=== PATIENT | female | born 1970 | race Caucasian/White ===

== ENCOUNTER 2020-02-25 09:21 | Inpatient (IN) | payer MEDICARE, SELFPAY ==
[2020-02-25] VITALS (10 sets, daily range): BP systolic 125–216; BP diastolic 73–120; PULSE 68–96; RESP 12–20; TEMP 36.4–36.6; O2SAT 95–97; BMI 28.1
--- NOTE | 2020-02-25 09:29 | ECG_ITS ---
Test Reason : WEAKNESS Blood Pressure : / mmHG Vent. Rate : 089 BPM Atrial Rate : 089 BPM P-R Int : 136 ms QRS Dur : 072 ms QT Int : 356 ms P-R-T Axes : 044 018 039 degrees QTc Int : 433 ms Normal sinus rhythm Possible Left atrial enlargement Borderline ECG No previous ECGs available Referred By: Betsy Lopez Electronically Signed By:Chaim Savage
--- NOTE | 2020-02-25 09:30 | XR_ITS ---
EXAMINATION: XR CHEST CLINICAL INFORMATION: Cough. COMPARISON: None TECHNIQUE: Frontal view of the chest was obtained. FINDINGS: No significant abnormality is noted involving the heart, lungs, mediastinum, bony thorax or soft tissues. XR/XR chest 1V IMPRESSION: Unremarkable chest examination.
--- NOTE | 2020-02-25 09:36 | ED_ITS ---
HPI - URI/Sore Throat General Stated Complaint: COVID LIKE SYMPTOMS Time Seen by Provider: 02/25/20 09:29 Source: patient and EMS Mode of arrival: EMS Limitations: no limitations History of Present Illness MD elicited complaint: fever, cough and other (body aches, weakness, anorexia, has not taken BP medications in 3 days, takin robitussin OTC) Onset (ago): day(s) (3) Consistency: constant Severity: moderate Description of mucous: clear Able to tolerate fluids by mouth: Yes Exacerbating factors: exertion Relieving factors: OTC cold medicine Associated symptoms: fever, chills, myalgias, nasal congestion and cough Treatments prior to arrival: none Related Data Allergies Allergy/AdvReac Type Severity Reaction Status Date / Time Iodinated Contrast Media Allergy Mild RASH Unverified 11/27/19 16:37 [CONTRAST, IV] DECONGESTIONS Allergy Unknown INCREASED Uncoded 11/27/19 16:37 HEART RATE Review of Systems Review of Systems: .ROSConstitutional : pos Fever, pos Chills ENT/Mouth : No sore throat, No Rhinorrhea, No Swallowing Difficulty Eyes: No Eye Pain, No Swelling, No Redness Cardiovascular : No Chest Pain, positive SOB, No Orthopnea, no Edema Respiratory : pos Cough, No Sputum, No Wheezing, positive dyspnea Gastrointestinal : No Nausea, No Vomiting, No Diarrhea, No abdominal Pain, No Hematochezia, No Melena Genitourinary : No Dysuria, No Urinary Frequency, No Hematuria Musculoskeletal : No joint pain, pos Myalgias Skin : No Skin Lesions, No rash Neuro : No Weakness, No Numbness, No Dizziness, No Headache Psych : No Anxiety/Panic, No Depression Heme/Lymph: No Bruising, No Lymphadenopathy Endocrine : No Polyuria, No Polydipsia All other systems reviewed and are negative [facility] Past Medical History Attestation statement: The following information was validated with the patient. Medical History (Updated 02/25/20 @ 15:23 by Betsy Lopez DO) Cerebral aneurysm HTN (hypertension) Myocardial infarct Surgical History (Updated 02/25/20 @ 10:17 by Betsy Lopez DO) H/O craniotomy Social History Social History (Updated 02/25/20 @ 10:17 by Betsy Lopez DO) Smoking Status: Current every day smoker Use of substances other than those prescribed or required for medical reasons: No Advance Directives: No Advance Directives Information Provided: Yes Physical Exam Vital Signs: Vital Signs: Last Vital Signs Temp 97.9 F 02/25/20 13:01 Pulse 68 02/25/20 15:02 Resp 12 02/25/20 15:02 BP 178/99 H 02/25/20 15:02 Pulse Ox 96 02/25/20 15:02 Appearance: Alert. Oriented X3. Anxious, mild acute distress. Eyes: Pupils equal, round and reactive to light. ENT: Pharynx normal. Neck: Normal inspection. Neck supple. CVS: Normal heart rate and rhythm. Pulses normal. Respiratory: No respiratory distress. Breath sounds normal. Abdomen: Soft and nontender. Skin: Skin warm and dry. Normal skin color. Normal skin turgor. Extremities: No lower extremity edema. No calf ttp Neuro: Oriented X 3. No motor deficit. No sensory deficit. Course Course Course Narrative: BP increased, IV labetalol ordered at this time, may require medical admission for HTNive episode lactic acidosis increased repeat IVF ordered, she states she is very anxious and admits to daily use of 3 nips ?ETOH withdrawal, trop remains flat repeat IV anti HTNive medications, IV ativan, start on phenobarb protocol lactic acidosis and LFTs likely due to ETOH and ETOH withdrawal and not infection or severe sepsis MDM - URI/Sore Throat MDM Narrative Medical decision making narrative: 49 yo female with URIs and HTN due to lack of her medications and taking OTC cold medicine at this time will need labs, COVID swab, CXR, IV morphine for body aches, PO BP medications, dispo per results and findigns. Lab Data Result diagrams: 02/25/20 10:27 02/25/20 10:26 Labs: Lab Results 02/25/20 02/25/20 02/25/20 Range/Units 10:26 10:26 10:26 WBC (4.8-10.8) X10*3/uL RBC (4.20-5.50) X10*6/uL Hgb (12.0-16.0) g/dl Hct (37-47) % MCV (80-98) fL MCH (27.0-33.0) pg MCHC (31.0-35.0) g/dl RDW (11.0-16.0) % Plt Count (160-400) X10*3/uL MPV (9.4-12.3) fL Immature Gran % (Auto) (0.0-0.4) % Neut % (Auto) (45-73) % Lymph % (Auto) (20-40) % [place] % (Auto) (2-11) % Eos % (Auto) (0-4) % Baso % (Auto) (0-2) % Lymph # (Auto) (1.2-4.9) X10*3/uL [place] # (Auto) (0.1-1.2) X10*3/uL Eos # (Auto) (0.0-0.4) X10*3/uL Baso # (Auto) (0.0-0.2) X10*3/uL Abs Immat Gran (auto) (0.00-0.03) X10*3/uL Absolute Neuts (auto) (2.0-8.3) X10*3/uL Absolute Nucleated RBC (0.0-0.012) X10*3/uL Nucleated RBC % (auto) (0.0-0.2) /100WBC Hold Blue Top SEE NOTE Sodium 139 (135-145) mmol/L Potassium 3.5 (3.3-5.1) mmol/l Chloride 102 (96-108) mmol/L Carbon Dioxide 24 (22-29) mmol/L Anion Gap 17 (12-20) BUN 5 L (9-16) mg/dL Creatinine 0.75 (0.5-1.4) mg/dL Estim Creat Clear Calc TNP Estimated GFR > 60 Random Glucose 100 (60-115) mg/dL Lactic Acid 3.4 H* (0.5-2.0) mmol/L Lactic Acid Fup @ 2Hr (0.5-2.0) mmol/L Calcium 8.2 L (8.4-10.2) mg/dL Magnesium (1.6-2.6) mg/dL Ferritin 465 H (10-250) ng/mL Total Bilirubin 1.2 H (0.0-1.0) mg/dL Direct Bilirubin 0.5 (0.0-0.5) mg/dL AST 50 H (5-31) U/L ALT 50 H (0-31) U/L Alkaline Phosphatase 233 H (39-117) U/L Lactate Dehydrogenase 246 H (122-220) U/L Total Creatine Kinase 63 (26-140) U/L Troponin I High Sens (<3.5-17.0) ng/L Total Protein 6.8 (6.5-8.0) g/dL Albumin 3.5 (3.5-5.0) g/dL Coronavirus (PCR) (Negative) Influenza Type A (PCR) (Negative) Influenza Type B (PCR) (Negative) RSV RNA Qual (PCR) (Negative) 02/25/20 02/25/20 02/25/20 Range/Units 10:26 10:26 10:26 WBC (4.8-10.8) X10*3/uL RBC (4.20-5.50) X10*6/uL Hgb (12.0-16.0) g/dl Hct (37-47) % MCV (80-98) fL MCH (27.0-33.0) pg MCHC (31.0-35.0) g/dl RDW (11.0-16.0) % Plt Count (160-400) X10*3/uL MPV (9.4-12.3) fL Immature Gran % (Auto) (0.0-0.4) % Neut % (Auto) (45-73) % Lymph % (Auto) (20-40) % [place] % (Auto) (2-11) % Eos % (Auto) (0-4) % Baso % (Auto) (0-2) % Lymph # (Auto) (1.2-4.9) X10*3/uL [place] # (Auto) (0.1-1.2) X10*3/uL Eos # (Auto) (0.0-0.4) X10*3/uL Baso # (Auto) (0.0-0.2) X10*3/uL Abs Immat Gran (auto) (0.00-0.03) X10*3/uL Absolute Neuts (auto) (2.0-8.3) X10*3/uL Absolute Nucleated RBC (0.0-0.012) X10*3/uL Nucleated RBC % (auto) (0.0-0.2) /100WBC Hold Blue Top Sodium (135-145) mmol/L Potassium (3.3-5.1) mmol/l Chloride (96-108) mmol/L Carbon Dioxide (22-29) mmol/L Anion Gap (12-20) BUN (9-16) mg/dL Creatinine (0.5-1.4) mg/dL Estim Creat Clear Calc Estimated GFR Random Glucose (60-115) mg/dL Lactic Acid (0.5-2.0) mmol/L Lactic Acid Fup @ 2Hr (0.5-2.0) mmol/L Calcium (8.4-10.2) mg/dL Magnesium 1.7 (1.6-2.6) mg/dL Ferritin (10-250) ng/mL Total Bilirubin (0.0-1.0) mg/dL Direct Bilirubin (0.0-0.5) mg/dL AST (5-31) U/L ALT (0-31) U/L Alkaline Phosphatase (39-117) U/L Lactate Dehydrogenase (122-220) U/L Total Creatine Kinase (26-140) U/L Troponin I High Sens 22.1 H (<3.5-17.0) ng/L Total Protein (6.5-8.0) g/dL Albumin (3.5-5.0) g/dL Coronavirus (PCR) NEGATIVE (Negative) Influenza Type A (PCR) NEGATIVE (Negative) Influenza Type B (PCR) NEGATIVE (Negative) RSV RNA Qual (PCR) NEGATIVE (Negative) 02/25/20 02/25/20 02/25/20 Range/Units 10:27 13:47 13:47 WBC 5.7 (4.8-10.8) X10*3/uL RBC 4.51 (4.20-5.50) X10*6/uL Hgb 16.0 (12.0-16.0) g/dl Hct 45.8 (37-47) % MCV 101.6 H (80-98) fL MCH 35.5 H (27.0-33.0) pg MCHC 34.9 (31.0-35.0) g/dl RDW 13.5 (11.0-16.0) % Plt Count 261 (160-400) X10*3/uL MPV 9.8 (9.4-12.3) fL Immature Gran % (Auto) 0.2 (0.0-0.4) % Neut % (Auto) 63.7 (45-73) % Lymph % (Auto) 27.0 (20-40) % [place] % (Auto) 6.3 (2-11) % Eos % (Auto) 1.9 (0-4) % Baso % (Auto) 0.9 (0-2) % Lymph # (Auto) 1.6 (1.2-4.9) X10*3/uL [place] # (Auto) 0.4 (0.1-1.2) X10*3/uL Eos # (Auto) 0.1 (0.0-0.4) X10*3/uL Baso # (Auto) 0.1 (0.0-0.2) X10*3/uL Abs Immat Gran (auto) 0.01 (0.00-0.03) X10*3/uL Absolute Neuts (auto) 3.7 (2.0-8.3) X10*3/uL Absolute Nucleated RBC 0.000 (0.0-0.012) X10*3/uL Nucleated RBC % (auto) 0.0 (0.0-0.2) /100WBC Hold Blue Top Sodium (135-145) mmol/L Potassium (3.3-5.1) mmol/l Chloride (96-108) mmol/L Carbon Dioxide (22-29) mmol/L Anion Gap (12-20) BUN (9-16) mg/dL Creatinine (0.5-1.4) mg/dL Estim Creat Clear Calc Estimated GFR Random Glucose (60-115) mg/dL Lactic Acid (0.5-2.0) mmol/L Lactic Acid Fup @ 2Hr 3.9 H* (0.5-2.0) mmol/L Calcium (8.4-10.2) mg/dL Magnesium (1.6-2.6) mg/dL Ferritin (10-250) ng/mL Total Bilirubin (0.0-1.0) mg/dL Direct Bilirubin (0.0-0.5) mg/dL AST (5-31) U/L ALT (0-31) U/L Alkaline Phosphatase (39-117) U/L Lactate Dehydrogenase (122-220) U/L Total Creatine Kinase (26-140) U/L Troponin I High Sens 23.9 H (<3.5-17.0) ng/L Total Protein (6.5-8.0) g/dL Albumin (3.5-5.0) g/dL Coronavirus (PCR) (Negative) Influenza Type A (PCR) (Negative) Influenza Type B (PCR) (Negative) RSV RNA Qual (PCR) (Negative) ECG Data Attestation: I personally reviewed and interpreted this ECG as follows: ECG interpretation date: 02/25/20 ECG interpretation time: 10:18 Interpretation: Rate: 89 Rhythm: NSR [place]: normal Normal P waves. Normal WAQAR. Normal QRS complex. ST T wave : normal qTC: normal prior studies: no acute ischemia The study has been interpreted contemporaneously by me. . Critical Care Time Critical Care Time Critical Care Time: Yes Total Critical Care Time: 35 Attestation: repeat IV labetalol, IV ativan, phenobarb protocol for ETOH withdrawal I attest to this time spent taking care of the patient Discharge Plan Discharge Clinical Impression: Acidosis, lactic HTN (hypertension) Qualifiers: Hypertension type: unspecified Qualified Code(s): I10 - Essential (primary) hypertension Alcohol withdrawal Qualifiers: Complication of substance-induced condition: uncomplicated Qualified Code(s): F10.230 - Alcohol dependence with withdrawal, uncomplicated Patient Disposition: Admitted As Inpatient
[2020-02-25 10:42] LABS: MANUAL DIFF FLAG NO
[2020-02-25 10:50] LABS: White Blood Count 5.7 X10*3/uL (4.8-10.8)
[2020-02-25 10:51] LABS: Basophils Absolute Auto 0.1 X10*3/uL (0.0-0.2); Basophils Percent Auto 0.9 % (0-2); Eosinophils Absolute Auto 0.1 X10*3/uL (0.0-0.4); Eosinophils Percent Auto 1.9 % (0-4); Hematocrit 45.8 % (37-47); Imm Gran Abs Auto 0.01 X10*3/uL (0.00-0.03); Imm Gran Pct Auto 0.2 % (0.0-0.4); Lymphocytes Absolute Auto 1.6 X10*3/uL (1.2-4.9); Mean Corpuscular HGB Conc 34.9 g/dl (31.0-35.0); Mean Corpuscular Hemoglobin 35.5 pg (27.0-33.0); Mean Corpuscular Volume 101.6 fL (80-98); Mean Platelet Volume 9.8 fL (9.4-12.3); Monocytes Absolute Auto 0.4 X10*3/uL (0.1-1.2); Monocytes Percent Auto 6.3 % (2-11); Neutrophils Absolute Auto 3.7 X10*3/uL (2.0-8.3); Neutrophils Percent Auto 63.7 % (45-73); Platelet Count 261 X10*3/uL (160-400); Red Blood Count 4.51 X10*6/uL (4.20-5.50); Red Cell Distribution Width 13.5 % (11.0-16.0)
[2020-02-25 11:07] LABS: Magnesium 1.7 mg/dL (1.6-2.6)
[2020-02-25 11:09] LABS: Alanine Aminotransferase 50 U/L (0-31); Albumin Level 3.5 g/dL (3.5-5.0); Alkaline Phosphatase 233 U/L (39-117); Anion Gap 17 (12-20); Aspartate Amino Transferase 50 U/L (5-31); Bilirubin Direct 0.5 mg/dL (0.0-0.5); Bilirubin Total 1.2 mg/dL (0.0-1.0); Blood Urea Nitrogen 5 mg/dL (9-16); Calcium 8.2 mg/dL (8.4-10.2); Carbon Dioxide 24 mmol/L (22-29); Chloride 102 mmol/L (96-108); Estimated Glomerular Filt Rate > 60; Glucose Random 100 mg/dL (60-115); Lactate Dehydrogenase 246 U/L (122-220); Lactic Acid 3.4 mmol/L (0.5-2.0); Potassium 3.5 mmol/l (3.3-5.1); Sodium 139 mmol/L (135-145); Total Protein 6.8 g/dL (6.5-8.0)
[2020-02-25 11:27] LABS: Influenza A PCR NEGATIVE (Negative); Influenza B PCR NEGATIVE (Negative); Resp Syncy Virus RNA Qual PCR NEGATIVE (Negative); SARS COV2 PCR INHOUSE NEGATIVE (Negative)
[2020-02-25 11:31] LABS: Ferritin 465 ng/mL (10-250)
--- NOTE | 2020-02-25 11:37 | CT_ITS ---
EXAMINATION: CT CHEST WITHOUT CONTRAST CLINICAL INFORMATION: Cough and fevers COMPARISON: Chest x-ray of same day and CTA of January 21, 2018 TECHNIQUE: Multidetector volumetric CT imaging of the chest was done. Axial MIP volume rendering provided. Sagittal and coronal reformatted images were obtained. This CT examination was performed using dose optimization techniques as appropriate, variously including the following: *Automated exposure control *Adjustment of mA and/or kV according to patient size (this includes techniques or standardized protocols for targeted exams where dose is matched to indication/reason for exam; i.e. extremities or head) *Use of iterative reconstruction technique DLP: 219 mGy-cm FINDINGS: LUNGS: There are mild changes of centrilobular emphysema seen within the upper lobes bilaterally. Central airways are patent. No evidence of bronchiectasis. There is bilateral bronchial wall thickening present. No confluent pneumonitis. There is some mild dependent atelectasis bilaterally.There are a few sub-4 mm densities present. There are regions of scarring or discoid atelectasis seen about the anterior aspect of the lower lobes bilaterally. There is a 5 mm noncalcified nodular density seen within the right middle lobe on image 321 of [id number]. This was present on prior study of January 21, 2018 MEDIASTINUM: Heart normal size. Coronary artery calcification seen. Small amount of aortic valve calcification noted. No pericardial effusion. No mediastinal or hilar lymphadenopathy. No thoracic aortic aneurysm. PLEURA: There is no pleural effusion. No pleural mass or thickening. AXILLA: No lymphadenopathy. UPPER ABDOMEN: There is diffuse fatty infiltration of the liver. No adrenal gland masses. OSSEOUS STRUCTURES: No suspicious destructive bony lesions identified. CT/CT chest wo con IMPRESSION: Mild changes of centrilobular emphysema within the upper lobes bilaterally. Stable right middle lobe density. No significant confluent airspace disease appreciated.
[2020-02-25 11:44] LABS: Troponin-I High Sensitivity 22.1 ng/L (<3.5-17.0)
[2020-02-25] MEDS: 0.9 % Sodium Chloride 500 ML IV (11:45)
--- NOTE | 2020-02-25 11:48 | PC.NURSE ---
PTS CHARTING WAS INITIALLY PAPER DOCUMENTATION PLEASE SEE DOWNTIME FORMS
[2020-02-25 12:42] LABS: Reflex Lactate? Lactic Acid Added
[2020-02-25] MEDS: ondansetron HCL 4 MG/2 ML VIAL IVPUSH (12:57)
[2020-02-25] MEDS: Labetalol HCL 100 MG/20 ML VIAL 10 MG IVPUSH ×2 (12:59→14:26)
[2020-02-25] MEDS: oxyCODONE HCl Immed Release 5 MG TABLET 10 MG PO (13:53)
--- NOTE | 2020-02-25 14:34 | PC.NURSE ---
Pt reports decreased nausea s/p dose of Zofran, tolerating po fluids. C/O generalized body pain- medicated per mar. awaiting lab results
[2020-02-25 14:40] LABS: ~Lactic Acid-LAB USE ONLY 3.9 mmol/L (0.5-2.0)
[2020-02-25 14:47] LABS: Troponin-I High Sensitivity 23.9 ng/L (<3.5-17.0)
[2020-02-25] MEDS: 0.9 % Sodium Chloride 1,000 ML 999 ML IVCONT (15:27)
[2020-02-25] MEDS: LORazepam 2 MG/ML VIAL 1 MG IVPUSH (15:27)
--- NOTE | 2020-02-25 15:49 | PC.NURSE ---
PT MEDICATED CHARTED SHE IS NOW SLEEPING AND APPEARS MORE COMFORTABLE
[2020-02-25 15:56] LABS: Reflex Lactate? 2 Y
--- NOTE | 2020-02-25 15:58 | US_ITS ---
EXAMINATION: US ABDOMEN COMPLETE CLINICAL INFORMATION: Right upper quadrant tenderness. COMPARISON: None TECHNIQUE: Real-time imaging of the abdominal viscera. FINDINGS: PANCREAS: Normal. ABDOMINAL AORTA: The proximal, mid, and distal segments are normal in caliber. INFERIOR VENA CAVA: Visualized portions are normal. LIVER: Diffuse increased echotexture without focal abnormality. GALLBLADDER: Normal. The gallbladder is physiologically distended without evidence of stones, sludge, polyps, wall thickening or pericholecystic fluid. COMMON BILE DUCT: Normal in caliber measuring 0.3 cm in diameter. RIGHT KIDNEY: Normal. No hydronephrosis. No renal calculi or focal parenchymal lesions. The kidney measures 10.0 cm in maximum dimension. LEFT KIDNEY: Normal. No hydronephrosis. No renal calculi or focal parenchymal lesions. The kidney measures 9.8 cm in maximum dimension. SPLEEN: Normal. The spleen measures 7.6 cm in maximum dimension. FREE FLUID: None. US/US abdomen complete IMPRESSION: Hepatic steatosis. No acute abnormality.
--- NOTE | 2020-02-25 16:30 | P.HPHOSP_ITS ---
History of Present Illness Date of Service: 02/25/20 <LALITA Jordan - Last Filed: 02/25/20 16:41> Chief Complaint: Body aches <LALITA Jordan - Last Filed: 02/25/20 16:41> This is a 49-year-old female who presented to the emergency department with multiple complaints. She reports fever, cough, body aches since Sunday. She has no known sick contacts. Her COVID swab and chest CT were both negative. She has not taken her medication in several days because she has not been feeling well. Today in the emergency department she was afebrile however her blood pressure was elevated as high as 216/120. She was given 2 doses of IV labetalol as well as oral lisinopril and Norvasc. Her blood pressure improved to 178/99. She denies any headache, shortness of breath, chest pain, visual c hanges. Lab work was significant for mild transaminitis, alkaline phosphatase 233, LDH 246 and elevated lactic acid of 3.4. She was given IV fluid and her lactic acid increased to 3.9. She denied any abdominal pain but was somewhat tender in the right upper quadrant. She reported nausea but denies vomiting or diarrhea. Given her increase in lactic acid the decision was made to admit her for further management. <LALITA Jordan - Last Filed: 02/25/20 16:41> Review of Systems Review of Systems: Yes all other systems are reviewed and are negative <LALITA Jordan - Last Filed: 02/25/20 16:41> Constitutional: Constitutional: Denies chills <LALITA Jordan - Last Filed: 02/25/20 16:41> Cardiovascular: Cardiovascular: Denies chest pain <LALITA Jordan - Last Filed: 02/25/20 16:41> Gastrointestinal: Gastrointestinal: Denies abdominal pain, Denies diarrhea, Reports nausea and Denies vomiting <LALITA Jordan - Last Filed: 02/25/20 16:41> PENDING SALE TO [facility] Medical History: Medical History Cerebral aneurysm HTN (hypertension) Myocardial infarct <LALITA Jordan - Last Filed: 02/25/20 16:41> Functional capacity: independent ambulation <LALITA Jordan - Last Filed: 02/25/20 16:41> Pertinent family history: Heart disease in her father <LALITA Jordan - Last Filed: 02/25/20 16:41> Surgical History: Surgical History H/O craniotomy <LALITA Jordan - Last Filed: 02/25/20 16:41> Social History: Social History (Updated 02/25/20 @ 16:35 by LALITA Jordan) Household Members: Significant Other Housing: Apartment Alcohol intake: current Smoking Status: Current every day smoker Patient Interested in Nicotine Replacement: Yes Patient Given Instructions on How to Stop Smoking: Yes Date Education Initiated: 02/25/20 Use of substances other than those prescribed or required for medical reasons: No Substance Use Type: Marijuana Currently Displaying Signs/Symptoms of Drug Intoxication Withdrawal: No Have you been hit, kicked, punched, or otherwise hurt by someone within the past year? If so, by whom?: No Do you feel safe in your current relationship?: Yes Is there a partner from a previous relationship who is making you feel unsafe now?: No Are you made to feel afraid or neglected: No Advance Directives: No Advance Directives Information Provided: Yes Do you have thoughts of harming others: None Do you have a plan to hurt others: No Plan Recently lost weight without trying: No service: No Current occupational status: unemployed <LALITA Jordan - Last Filed: 02/25/20 16:41> Meds Allergies/Adverse reactions: Allergies Allergy/AdvReac Type Severity Reaction Status Date / Time Iodinated Contrast Media Allergy Mild RASH Verified 02/26/20 00:02 [CONTRAST, IV] DECONGESTIONS Allergy Unknown INCREASED Uncoded 11/27/19 16:37 HEART RATE <LALITA Jordan - Last Filed: 02/25/20 16:41> Home medications: Home Medications Medication Instructions Recorded Confirmed Type No Known Home Meds 02/25/20 02/25/20 History <LALITA Jordan - Last Filed: 02/25/20 16:41> Physical Exam Vital Signs and Narrative: Vital Signs: Last Vital Signs Temp 97.9 F 02/25/20 13:01 Pulse 68 02/25/20 15:02 Resp 12 02/25/20 15:02 BP 178/99 H 02/25/20 15:02 Pulse Ox 96 02/25/20 15:02 Body Mass Index 28.1 <LALITA Jordan - Last Filed: 02/25/20 16:41> Const: Nutritional Appearance: well nourished <LALITA Jordan - Last Filed: 02/25/20 16:41> Orientation/consciousness: patient oriented x3 <LALITA Jordan - Last Filed: 02/25/20 16:41> HENMT: Head: Yes normocephalic and Yes atraumatic <LALITA Jordan - Last Filed: 02/25/20 16:41> Eyes: Sclerae: sclerae normal <LALITA Jordan - Last Filed: 02/25/20 16:41> Chest: Chest palpation & inspection: normal inspection of the chest <LALITA Jordan - Last Filed: 02/25/20 16:41> Resp: Effort & Inspection: normal respiratory effort and no respiratory distress <LALITA Jordan - Last Filed: 02/25/20 16:41> Auscultation: clear to auscultation bilaterally <LALITA Jordan - Last Filed: 02/25/20 16:41> Cardio: Rate: regular rate <LALITA Jordan - Last Filed: 02/25/20 16:41> Rhythm: regular rhythm <LALITA Jordan - Last Filed: 02/25/20 16: 41> GI: Palpation (GI): Soft to palpation and Tenderness to palpation present (GI) in the RUQ; with no rebound tenderness <LALITA Jordan - Last Filed: 02/25/20 16:41> Skin: General skin exam: no rashes or lesions noted <LALITA Jordan - Last Filed: 02/25/20 16:41> Neuro: General: patient oriented x3 <LALITA Jordan - Last Filed: 02/25/20 16:41> Cranial nerves: Yes CN's II-XII intact bilaterally and Yes Bilaterally intact EOM present <LALITA Jordan - Last Filed: 02/25/20 16:41> Extrem: General: Yes normal to inspection <LALITA Jordan - Last Filed: 02/25/20 16:41> Results Labs CBC and Chem 7: : 02/26/20 05:32 02/26/20 05:32 <LALITA Jordan - Last Filed: 02/25/20 16:41> Labs: Laboratory Results - last 24 hr 02/25/20 02/25/20 02/25/20 10:26 10:26 10:26 MCV MCH MCHC RDW Plt Count MPV Immature Gran % (Auto) Neut % (Auto) Lymph % (Auto) [place] % (Auto) Eos % (Auto) Baso % (Auto) Lymph # (Auto) [place] # (Auto) Eos # (Auto) Baso # (Auto) Abs Immat Gran (auto) Absolute Neuts (auto) Absolute Nucleated RBC Nucleated RBC % (auto) Hold Blue Top SEE NOTE Anion Gap 17 Estim Creat Clear Calc TNP Estimated GFR > 60 Random Glucose 100 Lactic Acid 3.4 H* Lactic Acid Fup @ 2Hr Calcium 8.2 L Magnesium Ferritin 465 H Total Bilirubin 1.2 H Direct Bilirubin 0.5 AST 50 H ALT 50 H Alkaline Phosphatase 233 H Lactate Dehydrogenase 246 H Total Creatine Kinase 63 Troponin I High Sens Total Protein 6.8 Albumin 3.5 Coronavirus (PCR) Influenza Type A (PCR) Influenza Type B (PCR) RSV RNA Qual (PCR) 02/25/20 02/25/20 02/25/20 10:26 10:26 10:26 MCV MCH MCHC RDW Plt Count MPV Immature Gran % (Auto) Neut % (Auto) Lymph % (Auto) [place] % (Auto) Eos % (Auto) Baso % (Auto) Lymph # (Auto) [place] # (Auto) Eos # (Auto) Baso # (Auto) Abs Immat Gran (auto) Absolute Neuts (auto) Absolute Nucleated RBC Nucleated RBC % (auto) Hold Blue Top Anion Gap Estim Creat Clear Calc Estimated GFR Random Glucose Lactic Acid Lactic Acid Fup @ 2Hr Calcium Magnesium 1.7 Ferritin Total Bilirubin Direct Bilirubin AST ALT Alkaline Phosphatase Lactate Dehydrogenase Total Creatine Kinase Troponin I High Sens 22.1 H Total Protein Albumin Coronavirus (PCR) NEGATIVE Influenza Type A (PCR) NEGATIVE Influenza Type B (PCR) NEGATIVE RSV RNA Qual (PCR) NEGATIVE 02/25/20 02/25/20 02/25/20 10:27 13:47 13:47 MCV 101.6 H MCH 35.5 H MCHC 34.9 RDW 13.5 Plt Count 261 MPV 9.8 Immature Gran % (Auto) 0.2 Neut % (Auto) 63.7 Lymph % (Auto) 27.0 [place] % (Auto) 6.3 Eos % (Auto) 1.9 Baso % (Auto) 0.9 Lymph # (Auto) 1.6 [place] # (Auto) 0.4 Eos # (Auto) 0.1 Baso # (Auto) 0.1 Abs Immat Gran (auto) 0.01 Absolute Neuts (auto) 3.7 Absolute Nucleated RBC 0.000 Nucleated RBC % (auto) 0.0 Hold Blue Top Anion Gap Estim Creat Clear Calc Estimated GFR Random Glucose Lactic Acid Lactic Acid Fup @ 2Hr 3.9 H* Calcium Magnesium Ferritin Total Bilirubin Direct Bilirubin AST ALT Alkaline Phosphatase Lactate Dehydrogenase Total Creatine Kinase Troponin I High Sens 23.9 H Total Protein Albumin Coronavirus (PCR) Influenza Type A (PCR) Influenza Type B (PCR) RSV RNA Qual (PCR) <LALITA Jordan - Last Filed: 02/25/20 16:41> Imaging Radiologist's Impressions: Impressions Chest X-Ray 02/25/20 09:30 IMPRESSION: Unremarkable chest examination. Chest CT 02/25/20 11:37 IMPRESSION: Mild changes of centrilobular emphysema within the upper lobes bilaterally. Stable right middle lobe density. No significant confluent airspace disease appreciated. <LALITA Jordan - Last Filed: 02/25/20 16:41> Assessment and Plan (1) HTN (hypertension): Qualifiers: Hypertension type: unspecified Qualified Code(s): I10 - Essential (primary) hypertension <LALITA Jordan Last Filed: 02/25/20 16:41> Status: Acute <LALITA Jordan Last Filed: 12/16/20 16:41> (2) Acidosis, lactic: Status: Acute <LALITA Jordan - Last Filed: 02/25/20 16:41> This is a 49-year-old female with a history of hypertension who presents the emergency department with multiple complaints found to have elevated blood pressure and lactic acidosis. Uncontrolled hypertension Related to medication noncompliance/OTC cough medicine. Possible component of alcohol withdrawal as well Troponin flat Improved with IV labetalol Resume home medication when med reconciliation has been completed Monitor blood pressure closely Elevated lactic acid No evidence of infection at this time IV fluid Trend lactic acid Alcohol abuse IV phenobarbital ordered in ED Consider care team evaluation prior to discharge Elevated LFTs Possibly related to alcohol abuse Trend liver profile Right upper quadrant tenderness Abdominal ultrasound Tobacco dependence Smoking cessation advised NRT DVT prophylaxis-Lovenox code status-full code This case was discussed with Dr. Bhagat <LALITA Jordan - Last Filed: 02/25/20 16:41>
--- NOTE | 2020-02-25 16:41 | PC.NURSE ---
VOMITING ABD CONTENTS REMAINS HTN
[2020-02-25] MEDS: PHENobarbitaL sodium 130 MG/ML VIAL 182 MG IM (17:47)
--- NOTE | 2020-02-25 17:54 | PC.NURSE ---
CALLED FOR REPORT FOR ADMISSION
[2020-02-25] MEDS: 0.9 % Sodium Chloride 1,000 ML 100 ML IVCONT (20:10)
[2020-02-25] MEDS: Enoxaparin Sodium 40 MG/0.4 ML SYRINGE SUBCUT (20:10)
[2020-02-25] MEDS: 0.9 % Sodium Chloride Flush 3 ML SYRINGE IVFLUSH (20:11)
[2020-02-25] MEDS: PHENobarbitaL sodium 130 MG/ML VIAL IM (22:06)
[2020-02-26] VITALS (12 sets, daily range): BP systolic 124–190; BP diastolic 63–100; PULSE 64–88; RESP 17–18; TEMP 36.1–36.9; O2SAT 95–99
[2020-02-26] MEDS: PHENobarbitaL sodium 130 MG/ML VIAL IM (01:46)
[2020-02-26 06:01] LABS: MANUAL DIFF FLAG NO
[2020-02-26 06:10] LABS: Basophils Percent Auto 0.5 % (0-2); Eosinophils Absolute Auto 0.1 X10*3/uL (0.0-0.4); Eosinophils Percent Auto 1.7 % (0-4); Hematocrit 37.2 % (37-47); Hemoglobin 12.7 g/dl (12.0-16.0); Imm Gran Abs Auto 0.02 X10*3/uL (0.00-0.03); Imm Gran Pct Auto 0.3 % (0.0-0.4); Lymphocytes Absolute Auto 2.1 X10*3/uL (1.2-4.9); Lymphocytes Percent Auto 31.4 % (20-40); Mean Corpuscular HGB Conc 34.1 g/dl (31.0-35.0); Mean Corpuscular Hemoglobin 35.9 pg (27.0-33.0); Mean Corpuscular Volume 105.1 fL (80-98); Monocytes Absolute Auto 0.4 X10*3/uL (0.1-1.2); Monocytes Percent Auto 5.3 % (2-11); Neutrophils Absolute Auto 4.1 X10*3/uL (2.0-8.3); Neutrophils Percent Auto 60.8 % (45-73); Platelet Count 184 X10*3/uL (160-400); Red Blood Count 3.54 X10*6/uL (4.20-5.50); Red Cell Distribution Width 13.5 % (11.0-16.0); White Blood Count 6.7 X10*3/uL (4.8-10.8)
[2020-02-26 06:36] LABS: Alanine Aminotransferase 33 U/L (0-31); Albumin Level 2.8 g/dL (3.5-5.0); Alkaline Phosphatase 181 U/L (39-117); Anion Gap 13 (12-20); Aspartate Amino Transferase 45 U/L (5-31); Bilirubin Direct 0.7 mg/dL (0.0-0.5); Bilirubin Total 1.8 mg/dL (0.0-1.0); Blood Urea Nitrogen 3 mg/dL (9-16); Calcium 7.3 mg/dL (8.4-10.2); Carbon Dioxide 24 mmol/L (22-29); Chloride 104 mmol/L (96-108); Creatinine Clr Calc Pharmacy 92.6; Estimated Glomerular Filt Rate > 60; Glucose Random 94 mg/dL (60-115); Potassium 3.2 mmol/l (3.3-5.1); Sodium 138 mmol/L (135-145); Total Protein 5.2 g/dL (6.5-8.0)
[2020-02-26] MEDS: 0.9 % Sodium Chloride 1,000 ML 100 ML IVCONT ×2 (06:37→15:24)
[2020-02-26] MEDS: Nicotine 14 MG PATCH.TD24 TRANSDERMA (07:41)
[2020-02-26] MEDS: 0.9 % Sodium Chloride Flush 3 ML SYRINGE IVFLUSH ×2 (07:42→15:24)
[2020-02-26] MEDS: PHENobarbitaL 30 MG TABLET PO ×2 (07:42→20:17)
[2020-02-26 12:58] LABS: Lactic Acid 1.1 mmol/L (0.5-2.0)
--- NOTE | 2020-02-26 14:36 | MHC.CM.PN ---
pt reports she lives at home with her boyfriend and is independent with all care/mobility. Pt reports she has no services and no DME. pt reports she does not have withdrawals from alcohol and was offended when the nurse gave her meds for withdrawal. Pt reports she would like to go home, she says both her pain and anxiety have increased. pts medicare rights were reviewed and she reports understanding pt will DC home with no services pt will arrange transportation
[2020-02-26] MEDS: hydrOXYzine HCL 25 MG TABLET PO ×2 (15:22→21:21)
[2020-02-26] MEDS: Acetaminophen 325 MG TABLET 650 MG PO (15:22)
--- NOTE | 2020-02-26 15:40 | HO.PM.IMPN ---
Subjective Subjective Date of Service: 02/26/20 Interval History: Seen in f/u for alcohol withdrawal and elevated BP. Seems anxious and BP remains high. Per Pharmacy she has not been taking medication for quite sometime Review of Systems Gen: no fever Resp: no sob, no cough CV: no chest, no JAMES, no leg edema GI: No n/v, no abd pain, has diarrhea Neuro: No confusion but very anxious Physical Exam Vital Signs: Vital Signs: Last Vital Signs Temp 97 F 02/26/20 15:30 Pulse 81 02/26/20 15:30 Resp 18 02/26/20 15:30 BP 190/100 H 02/26/20 15:30 Pulse Ox 98 02/26/20 15:30 Body Mass Index 28.1 General: AO X 3, no acute distress Resp: CTA bilateral CVS: S1,S2,RRR GI: +BS, NT, no distention Skin: No rash Neuro: motor grossly intact Psych: appropriate affect Objective Data Current Medications Generic Name Dose Route Start Last Admin Trade Name Freq PRN Reason Stop Dose Admin Acetaminophen 650 mg 02/25/20 19:49 02/26/20 15:22 Acetaminophen 325 Mg Tablet PO 650 mg Q6H PRN Administration Pain, Mild (Pain Scale 1-3) Amlodipine Besylate 5 mg 02/26/20 15:40 Amlodipine Besylate 5 Mg Tablet PO DAILY JENNY Protocol Docusate Sodium 100 mg 02/25/20 19:49 Docusate Sodium 100 Mg Capsule PO DAILY PRN Constipation Enoxaparin Sodium 40 mg 02/25/20 20:00 02/25/20 20:10 Enoxaparin Sodium 40 Mg/0.4 Ml Syringe SUBCUT 40 mg Q24H JENNY Administration Hydroxyzine HCl 25 mg 02/26/20 15:12 02/26/20 15:22 Hydroxyzine Hcl 25 Mg Tablet PO 25 mg Q6H PRN Administration Anxiety Sodium Chloride 1,000 mls @ 100 mls/hr 02/25/20 19:49 02/26/20 15:24 Ns IVCONT 100 mls/hr .Q10H JENNY Administration Medication 1 each 02/26/20 09:00 No Benzodiazepines MISCELLANE DAILY JENNY Nicotine 14 mg 02/26/20 09:00 02/26/20 07:41 Nicotine 14 Mg Patch.Td24 TRANSDERMA 14 mg DAILY JENNY Administration Ondansetron HCl 4 mg 02/25/20 19:49 Ondansetron Hcl 4 Mg/2 Ml Vial IVPUSH Q8H PRN Nausea and Vomiting Pharmacy Consult 1 each 02/25/20 14:41 Consult Rx Perform Med Rec MISCELLANE ONCE PRN Consult order Phenobarbital 30 mg 02/26/20 09:00 02/26/20 07:42 Phenobarbital 30 Mg Tablet PO 02/27/20 21:01 30 mg BID JENNY Administration Phenobarbital 15 mg 02/28/20 09:00 Phenobarbital 15 Mg Tablet PO 02/29/20 21:01 BID JENNY Phenobarbital 15 mg 03/01/20 09:00 Phenobarbital 15 Mg Tablet PO 03/02/20 09:01 DAILY [facility] Sodium Chloride 3 ml 02/25/20 19:49 02/26/20 15:24 0.9 % Sodium Chloride Flush 3 Ml Syringe IVFLUSH 3 ml QSHIFT JENNY Administration Labs CBC & Chem 7: 02/26/20 05:32 02/26/20 05:32 Microbiology Microbiology Results: Microbiology 02/25/20 10:26 Blood - Venous Blood Culture - Preliminary No growth after 24 hours. 02/25/20 10:26 Blood - Venous Blood Culture - Preliminary No growth after 24 hours. Assessment and Plan (1) HTN (hypertension): Status: Acute (2) Acidosis, lactic: Status: Acute Assessment and Plan: 49-year-old female with a history of hypertension who presents the emergency department with multiple complaints found to have elevated blood pressure and lactic acidosis. Uncontrolled hypertension She hasn't taken meds since March (Shes' suppose to be on Lisinopril 20 and metoprolol 25 bid) Troponin flat--related to HTN, no further w/u at this time Diarrhea, get C dif if negative then give immodium Elevated lactic acid No evidence of infection at this time IV fluid Trend lactic acid Alcohol abuse/Alchol withdrawal continue phenobarbital ordered in ED Consider care team evaluation prior to discharge Elevated LFTs likely related to alcohol abuse Trend liver profile Right upper quadrant tenderness Abdominal ultrasound Tobacco dependence Smoking cessation advised NRT
[2020-02-26] MEDS: amLODIPine Besylate 5 MG TABLET PO (17:32)
[2020-02-26] MEDS: lisinopriL 10 MG TABLET PO (17:32)
--- NOTE | 2020-02-26 18:24 | PC.NURSE ---
Patient complained of anxiety. MD ordered PRN atarax. Given with positive results. Cdiff specimen sent. Pt hypertensive. Started on lisinopril and amlodipine. Will continue to monitor.
[2020-02-26 19:49] LABS: CDIFF Ag Negative (Negative); CDIFF Internal ctrl Dots and bkg OK (V); CDiff Toxin Negative (Negative)
[2020-02-26] MEDS: Enoxaparin Sodium 40 MG/0.4 ML SYRINGE SUBCUT (20:17)
[2020-02-26] MEDS: Metoprolol Tartrate 5 MG/5 ML VIAL IVPUSH (20:18)
[2020-02-26] MEDS: ondansetron HCL 4 MG/2 ML VIAL IVPUSH (21:21)
[2020-02-26] MEDS: Loperamide HCl 2 MG CAPSULE PO (21:58)
[2020-02-26] MEDS: hydrALAZINE HCl 20 MG/ML VIAL 5 MG IVPUSH (21:58)
[2020-02-27] MEDS: QUEtiapine Fumarate 25 MG TABLET PO (01:39)
[2020-02-27] MEDS: Loperamide HCl 2 MG CAPSULE PO (01:39)
[2020-02-27 03:14] VITALS: BP 141/78; PULSE 79; RESP 18; TEMP 36.8; O2SAT 98
[2020-02-27] MEDS: 0.9 % Sodium Chloride 1,000 ML 100 ML IVCONT (04:05)
[2020-02-27 07:42] VITALS: BP 162/78; PULSE 87; RESP 18; TEMP 36.6; O2SAT 95
[2020-02-27] MEDS: 0.9 % Sodium Chloride Flush 3 ML SYRINGE IVFLUSH (09:51)
[2020-02-27] MEDS: lisinopriL 10 MG TABLET PO (09:53)
[2020-02-27] MEDS: PHENobarbitaL 30 MG TABLET PO (09:53)
[2020-02-27] MEDS: amLODIPine Besylate 5 MG TABLET PO (09:53)
--- NOTE | 2020-02-27 10:55 | MHC.CM.PN ---
spoke with pts who reprts they were managing well prior to admision and does mnot anticapoate needing sercveis when dcd dc plan home mno servceis
--- NOTE | 2020-02-27 10:59 | MHC.CM.PN ---
note of 02/26 ws writtren on wrong pt due to a clerical error
--- NOTE | 2020-02-27 11:00 | PM.DS ---
DS: Providers Provider Date of admission: 02/25/20 15:58 Primary care physician: Unknown Physician DS: Diagnosis Discharge Diagnosis (1) HTN (hypertension): Status: Acute (2) Acidosis, lactic: Status: Resolved DS: Medications Discharge Medications Home Medications: Home Medications Medication Instructions Recorded Confirmed No Known Home Meds 02/25/20 02/25/20 DS: Summary Hospital Course Hospital Course: Admission date 02/25/20 Chief Complaint: body ache This is a 49-year-old female who presented to the emergency department with multiple complaints. She reports fever, cough, body aches since Sunday. She has no known sick contacts. Her COVID swab and chest CT were both negative. She has not taken her medication in several days because she has not been feeling well. Today in the emergency department she was afebrile however her blood pressure was elevated as high as 216/120. She was given 2 doses of IV labetalol as well as oral lisinopril and Norvasc. Her blood pressure improved to 178/99. She denies any headache, shortness of breath, chest pain, visual changes. Lab work was significant for mild transaminitis, alkaline phosphatase 233, LDH 246 and elevated lactic acid of 3.4. She was given IV fluid and her lactic acid increased to 3.9. She denied any abdominal pain but was somewhat tender in the right upper quadrant. She reported nausea but denies vomiting or diarrhea. Given her increase in lactic acid the decision was made to admit her for further management. Hospital course: Uncontrolled hypertension-- She hasn't taken meds since March (Shes' suppose to be on Lisinopril 20 and metoprolol 25 bid). She has been initiated on Lisnipril 10 and Norvasc 5 and vow she will take med. BP has significantly improved. She will need follow up for possible med adjustment. Troponin flat--related to HTN, no further w/u at this time Diarrhea, C dif was negative. Elevated lactic acid No evidence of infection at this time IV fluid Trend lactic acid Alcohol abuse/Alchol withdrawal--Treated with Phenobarbital and presently no withdrawal symptoms. Elevated LFTs likely related to alcohol abuse Trend liver profile Right upper quadrant tenderness Abdominal ultrasound showed fattly liver disease Tobacco dependence Smoking cessation advised Physical Exam Vital Signs: Vital Signs: Last Vital Signs Temp 97.8 F 02/27/20 07:42 Pulse 87 02/27/20 07:42 Resp 18 02/27/20 07:42 BP 162/78 H 02/27/20 07:42 Pulse Ox 95 02/27/20 07:42 Body Mass Index 28.1 General: AO X 3, no acute distress Resp: CTA bilateral CVS: S1,S2,RRR GI: +BS, NT, no distention Skin: No rash Neuro: motor grossly intact Psych: appropriate affect DS: Data Data Completed and Pending Labs on day of discharge: Laboratory Last Values WBC 6.7 X10*3/uL (4.8-10.8) 02/26/20 05:32 RBC 3.54 X10*6/uL (4.20-5.50) L D 02/26/20 05:32 Hgb 12.7 g/dl (12.0-16.0) D 02/26/20 05:32 Hct 37.2 % (37-47) 02/26/20 05:32 MCV 105.1 fL (80-98) H 02/26/20 05:32 MCH 35.9 pg (27.0-33.0) H 02/26/20 05:32 MCHC 34.1 g/dl (31.0-35.0) 02/26/20 05:32 RDW 13.5 % (11.0-16.0) 02/26/20 05:32 Plt Count 184 X10*3/uL (160-400) D 02/26/20 05:32 MPV 10.0 fL (9.4-12.3) 02/26/20 05:32 Immature Gran % (Auto) 0.3 % (0.0-0.4) 02/26/20 05:32 Neut % (Auto) 60.8 % (45-73) 02/26/20 05:32 Lymph % (Auto) 31.4 % (20-40) 02/26/20 05:32 [place] % (Auto) 5.3 % (2-11) 02/26/20 05:32 Eos % (Auto) 1.7 % (0-4) 02/26/20 05:32 Baso % (Auto) 0.5 % (0-2) 02/26/20 05:32 Lymph # (Auto) 2.1 X10*3/uL (1.2-4.9) 02/26/20 05:32 [place] # (Auto) 0.4 X10*3/uL (0.1-1.2) 02/26/20 05:32 Eos # (Auto) 0.1 X10*3/uL (0.0-0.4) 02/26/20 05:32 Baso # (Auto) 0.0 X10*3/uL (0.0-0.2) 02/26/20 05:32 Abs Immat Gran (auto) 0.02 X10*3/uL (0.00-0.03) 02/26/20 05:32 Absolute Neuts (auto) 4.1 X10*3/uL (2.0-8.3) 02/26/20 05:32 Absolute Nucleated RBC 0.000 X10*3/uL (0.0-0.012) 02/26/20 05:32 Nucleated RBC % (auto) 0.0 /100WBC (0.0-0.2) 02/26/20 05:32 Hold Blue Top SEE NOTE 02/25/20 10:26 Sodium 138 mmol/L (135-145) 02/26/20 05:32 Potassium 3.2 mmol/l (3.3-5.1) L 02/26/20 05:32 Chloride 104 mmol/L (96-108) 02/26/20 05:32 Carbon Dioxide 24 mmol/L (22-29) 02/26/20 05:32 Anion Gap 13 (12-20) 02/26/20 05:32 BUN 3 mg/dL (9-16) L 02/26/20 05:32 Creatinine 0.62 mg/dL (0.5-1.4) 02/26/20 05:32 Estim Creat Clear Calc 92.6 02/26/20 05:32 Estimated GFR > 60 02/26/20 05:32 Random Glucose 94 mg/dL (60-115) 02/26/20 05:32 Lactic Acid 1.1 mmol/L (0.5-2.0) 02/26/20 12:13 Lactic Acid Fup @ 2Hr 3.9 mmol/L (0.5-2.0) H* 02/25/20 13:47 Lactic Acid Fup @ 4Hr 5.0 mmol/L (0.5-2.0) H* 02/25/20 16:37 Calcium 7.3 mg/dL (8.4-10.2) L D 02/26/20 05:32 Magnesium 1.7 mg/dL (1.6-2.6) 02/25/20 10:26 Ferritin 465 ng/mL (10-250) H 02/25/20 10:26 Total Bilirubin 1.8 mg/dL (0.0-1.0) H 02/26/20 05:32 Direct Bilirubin 0.7 mg/dL (0.0-0.5) H 02/26/20 05:32 AST 45 U/L (5-31) H 02/26/20 05:32 ALT 33 U/L (0-31) H 02/26/20 05:32 Alkaline Phosphatase 181 U/L (39-117) H D 02/26/20 05:32 Lactate Dehydrogenase 246 U/L (122-220) H 02/25/20 10:26 Total Creatine Kinase 63 U/L (26-140) 02/25/20 10:26 Troponin I High Sens 23.9 ng/L (<3.5-17.0) H 02/25/20 13:47 Total Protein 5.2 g/dL (6.5-8.0) L D 02/26/20 05:32 Albumin 2.8 g/dL (3.5-5.0) L 02/26/20 05:32 C. difficile Toxin A&B Negative (Negative) 02/26/20 17:45 C. difficile Antigen Negative (Negative) 02/26/20 17:45 C. difficile Interpret SEE NOTE 02/26/20 17:45 Coronavirus (PCR) NEGATIVE (Negative) 02/25/20 10:26 Influenza Type A (PCR) NEGATIVE (Negative) 02/25/20 10:26 Influenza Type B (PCR) NEGATIVE (Negative) 02/25/20 10:26 RSV RNA Qual (PCR) NEGATIVE (Negative) 02/25/20 10:26 Preliminary micro results at discharge 02/25/20 10:26 Blood Culture - Preliminary Blood - Venous No growth after 24 hours. 02/25/20 10:26 Blood Culture - Preliminary Blood - Venous No growth after 24 hours. Discharge Plan Discharge Anticipated Discharge Date/Time: 02/27/20 11:08 Patient Disposition: Home, Self-Care Referrals: Physician,Unknown [Primary Care Provider] - Discharge Medications: No Action No Known Home Meds RF: 0 Discharge Orders: Discharge Order (Routine); Ordered 02/27/20 Ordered By: Manuel Bhagat Diet: advance to usual diet Activity on Discharge: As tolerated Discharge Date/Time: 02/27/20 13:30 Visit Report Forms: Patient Portal Discharge page Care Plan Goals: Control of blood pressure and limit alcohol intake Health Concerns: alcohol dependence, fatty liver disease Plan of Treatment: Take blood pressure medication as ordered, go see your doctor, avoid alcohol
[2020-02-27 11:24] VITALS: BP 145/87; PULSE 89; RESP 17; TEMP 37; O2SAT 97
--- NOTE | 2020-02-27 12:34 | MHC.CARE ---
CARE Team met with Pt secondary to consult placed for alcohol dependence . Pt declined services or supports regarding her substance use. Pt interested therapy reporting anxiety symptoms though declined to elaborate to t/w. . Pt reports never being in therapy but feels it would be helpful to talk to someone. Pt gave t/w verbal permission to refer Pt to therapy at [facility]. CARE Team to refer Pt to [facility].
== END 2020-02-27 13:30 | disposition home or self-care (01) | DRG 442 ==
LOC: HO.ED 15:23 → HO.IMC 17:37
PROVIDERS: Physician Assistant Medical; Admitting Provider Internal Medicine; Emergency Provider Emergency Medicine; Visit Provider Internal Medicine
DX: K70.0 Alcoholic fatty liver (principal); E87.2 Acidosis; F10.230 Alcohol dependence with withdrawal, uncomplicated; I10 Essential (primary) hypertension; T46.4X6A Underdosing of angiotensin-converting-enzyme inhibitors, initial encounter; T44.7X6A Underdosing of beta-adrenoreceptor antagonists, initial encounter; Z91.128 Patient's intentional underdosing of medication regimen for other reason; Y92.9 Unspecified place or not applicable; F17.210 Nicotine dependence, cigarettes, uncomplicated; Z71.6 Tobacco abuse counseling; Z20.828 Contact with and (suspected) exposure to other viral communicable diseases
CPT/HCPCS: 0241U; 36415; 71045; 71250; 76700; 80048; 80076; 82550; 82728; 83605; 83615; 83735; 84484; 85025; 87040; 87324; 87449; 93005; 96361; 96372; 96374; 96375; 96376; 99285; 99291; J1650; J2060; J2405; J2560

== ENCOUNTER 2020-06-29 18:53 | Emergency (ER) | payer MEDICARE, SELFPAY ==
--- NOTE | ~2020-06-29 | XR_ITS ---
EXAMINATION: XR CHEST CLINICAL INFORMATION: Chest pain COMPARISON: 02/25/2020 TECHNIQUE: Frontal view of the chest was obtained. FINDINGS: Cardiac leads overlie the chest. The lungs are well expanded. There is no focal consolidation, edema, or effusion. No pneumothorax. The cardiomediastinal silhouette is within normal limits. No acute osseous abnormality. Soft tissue calcification adjacent to the right humeral greater tuberosity suggestive of calcific tendinosis of the rotator cuff. XR/XR chest 1V IMPRESSION: Clear lungs.
[2020-06-29 18:58] VITALS: BP 164/98; PULSE 114; O2SAT 99
[2020-06-29 19:03] VITALS: BP 168/125; PULSE 109; RESP 28; BMI 23.4
--- NOTE | 2020-06-29 19:03 | ECG_ITS ---
Test Reason : CP Blood Pressure : / mmHG Vent. Rate : 108 BPM Atrial Rate : 108 BPM P-R Int : 148 ms QRS Dur : 070 ms QT Int : 356 ms P-R-T Axes : 065 036 058 degrees QTc Int : 477 ms Sinus tachycardia Possible Left atrial enlargement Borderline ECG When compared with ECG of 25-FEB-2020 09:31, No significant change was found Referred By: Betsy Lopez Electronically Signed By:Chaim Savage
[2020-06-29 19:11] VITALS: PULSE 115
[2020-06-29] MEDS: ondansetron HCL 4 MG/2 ML VIAL IVPUSH (19:22)
[2020-06-29] MEDS: LORazepam 2 MG/ML VIAL IVPUSH (19:23)
[2020-06-29 19:24] LABS: MANUAL DIFF FLAG NO
[2020-06-29] MEDS: 0.9 % Sodium Chloride 1,000 ML 999 ML IVCONT ×2 (19:25→20:31)
[2020-06-29] MEDS: Magnesium Sulfate/H2O 2 GM/50 ML PIGGYBACK IV (19:25)
--- NOTE | 2020-06-29 19:28 | ED.NAVMDI ---
HPI - Nausea/Vomiting/Diarrhea General Chief complaint: Chest Pain Stated complaint: N/V/CP Time Seen by Provider: 06/29/20 18:57 Source: patient and old records reviewed Mode of arrival: ambulatory Limitations: no limitations Related Data Previous Rx's Medication Instructions Recorded amlodipine 5 mg PO DAILY #30 tab 06/30/20 chlordiazepoxide HCl See Rx Instructions .ROUTE 06/30/20 .COMPLEX PRN #30 cap famotidine [Pepcid] 20 mg PO DAILY PRN #30 tab 06/30/20 ondansetron 4 mg PO Q8H PRN #20 tab 06/30/20 Allergies Allergy/AdvReac Type Severity Reaction Status Date / Time Iodinated Contrast Media Allergy Mild RASH Verified 02/26/20 00:02 [CONTRAST, IV] DECONGESTIONS Allergy Unknown INCREASED Uncoded 11/27/19 16:37 HEART RATE PMFSH Past Medical History Medical History Cerebral aneurysm HTN (hypertension) Myocardial infarct Surgical History H/O craniotomy Social History Social History (Updated 02/25/20 @ 16:35 by LALITA Jordan) Household Members: Significant Other Housing: Apartment Alcohol intake: current Alcohol intake frequency: 3 or more drinks per day Alcohol type: hard liquor Smoking Status: Current every day smoker Smoked in Last 30 Days: Yes Use of substances other than those prescribed or required for medical reasons: Yes Substance Use Type: Marijuana Advance Directives: No Advance Directives Information Provided: Yes service: No Current occupational status: unemployed Physical Exam Vital Signs: Vital Signs: Last Vital Signs Pulse 103 H 06/30/20 01:02 Resp 23 H 06/30/20 00:58 BP 186/111 H 06/30/20 01:02 Pulse Ox 98 06/30/20 00:58 Body Mass Index 23.4 Appearance: Alert. Oriented X3. Anxious hyperventilating moderate acute distress. Eyes: Pupils equal, round and reactive to light. ENT: Pharynx moderate dry MMM Neck: Normal inspection. Neck supple. CVS: tachycardic heart rate and rhythm. Pulses normal. Respiratory: No respiratory distress. Breath sounds normal. Abdomen: Soft and nontender. Skin: Skin warm and dry. Normal skin color. Normal skin turgor. Extremities: No lower extremity edema. No calf ttp Carpopedal spasms Neuro: Oriented X 3. No motor deficit. No sensory deficit. Course Course Course Narrative: PO potassium and IV 20meq ordered, PO librium anticipate if she is improved she can be DC home VS improved, EKG and troponin negative patient able to tolerate PO HTN suspect she is not compliant with her medications has been on norvasc in past will start amlodipine 5mg overall the patient states she is feeling much better and likely can manage at home MDM - Nausea/Vomiting/Diarrhea MDM Narrative Medical decision making narrative: 49 yo female with hx of HTN, ETOH abuse seen in February for ETOH withdrawal, n/v and lactic acidosis comes in with c/o anxiety, palpitations, vomiting all day, last drink yesterday, states her arms are tingling and she feels they are spasming - suspect anxiety and ETOH withdrawal at this time the patient will need labs, IVF x 2L, IV ativan 2mg, troponin x 1, EKG, suspect ETOH withdrawal and anxiety Lab Data Result diagrams: 06/29/20 19:20 06/29/20 20:28 Labs: Lab Results 06/29/20 06/29/20 06/29/20 Range/Units 19:20 19:20 19:20 WBC 17.5 H (4.8-10.8) X10*3/uL RBC 5.15 D (4.20-5.50) X10*6/uL Hgb 17.7 H D (12.0-16.0) g/dl Hct 50.9 H D (37-47) % MCV 98.8 H (80-98) fL MCH 34.4 H (27.0-33.0) pg MCHC 34.8 (31.0-35.0) g/dl RDW 13.2 (11.0-16.0) % Plt Count 325 D (160-400) X10*3/uL MPV 9.9 (9.4-12.3) fL Immature Gran % (Auto) 0.5 H (0.0-0.4) % Neut % (Auto) 81.9 H (45-73) % Lymph % (Auto) 11.4 L (20-40) % [place] % (Auto) 5.8 (2-11) % Eos % (Auto) 0.2 (0-4) % Baso % (Auto) 0.2 (0-2) % Lymph # (Auto) 2.0 (1.2-4.9) X10*3/uL [place] # (Auto) 1.0 (0.1-1.2) X10*3/uL Eos # (Auto) 0.0 (0.0-0.4) X10*3/uL Baso # (Auto) 0.0 (0.0-0.2) X10*3/uL Abs Immat Gran (auto) 0.09 H (0.00-0.03) X10*3/uL Absolute Neuts (auto) 14.3 H (2.0-8.3) X10*3/uL Absolute Nucleated RBC 0.000 (0.0-0.012) X10*3/uL Nucleated RBC % (auto) 0.0 (0.0-0.2) /100WBC Hold Blue Top SEE NOTE Sodium (135-145) mmol/L Potassium (3.3-5.1) mmol/L Chloride (96-108) mmol/L Carbon Dioxide (22-29) mmol/L Anion Gap (12-20) BUN (9-16) mg/dL Creatinine (0.5-1.4) mg/dL Estim Creat Clear Calc Estimated GFR Random Glucose (60-115) mg/dL Calcium (8.4-10.2) mg/dL Magnesium (1.6-2.6) mg/dL Total Bilirubin (0.0-1.0) mg/dL Direct Bilirubin (0.0-0.5) mg/dL AST (5-31) U/L ALT (0-31) U/L Alkaline Phosphatase (39-117) U/L Troponin I High Sens (<3.5-17.0) ng/L Total Protein (6.5-8.0) g/dL Albumin (3.5-5.0) g/dL Lipase (8-78) U/L Ethyl Alcohol mg/dL COVID-19 (ELIN) Negative (Negative) COVID-19 Clin Com See Note 06/29/20 06/29/20 06/29/20 Range/Units 19:20 20:28 20:28 WBC (4.8-10.8) X10*3/uL RBC (4.20-5.50) X10*6/uL Hgb (12.0-16.0) g/dl Hct (37-47) % MCV (80-98) fL MCH (27.0-33.0) pg MCHC (31.0-35.0) g/dl RDW (11.0-16.0) % Plt Count (160-400) X10*3/uL MPV (9.4-12.3) fL Immature Gran % (Auto) (0.0-0.4) % Neut % (Auto) (45-73) % Lymph % (Auto) (20-40) % [place] % (Auto) (2-11) % Eos % (Auto) (0-4) % Baso % (Auto) (0-2) % Lymph # (Auto) (1.2-4.9) X10*3/uL [place] # (Auto) (0.1-1.2) X10*3/uL Eos # (Auto) (0.0-0.4) X10*3/uL Baso # (Auto) (0.0-0.2) X10*3/uL Abs Immat Gran (auto) (0.00-0.03) X10*3/uL Absolute Neuts (auto) (2.0-8.3) X10*3/uL Absolute Nucleated RBC (0.0-0.012) X10*3/uL Nucleated RBC % (auto) (0.0-0.2) /100WBC Hold Blue Top Sodium 139 (135-145) mmol/L Potassium 2.7 L (3.3-5.1) mmol/L Chloride 100 (96-108) mmol/L Carbon Dioxide 27 (22-29) mmol/L Anion Gap 15 (12-20) BUN 6 L D (9-16) mg/dL Creatinine 0.70 (0.5-1.4) mg/dL Estim Creat Clear Calc 69.8 Estimated GFR > 60 Random Glucose 118 H (60-115) mg/dL Calcium 8.7 D (8.4-10.2) mg/dL Magnesium (1.6-2.6) mg/dL Total Bilirubin 1.0 (0.0-1.0) mg/dL Direct Bilirubin 0.4 (0.0-0.5) mg/dL AST 30 (5-31) U/L ALT 24 (0-31) U/L Alkaline Phosphatase 101 D (39-117) U/L Troponin I High Sens < 3.5 D (<3.5-17.0) ng/L Total Protein 6.6 D (6.5-8.0) g/dL Albumin 3.7 D (3.5-5.0) g/dL Lipase 10 (8-78) U/L Ethyl Alcohol < 10 mg/dL COVID-19 (ELIN) (Negative) COVID-19 Clin Com 06/29/20 Range/Units 20:28 WBC (4.8-10.8) X10*3/uL RBC (4.20-5.50) X10*6/uL Hgb (12.0-16.0) g/dl Hct (37-47) % MCV (80-98) fL MCH (27.0-33.0) pg MCHC (31.0-35.0) g/dl RDW (11.0-16.0) % Plt Count (160-400) X10*3/uL MPV (9.4-12.3) fL Immature Gran % (Auto) (0.0-0.4) % Neut % (Auto) (45-73) % Lymph % (Auto) (20-40) % [place] % (Auto) (2-11) % Eos % (Auto) (0-4) % Baso % (Auto) (0-2) % Lymph # (Auto) (1.2-4.9) X10*3/uL [place] # (Auto) (0.1-1.2) X10*3/uL Eos # (Auto) (0.0-0.4) X10*3/uL Baso # (Auto) (0.0-0.2) X10*3/uL Abs Immat Gran (auto) (0.00-0.03) X10*3/uL Absolute Neuts (auto) (2.0-8.3) X10*3/uL Absolute Nucleated RBC (0.0-0.012) X10*3/uL Nucleated RBC % (auto) (0.0-0.2) /100WBC Hold Blue Top Sodium (135-145) mmol/L Potassium (3.3-5.1) mmol/L Chloride (96-108) mmol/L Carbon Dioxide (22-29) mmol/L Anion Gap (12-20) BUN (9-16) mg/dL Creatinine (0.5-1.4) mg/dL Estim Creat Clear Calc Estimated GFR Random Glucose (60-115) mg/dL Calcium (8.4-10.2) mg/dL Magnesium 1.9 (1.6-2.6) mg/dL Total Bilirubin (0.0-1.0) mg/dL Direct Bilirubin (0.0-0.5) mg/dL AST (5-31) U/L ALT (0-31) U/L Alkaline Phosphatase (39-117) U/L Troponin I High Sens (<3.5-17.0) ng/L Total Protein (6.5-8.0) g/dL Albumin (3.5-5.0) g/dL Lipase (8-78) U/L Ethyl Alcohol mg/dL COVID-19 (ELIN) (Negative) COVID-19 Clin Com ECG Data Attestation: I personally reviewed and interpreted this ECG as follows: ECG interpretation date: 06/29/20 ECG interpretation time: 19:37 Interpretation: Rate: 108 Rhythm: sinus tachycardia [place]: normal Normal P waves. Normal WAQAR. Normal QRS complex. ST T wave : normal no AILYN qTC: normal prior studies: no acute ischemia The study has been interpreted contemporaneously by me. . Critical Care Time Critical Care Time Critical Care Time: Yes Total Critical Care Time: 30 Attestation: 2L of IVF, 2 of IV ativan, K repletion I attest to this time spent taking care of the patient Discharge Plan Discharge Clinical Impression: Atypical chest pain, Anxiety, Acute hypokalemia HTN (hypertension) Qualifiers: Hypertension type: essential hypertension Qualified Code(s): I10 - Essential (primary) hypertension Vomiting Qualifiers: Vomiting type: unspecified Vomiting Intractability: non-intractable Nausea presence: with nausea Qualified Code(s): R11.2 - Nausea with vomiting, unspecified Patient Disposition: Home, Self-Care Instructions: Hypokalemia (ED), Abuse of Alcohol (ED), Acute Nausea and Vomiting (ED), Chronic Hypertension (ED) Additional Instructions: return to ED for any worsening symptoms or concerns Prescriptions: New famotidine [Pepcid] 20 mg tablet 20 mg PO DAILY PRN (Reason: abdominal discomfort) Qty: 30 RF: 0 ondansetron 4 mg tablet,disintegrating 4 mg PO Q8H PRN (Reason: nausea and vomiting) Qty: 20 RF: 0 amlodipine 5 mg tablet 5 mg PO DAILY Qty: 30 RF: 1 chlordiazepoxide HCl 25 mg capsule See Rx Instructions .ROUTE .COMPLEX PRN (Reason: alcohol withdrawal) Qty: 30 RF: 0 Referrals: Physician,Unknown [Primary Care Provider] - 2 days Stand Alone Forms: Work/School Release
[2020-06-29 19:30] LABS: Basophils Percent Auto 0.2 % (0-2); Eosinophils Percent Auto 0.2 % (0-4); Hematocrit 50.9 % (37-47); Hemoglobin 17.7 g/dl (12.0-16.0); Imm Gran Abs Auto 0.09 X10*3/uL (0.00-0.03); Imm Gran Pct Auto 0.5 % (0.0-0.4); Lymphocytes Percent Auto 11.4 % (20-40); Mean Corpuscular HGB Conc 34.8 g/dl (31.0-35.0); Mean Corpuscular Hemoglobin 34.4 pg (27.0-33.0); Mean Corpuscular Volume 98.8 fL (80-98); Mean Platelet Volume 9.9 fL (9.4-12.3); Monocytes Percent Auto 5.8 % (2-11); Neutrophils Absolute Auto 14.3 X10*3/uL (2.0-8.3); Neutrophils Percent Auto 81.9 % (45-73); Platelet Count 325 X10*3/uL (160-400); Red Blood Count 5.15 X10*6/uL (4.20-5.50); Red Cell Distribution Width 13.2 % (11.0-16.0); White Blood Count 17.5 X10*3/uL (4.8-10.8)
[2020-06-29 19:43] LABS: COVID-19 Test Negative (Negative)
[2020-06-29 20:06] LABS: Troponin-I High Sensitivity < 3.5 ng/L (<3.5-17.0)
[2020-06-29 21:15] LABS: Ethanol < 10 mg/dL
[2020-06-29 21:18] LABS: Magnesium 1.9 mg/dL (1.6-2.6)
[2020-06-29 21:34] LABS: Alanine Aminotransferase 24 U/L (0-31); Albumin Level 3.7 g/dL (3.5-5.0); Alkaline Phosphatase 101 U/L (39-117); Anion Gap 15 (12-20); Aspartate Amino Transferase 30 U/L (5-31); Bilirubin Direct 0.4 mg/dL (0.0-0.5); Blood Urea Nitrogen 6 mg/dL (9-16); Calcium 8.7 mg/dL (8.4-10.2); Carbon Dioxide 27 mmol/L (22-29); Chloride 100 mmol/L (96-108); Creatinine Clr Calc Pharmacy 69.8; Estimated Glomerular Filt Rate > 60; Glucose Random 118 mg/dL (60-115); Lipase 10 U/L (8-78); Potassium 2.7 mmol/L (3.3-5.1); Sodium 139 mmol/L (135-145); Total Protein 6.6 g/dL (6.5-8.0)
[2020-06-29 22:05] VITALS: BP 151/82; PULSE 107; RESP 15; O2SAT 100
[2020-06-29] MEDS: Potassium Chloride ER 20 MEQ TAB.ER.PRT 40 MEQ PO (22:15)
[2020-06-29] MEDS: chlordiazePOXIDE HCl 25 MG CAPSULE 50 MG PO (22:16)
[2020-06-29] MEDS: Potassium Chloride/H20 10 MEQ/100 ML PIGGYBACK 100 MEQ IV ×2 (22:18→23:40)
[2020-06-30 00:58] VITALS: BP 186/111; PULSE 89; RESP 23; O2SAT 98
[2020-06-30 01:02] VITALS: BP 186/111; PULSE 103
[2020-06-30] MEDS: amLODIPine Besylate 5 MG TABLET PO (01:02)
--- NOTE | 2020-06-30 01:26 | PC.NURSE ---
1L ns infusing now. Unable to scan meds due to pharmacy not verifying.
[2020-06-30] MEDS: 0.9 % Sodium Chloride 1,000 ML 999 ML IVCONT (01:30)
== END 2020-06-30 03:14 | disposition home or self-care (01) ==
PROVIDERS: Emergency Provider Emergency Medicine
DX: R07.89 Other chest pain (principal); F41.9 Anxiety disorder, unspecified; E87.6 Hypokalemia; I10 Essential (primary) hypertension; F10.10 Alcohol abuse, uncomplicated; Y90.0 Blood alcohol level of less than 20 mg/100 ml; R11.2 Nausea with vomiting, unspecified; Z20.822 Contact with and (suspected) exposure to COVID-19; I25.2 Old myocardial infarction; F17.200 Nicotine dependence, unspecified, uncomplicated; F12.90 Cannabis use, unspecified, uncomplicated
CPT/HCPCS: 36415; 71045; 80048; 80076; 80320; 83690; 83735; 84484; 85025; 87635; 93005; 96361; 96365; 96375; 99285; 99291; J2060; J2405; J3475

== ENCOUNTER 2021-02-04 12:19 | Emergency (ER) | payer MEDICARE, SELFPAY ==
[2021-02-04] VITALS (11 sets, daily range): BP systolic 112–225; BP diastolic 74–125; PULSE 64–95; RESP 18–19; TEMP 36.6–36.7; O2SAT 97–100; BMI 23.4
--- NOTE | ~2021-02-04 | XR_ITS ---
EXAMINATION: XR CHEST CLINICAL INFORMATION: Chest pain. COMPARISON: None TECHNIQUE: Frontal view of the chest was obtained. FINDINGS: No significant abnormality is noted involving the heart, lungs, mediastinum, bony thorax or soft tissues. XR/XR chest 1V IMPRESSION: Unremarkable chest examination.
--- NOTE | 2021-02-04 12:30 | ECG_ITS ---
Test Reason : CHEST PAIN Blood Pressure : / mmHG Vent. Rate : 075 BPM Atrial Rate : 075 BPM P-R Int : 132 ms QRS Dur : 076 ms QT Int : 398 ms P-R-T Axes : 063 029 045 degrees QTc Int : 444 ms Normal sinus rhythm Possible Left atrial enlargement Nonspecific ST abnormality Lateral leads Abnormal ECG When compared with ECG of 29-JUN-2020 19:09, Heart rate has decreased Referred By: Jan Yap Electronically Signed By:MINERVA VALDES MD
[2021-02-04 12:51] LABS: MANUAL DIFF FLAG NO
[2021-02-04 12:52] LABS: Basophils Percent Auto 0.2 % (0-2); Eosinophils Absolute Auto 0.1 X10*3/uL (0.0-0.4); Eosinophils Percent Auto 0.6 % (0-4); Hematocrit 48.2 % (37.0-47.0); Hemoglobin 17.4 g/dl (12.0-16.0); Imm Gran Abs Auto 0.06 X10*3/uL (0.00-0.03); Imm Gran Pct Auto 0.4 % (0.0-0.4); Lymphocytes Absolute Auto 2.3 X10*3/uL (1.2-4.9); Lymphocytes Percent Auto 14.3 % (20-40); Mean Corpuscular HGB Conc 36.1 g/dl (31.0-35.0); Mean Corpuscular Hemoglobin 36.3 pg (27.0-33.0); Mean Corpuscular Volume 100.6 fL (80.0-98.0); Mean Platelet Volume 9.7 fL (9.4-12.3); Monocytes Percent Auto 6.2 % (2-11); Neutrophils Absolute Auto 12.4 x10*3/uL (2.0-8.3); Neutrophils Percent Auto 78.3 % (45-73); Platelet Count 290 X10*3/uL (160-400); Red Blood Count 4.79 X10*6/uL (4.20-5.50); White Blood Count 15.9 X10*3/uL (4.8-10.8)
[2021-02-04] MEDS: ondansetron HCL 4 MG/2 ML VIAL IVPUSH (12:54)
[2021-02-04] MEDS: Morphine Sulfate 2 MG/ML CARTRIDGE IVPUSH (12:54)
[2021-02-04] MEDS: LORazepam 2 MG/ML VIAL IVPUSH (12:54)
[2021-02-04 12:57] LABS: Prothrombin Time 11.1 SEC (9.9-13.0)
[2021-02-04] MEDS: Metoprolol Tartrate 50 MG TABLET PO (12:58)
[2021-02-04 13:00] LABS: Partial Thromboplastin Time 27.3 SEC (24.1-38.0)
[2021-02-04] MEDS: Magnesium Sulfate/H2O 2 GM/50 ML PIGGYBACK IV (13:03)
[2021-02-04 13:12] LABS: Alanine Aminotransferase 24 U/L (0-31); Albumin Level 4.4 g/dL (3.5-5.0); Alkaline Phosphatase 115 U/L (39-117); Anion Gap 17 (12-20); Aspartate Amino Transferase 26 U/L (5-31); Bilirubin Total 1.2 mg/dL (0.0-1.0); Blood Urea Nitrogen 9 mg/dL (9-16); Calcium 9.6 mg/dL (8.4-10.2); Carbon Dioxide 28 mmol/L (22-29); Chloride 92 mmol/L (96-108); Creatinine Clr Calc Pharmacy 57.5; Estimated Glomerular Filt Rate > 60; Glucose Random 102 mg/dL (60-115); Potassium 2.9 mmol/L (3.3-5.1); Sodium 134 mmol/L (135-145); Total Protein 7.8 g/dL (6.5-8.0)
[2021-02-04 13:14] LABS: B Type Natriuretic Peptide < 10 pg/mL (<100); Troponin-I High Sensitivity 4.4 ng/L (<3.5-17.0)
--- NOTE | 2021-02-04 13:19 | ED_ITS ---
HPI - General Adult General Chief complaint: General Medical Stated complaint: chest pressure/htn Time Seen by Provider: 02/04/21 12:30 Source: patient Mode of arrival: ambulatory Limitations: no limitations History of Present Illness HPI narrative: Reticular female with past medical history of alcohol abuse presents to ED for nausea and vomiting for the past 4 days and this morning woke up with chest pain. Patient denies any recent drug use. Patient denies any shortness of breath, swelling of lower extremities, or calf pain. Patient seen here twice for similar presentation of frontal have severe alcohol withdrawal. Patient was given aspirin during ED visit. Patient was not given a nitro. Patient states also feeling very anxious. and tremors Related Data Previous Rx's Medication Instructions Recorded potassium chloride 10 mEq 10 meq PO DAILY #3 cap 02/04/21 capsule,extended release Allergies Allergy/AdvReac Type Severity Reaction Status Date / Time Iodinated Contrast Media Allergy Mild RASH Verified 02/26/20 00:02 [CONTRAST, IV] DECONGESTIONS Allergy Unknown INCREASED Uncoded 11/27/19 16:37 HEART RATE Review of Systems Review of Systems: Yes all other systems are reviewed and are negative Constitutional: Constitutional: Reports as per HPI and Reports no additional constitutional complaints Eyes: Eyes: Reports as per HPI and Reports no additional eye complaints ENT: Reports system reviewed and no additional complaints, except as documented, Reports as per HPI and Reports Normal hearing present Cardiovascular: Cardiovascular: Reports as per HPI, Reports no additional cardiovascular complaints and Reports chest pain at rest Respiratory: Respiratory: Reports as per HPI and Reports no additional respiratory complaints Gastrointestinal: Gastrointestinal: Reports as per HPI, Reports no additional gastrointestinal complaints, Reports nausea and Reports vomiting Genitourinary: Genitourinary: Reports no additional female genitourinary compl aints and Reports as per HPI Musculoskeletal: Musculoskeletal: Reports no additional musculoskeletal complaints and Reports as per HPI Integumentary/Breasts: Skin/Breast: Reports system reviewed and no additional complaints, except as docu and Reports as per HPI Neurologic: Reports system reviewed and no additional complaints, except as documented, Reports as per HPI, Reports Normal hearing present and Denies confusion Psychiatric: Psychiatric: Reports no additional psychiatric complaints, Reports as per HPI and Denies confusion [facility] Past Medical History Medical History (Updated 02/04/21 @ 17:28 by LALITA Cabrera) Cerebral aneurysm HTN (hypertension) Myocardial infarct Surgical History (Updated 02/04/21 @ 12:34 by Ernie Field) H/O craniotomy H/O heart artery stent Social History Social History (Updated 02/25/20 @ 16:35 by LALITA Jordan) Household Members: Significant Other Housing: Apartment Alcohol intake: current Alcohol intake frequency: former alcohol drinker Alcohol type: hard liquor Patient Tobacco Use Status: Current everyday Tobacco user Use of substances other than those prescribed or required for medical reasons: No Substance Use Type: Marijuana Advance Directives: No Advance Directives Information Provided: Yes Patient : No service: No Current occupational status: unemployed Physical Exam Vital Signs: Vital Signs: Last Vital Signs Temp 98.1 F 02/04/21 15:49 Pulse 74 02/04/21 16:38 Resp 18 02/04/21 15:49 BP 112/74 02/04/21 16:38 Pulse Ox 97 02/04/21 15:49 Body Mass Index 23.4 Const: General: cooperative, healthy appearing, comfortable, no acute distress, well developed, alert and awake; No Physically active, acute distress, in distress, anxious, combative, confusion, Cushingoid facies, diaphoretic, ill appearing, intoxicated appearing, lethargic, patient obtunded, poor hygiene, tired appearing or well groomed Orientation/consciousness: oriented to person, oriented to place, oriented to time, patient oriented x3, No confusion, No patient obtunded and No lethargic HENMT: Head: Yes normal to inspection, Yes No palpable skull fracture present, Yes normocephalic, Yes atraumatic, Yes abrasion, No Acrocyanosis present and No raccoon eyes Eyes: General: appearance normal, both eyes and all related structures Pupils: Equal, round and reactive pupils present Neck: Neck: Yes no meningeal signs Resp: Effort & Inspection: normal respiratory effort and able to speak in complete sentences Auscultation: clear to auscultation bilaterally Cardio: Jugular venous distension: no JVD Heart sounds: S1 normal heart sound present and S2 normal heart sound present GI: Inspection: Yes normal to inspection and No abdominal wall ecchymosis Palpation (GI): Soft to palpation, not firm, nontender, no guarding and not rigid : General: Yes CVA tenderness and Yes no CVA tenderness Back/Spine/Pelvis: Back: no CVA tenderness, CVA tenderness and No back tenderness Skin: General skin exam: no rashes or lesions noted and elasticity normal Neuro: General: oriented to person, oriented to place, oriented to time, patient oriented x3, gait normal, moves all extremities, Normal light touch and pain sensation, no meningeal signs, no focal motor deficits, CN's II-XI intact b ilaterally, normal sensation to monofilament, No confusion and No patient obtunded Cranial nerves: Yes CN's II-XII intact bilaterally, Yes Facial sensation intact/muscles of mastication intact, Yes Intact sense of smell present, Yes Equal, round and reactive pupils present, Yes Normal accommodation reflex present, Yes Bilaterally intact EOM present, Yes Nystagmus not present, Yes Normal facial strength present, Yes Midline tongue present, Yes Normal gag reflex present, Yes Symmetric palate elevation present and Yes Normal hearing present Extrem: Other: Lower extremity negative for swelling, pitting edema, or calf tenderness General: Yes normal to inspection and Yes full ROM Psych: Appearance: grossly normal, well kempt and not disheveled Course Course Course Narrative: Charts reviewed and case discussed with Dr. Lopez with similar give patient states patient most likely having another alcohol withdrawal presentation and given Ativan but still do cardiac evaluation. Also recommend given magnesium for history of chronic magnesium. Also given Zofran and metoprolol p.o. for blood pressure. Patient denies any history of cocaine/heroin use. Reevaluation(s) Reevaluation #1: EKG negative STEMI. Patient presently sleeping in bed and not in any distress. Patient no longer having chest pain Still hypertensive. Will give blood pressure medication. may need to start phenobarbital for alcohol withdrawal. Reevaluation #2: Pressure systolic 183 and diastolic 101. Patient presently has no chest pain. Will add labetalol. Will do 2nd troponin Reevaluation #3: Blood pressure improving. On re-evaluation patient states last drink was last weekend ( 4 days ago) and and she usually drinks 5 nips of vodka per day. Spoke with [facility] LALITA Hdez for admission. Presently no phenobarb ordered or indicated. Patient no longer feeling anxious or tremors. Time: 15:55 Additional Reevaluation(s): Spoke with Dr. sahu hospitalist who came to evaluate patient. Case was discussed with him and he thinks patient could be discharged. Patient presently blood pressure improved and does not need phenobarbital. Patient no longer hypertensive and not feeling anxious. No longer having tremors. States patient could be discharged with potassium. In review of notes that showed patient presents to the ED with similar presentations and was discharged. No need for head CT scan neuro exam is negative for any deficits. NIH score 0 Patient's spoke with cricket coach [employer] and was given resources for outpatient detox program. Patient informed to be compliant with her medications. Medical Decision Making MDM Narrative Medical decision making narrative: Alcohol withdrawal and hypokalemia Lab Data Result diagrams: 02/04/21 12:47 02/04/21 12:47 Labs: Lab Results 02/04/21 02/04/21 02/04/21 Range/Units 12:47 12:47 12:47 WBC 15.9 H (4.8-10.8) X10*3/uL RBC 4.79 (4.20-5.50) X10*6/uL Hgb 17.4 H (12.0-16.0) g/dl Hct 48.2 H (37.0-47.0) % MCV 100.6 H (80.0-98.0) fL MCH 36.3 H (27.0-33.0) pg MCHC 36.1 H (31.0-35.0) g/dl RDW 13.0 (11.0-16.0) % Plt Count 290 (160-400) X10*3/uL MPV 9.7 (9.4-12.3) fL Immature Gran % (Auto) 0.4 (0.0-0.4) % Neut % (Auto) 78.3 H (45-73) % Lymph % (Auto) 14.3 L (20-40) % [place] % (Auto) 6.2 (2-11) % Eos % (Auto) 0.6 (0-4) % Baso % (Auto) 0.2 (0-2) % Lymph # (Auto) 2.3 (1.2-4.9) X10*3/uL [place] # (Auto) 1.0 (0.1-1.2) X10*3/uL Eos # (Auto) 0.1 (0.0-0.4) X10*3/uL Baso # (Auto) 0.0 (0.0-0.2) X10*3/uL Abs Immat Gran (auto) 0.06 H (0.00-0.03) X10*3/uL Absolute Neuts (auto) 12.4 H (2.0-8.3) x10*3/uL Absolute Nucleated RBC 0.000 (0.0-0.012) X10*3/uL Nucleated RBC % (auto) 0.0 (0.0-0.2) /100WBC PT 11.1 (9.9-13.0) SEC INR 1.0 (0.9-1.1) APTT 27.3 (24.1-38.0) SEC Sodium 134 L (135-145) mmol/L Potassium 2.9 L (3.3-5.1) mmol/L Chloride 92 L (96-108) mmol/L Carbon Dioxide 28 (22-29) mmol/L Anion Gap 17 (12-20) BUN 9 (9-16) mg/dL Creatinine 0.84 (0.5-1.4) mg/dL Estim Creat Clear Calc 57.5 Estimated GFR > 60 Random Glucose 102 (60-115) mg/dL Calcium 9.6 D (8.4-10.2) mg/dL Magnesium 2.0 (1.6-2.6) mg/dL Total Bilirubin 1.2 H (0.0-1.0) mg/dL AST 26 (5-31) U/L ALT 24 (0-31) U/L Alkaline Phosphatase 115 (39-117) U/L Troponin I High Sens (<3.5-17.0) ng/L B-Natriuretic Peptide (<100) pg/mL Total Protein 7.8 (6.5-8.0) g/dL Albumin 4.4 (3.5-5.0) g/dL Lipase 11 (8-78) U/L COVID-19 (ELIN) (Negative) COVID-19 Clin Com 02/04/21 02/04/21 02/04/21 Range/Units 12:47 15:48 15:48 WBC (4.8-10.8) X10*3/uL RBC (4.20-5.50) X10*6/uL Hgb (12.0-16.0) g/dl Hct (37.0-47.0) % MCV (80.0-98.0) fL MCH (27.0-33.0) pg MCHC (31.0-35.0) g/dl RDW (11.0-16.0) % Plt Count (160-400) X10*3/uL MPV (9.4-12.3) fL Immature Gran % (Auto) (0.0-0.4) % Neut % (Auto) (45-73) % Lymph % (Auto) (20-40) % [place] % (Auto) (2-11) % Eos % (Auto) (0-4) % Baso % (Auto) (0-2) % Lymph # (Auto) (1.2-4.9) X10*3/uL [place] # (Auto) (0.1-1.2) X10*3/uL Eos # (Auto) (0.0-0.4) X10*3/uL Baso # (Auto) (0.0-0.2) X10*3/uL Abs Immat Gran (auto) (0.00-0.03) X10*3/uL Absolute Neuts (auto) (2.0-8.3) x10*3/uL Absolute Nucleated RBC (0.0-0.012) X10*3/uL Nucleated RBC % (auto) (0.0-0.2) /100WBC PT (9.9-13.0) SEC INR (0.9-1.1) APTT (24.1-38.0) SEC Sodium (135-145) mmol/L Potassium (3.3-5.1) mmol/L Chloride (96-108) mmol/L Carbon Dioxide (22-29) mmol/L Anion Gap (12-20) BUN (9-16) mg/dL Creatinine (0.5-1.4) mg/dL Estim Creat Clear Calc Estimated GFR Random Glucose (60-115) mg/dL Calcium (8.4-10.2) mg/dL Magnesium (1.6-2.6) mg/dL Total Bilirubin (0.0-1.0) mg/dL AST (5-31) U/L ALT (0-31) U/L Alkaline Phosphatase (39-117) U/L Troponin I High Sens 4.4 5.5 (<3.5-17.0) ng/L B-Natriuretic Peptide < 10 (<100) pg/mL Total Protein (6.5-8.0) g/dL Albumin (3.5-5.0) g/dL Lipase (8-78) U/L COVID-19 (ELIN) Negative (Negative) COVID-19 Clin Com See Note ECG Data Interpretation: Normal sinus rhythm. Ventricular rate 75. Pr interval 132. Caris 76. QTC 444. Negative STEMI Discharge Plan Discharge Clinical Impression: HTN (hypertension), Alcohol withdrawal, Hypokalemia Patient Disposition: Home, Self-Care Instructions: Hypokalemia (ED), Alcohol Withdrawal (ED), Hypertension (ED) Additional Instructions: Your EKG and blood work does not indicate heart attack. Chest x-ray normal. COVID swab negative. The blood pressure improved. Return to the ED for any tremors, abdominal pain, nausea, vomiting, severe chest pain, shortness of breath, calf pain, coughing up blood, shortness of breath on exertion, chest pain on exertion, chest pain on deep inspiration, speech, facial droop, loss of vision, paralysis of extremities, or any other concerning symptoms. Please follow-up with referrals given to her by women's soccer coach for detox program. Prescriptions: New potassium chloride 10 mEq capsule, extended release 10 meq PO DAILY Qty: 3 RF: 0 Interventions: ED Discharge Assessment Last Done: 02/04/21 17:52 Discharge Date/Time: 02/04/21 17:53 Print Language: Filipino
[2021-02-04 13:45] LABS: Lipase 11 U/L (8-78)
[2021-02-04] MEDS: cloNIDine HCL 0.2 MG TABLET PO (14:01)
[2021-02-04] MEDS: Potassium Chloride Packet 20 MEQ PACKET 40 MEQ PO (14:01)
[2021-02-04] MEDS: 0.9 % Sodium Chloride 1,000 ML 999 ML IV (14:02)
--- NOTE | 2021-02-04 14:47 | PC.NURSE ---
pt alert and oriented, skin pwd, respirations even and unlabored, pt reports feeling lousy, upper back pain, some nausea and chest heaviness ns on the monitor, but still hypertensive
[2021-02-04 16:15] LABS: Troponin-I High Sensitivity 5.5 ng/L (<3.5-17.0)
[2021-02-04 16:21] LABS: COVID-19 Test Negative (Negative); IDNOW Serial# 9DD0AD1C
== END 2021-02-04 17:53 | disposition home or self-care (01) ==
PROVIDERS: Physician Assistant; Emergency Provider Emergency Medicine
DX: E87.6 Hypokalemia (principal); F10.130 Alcohol abuse with withdrawal, uncomplicated; Y90.9 Presence of alcohol in blood, level not specified; I10 Essential (primary) hypertension; Z20.822 Contact with and (suspected) exposure to COVID-19; R11.2 Nausea with vomiting, unspecified; F41.9 Anxiety disorder, unspecified; I25.2 Old myocardial infarction; F17.200 Nicotine dependence, unspecified, uncomplicated
CPT/HCPCS: 36415; 71045; 80053; 83690; 83735; 83880; 84484; 85025; 85610; 85730; 87635; 93005; 96365; 96366; 96375; 99284; J2060; J2270; J2405; J3475

== ENCOUNTER 2021-10-12 02:57 | Emergency (ER) | payer MEDICARE, MEDICAID, SELFPAY ==
--- NOTE | ~2021-10-12 | XR_ITS ---
EXAMINATION: XR CHEST CLINICAL INFORMATION: Chest pain COMPARISON: 02/04/2021 TECHNIQUE: Portable AP view FINDINGS: Normal symmetric lung volumes. No parenchymal consolidation. No pleural effusion. No pneumothorax. Cardiomediastinal silhouette and pulmonary vascularity are within normal limits. No acute osseous abnormalities. XR/XR chest 1V IMPRESSION: No acute pulmonary findings.
[2021-10-12 03:01] VITALS: BP 141/88; BP 146/94; PULSE 81; PULSE 86; RESP 16; O2SAT 97; BMI 26.4
--- NOTE | 2021-10-12 03:01 | ECG_ITS ---
Test Reason : CHEST PAIN Blood Pressure : / mmHG Vent. Rate : 075 BPM Atrial Rate : 075 BPM P-R Int : 128 ms QRS Dur : 070 ms QT Int : 386 ms P-R-T Axes : 067 035 050 degrees QTc Int : 431 ms Normal sinus rhythm Normal ECG No previous ECGs available Referred By: Zamzam Espinal Electronically Signed By:KASSANDRA SUN MD
--- NOTE | 2021-10-12 03:16 | PC.NURSE ---
IV established, labs, EKG and CXR obtained. at bedside for primary eval.
[2021-10-12 03:19] LABS: Basophils Percent Auto 0.3 % (0-2); Eosinophils Absolute Auto 0.4 X10*3/uL (0.0-0.4); Eosinophils Percent Auto 4.1 % (0-4); Hematocrit 41.8 % (37.0-47.0); Hemoglobin 14.7 g/dl (12.0-16.0); Imm Gran Abs Auto 0.06 X10*3/uL (0.00-0.03); Imm Gran Pct Auto 0.6 % (0.0-0.4); Lymphocytes Absolute Auto 2.6 X10*3/uL (1.2-4.9); Lymphocytes Percent Auto 24.3 % (20-40); MANUAL DIFF FLAG NO; Mean Corpuscular HGB Conc 35.2 g/dl (31.0-35.0); Mean Corpuscular Hemoglobin 34.4 pg (27.0-33.0); Mean Corpuscular Volume 97.9 fL (80.0-98.0); Monocytes Absolute Auto 0.5 X10*3/uL (0.1-1.2); Monocytes Percent Auto 4.7 % (2-11); Neutrophils Absolute Auto 7.1 x10*3/uL (2.0-8.3); Platelet Count 238 X10*3/uL (160-400); Red Blood Count 4.27 X10*6/uL (4.20-5.50); Red Cell Distribution Width 13.2 % (11.0-16.0); White Blood Count 10.8 X10*3/uL (4.8-10.8)
--- NOTE | 2021-10-12 03:24 | ED_ITS ---
HPI - Chest Pain General Chief Complaint: Chest Pain Stated Complaint: upper shoulder and chest pain Time Seen by Provider: 10/12/21 03:04 Source: patient and EMS Mode of arrival: EMS Limitations: no limitations History of Present Illness HPI narrative: 51-year-old female brought in by EMS for evaluation of chest pain. Chest pain started about 02:00 while patient was sleeping, patient felt pressure on her left chest area radiating to the left shoulder with difficulty breathing, pain is been constant since 02:00, pain is improving on arrival to the ED. no recent travel, no lower extremity swelling, no prolonged immobilization. Patient is an active smoker, history of coronary artery disease and PR in the past required 2 stents, history of cerebral aneurysm with bifrontal craniotomy for aneurysmal clipping, patient declined any headache now. Related Data Previous Rx's Medication Instructions Recorded potassium chloride 10 mEq 10 meq PO DAILY #3 caps 02/04/21 capsule,extended release Allergies Allergy/AdvReac Type Severity Reaction Status Date / Time Iodinated Contrast Media Allergy Mild RASH Verified 10/12/21 03:04 [CONTRAST, IV] DECONGESTIONS Allergy Unknown INCREASED Uncoded 10/12/21 03:04 HEART RATE Review of Systems Review of Systems: All other systems are reviewed and are negative Constitutional: Reports as per HPI and Reports no additional constitutional complaints Eyes: Reports as per HPI and Reports no additional eye complaints Reports system reviewed and no additional complaints, except as documented Cardiovascular: Reports as per HPI and Reports no additional cardiovascular complaints Respiratory: Reports as per HPI and Reports no additional respiratory complaints Gastrointestinal: Reports as per HPI and Reports no additional gastrointestinal complaints Genitourinary: Reports no additional female genitourinary complaints Musculoskeletal: Reports no additional musculoskeletal complaints Skin/Breast: Reports system reviewed and no additional complaints, except as do cu Psychiatric: Reports no additional psychiatric complaints Endocrine: Reports no additional endocrine complaints Hematologic/Lymphatic: Reports no additional hematologic/lymphatic complaints Allergic/Immunologic: Reports no additional allergic/immunologic complaints Reports system reviewed and no additional complaints, except as documented and Reports Abnormal speech present [facility] Past Medical History Medical History Cerebral aneurysm HTN (hypertension) Myocardial infarct Surgical History H/O craniotomy H/O heart artery stent Social History Social History Household Members: Significant Other Housing: Apartment Alcohol intake: unknown Patient Tobacco Use Status: Tobacco use Unknown Use of substances other than those prescribed or required for medical reasons: Unknown Substance Use Type: Marijuana Advance Directives: No service: No Current occupational status: unemployed Physical Exam Vital Signs: Vital Signs: Last Vital Signs Pulse 71 10/12/21 04:48 Resp 16 10/12/21 04:48 BP 145/95 H 10/12/21 04:48 Pulse Ox 97 10/12/21 04:48 O2 Del Method 10/12/21 04:48 BMI result Body Mass Index 26.4 vital signs have been reviewed as appeared to be correct. Blood pressure normal. Heart rate normal. Respiration rate normal. Temperature normal. Oxygen saturation normal. Appearance: Anxious, Alert. Oriented X3. No acute distress. Head: Normal external exam. Normocephalic. Atraumatic. No Kimble signs noted. No raccoon eyes noted Eyes: PERRLA. EOMI. Conjunctiva and sclera normal. Eyelids normal. ENT: TM's Normal. Pharynx normal. Uvula midline. Moist mucous membranes. No trismus noted. No drooling noted. No muffled voice noted. Neck: Normal inspection. Neck supple. FROM. No adenopathy. Thyroid Normal. No meningeal signs. No neck mass noted. CVS: Normal heart rate and rhythm. Heart sound normal. No murmurs noted. Pulses normal throughout. Respiratory: No respiratory distress. Painless inspiration. Breath sounds normal. No wheezes/rales/rhonchi noted. Chest nontender. No accessory muscle usage noted or decreased air movement noted. Abdomen: Soft and nontender. Bowel sounds normal in all 4 quadrants. No distention noted. No organomegaly noted. No visible injury noted. Back: No CVA tenderness. Full range of motion noted. Skin: Skin warm and dry. Normal skin color. Normal skin turgor. No rashes /lesions/lacerations noted. Extremities: No lower extremity edema. Extremities exhibit normal range of motion. Extremities nontender. Neuro: Oriented X 3. Cranial nerve exam: II-XII are grossly intact No motor deficit. No sensory deficit. Reflexes normal. Course Reevaluation(s) Reevaluation #1: Patient feels better, physical exam and history and EKG with blood workup findings are more consistent with muscular pain. HEART score is 2 with 2- troponin. Patient also had mid low risk for PE/DVT with negative D-dimer. Patient was reassured and will discharge to follow-up with PCP. Time: 06:30 [facility] - Chest Pain Medical Records Data Attestation: I reviewed the patient's medical records. Lab Data Attestation: I reviewed the patient's lab results. Result diagrams: 10/12/21 03:09 10/12/21 03:09 Labs: Lab Results 10/12/21 10/12/21 10/12/21 Range/Units 03:09 03:09 03:09 WBC 10.8 (4.8-10.8) X10*3/uL RBC 4.27 (4.20-5.50) X10*6/uL Hgb 14.7 (12.0-16.0) g/dl Hct 41.8 (37.0-47.0) % MCV 97.9 (80.0-98.0) fL MCH 34.4 H (27.0-33.0) pg MCHC 35.2 H (31.0-35.0) g/dl RDW 13.2 (11.0-16.0) % Plt Count 238 (160-400) X10*3/uL MPV 9.0 L (9.4-12.3) fL Immature Gran % (Auto) 0.6 H (0.0-0.4) % Neut % (Auto) 66.0 (45-73) % Lymph % (Auto) 24.3 (20-40) % [place] % (Auto) 4.7 (2-11) % Eos % (Auto) 4.1 H (0-4) % Baso % (Auto) 0.3 (0-2) % Lymph # (Auto) 2.6 (1.2-4.9) X10*3/uL [place] # (Auto) 0.5 (0.1-1.2) X10*3/uL Eos # (Auto) 0.4 (0.0-0.4) X10*3/uL Baso # (Auto) 0.0 (0.0-0.2) X10*3/uL Abs Immat Gran (auto) 0.06 H (0.00-0.03) X10*3/uL Absolute Neuts (auto) 7.1 (2.0-8.3) x10*3/uL Absolute Nucleated RBC 0.000 (0.0-0.012) X10*3/uL Nucleated RBC % (auto) 0.0 (0.0-0.2) /100WBC D-Dimer High Sensitivty NG/ML Sodium 138 (135-145) mmol/L Potassium 3.5 D (3.3-5.1) mmol/L Chloride 102 (96-108) mmol/L Carbon Dioxide 24 (22-29) mmol/L Anion Gap 16 (12-20) BUN 7 L (9-16) mg/dL Creatinine 0.62 (0.5-1.4) mg/dL Estim Creat Clear Calc 87.7 Estimated GFR > 60 Random Glucose 114 (60-115) mg/dL Calcium 8.9 D (8.4-10.2) mg/dL Troponin I High Sens < 3.5 (<3.5-17.0) ng/L 10/12/21 10/12/21 Range/Units 03:09 05:22 WBC (4.8-10.8) X10*3/uL RBC (4.20-5.50) X10*6/uL Hgb (12.0-16.0) g/dl Hct (37.0-47.0) % MCV (80.0-98.0) fL MCH (27.0-33.0) pg MCHC (31.0-35.0) g/dl RDW (11.0-16.0) % Plt Count (160-400) X10*3/uL MPV (9.4-12.3) fL Immature Gran % (Auto) (0.0-0.4) % Neut % (Auto) (45-73) % Lymph % (Auto) (20-40) % [place] % (Auto) (2-11) % Eos % (Auto) (0-4) % Baso % (Auto) (0-2) % Lymph # (Auto) (1.2-4.9) X10*3/uL [place] # (Auto) (0.1-1.2) X10*3/uL Eos # (Auto) (0.0-0.4) X10*3/uL Baso # (Auto) (0.0-0.2) X10*3/uL Abs Immat Gran (auto) (0.00-0.03) X10*3/uL Absolute Neuts (auto) (2.0-8.3) x10*3/uL Absolute Nucleated RBC (0.0-0.012) X10*3/uL Nucleated RBC % (auto) (0.0-0.2) /100WBC D-Dimer High Sensitivty 226 NG/ML Sodium (135-145) mmol/L Potassium (3.3-5.1) mmol/L Chloride (96-108) mmol/L Carbon Dioxide (22-29) mmol/L Anion Gap (12-20) BUN (9-16) mg/dL Creatinine (0.5-1.4) mg/dL Estim Creat Clear Calc Estimated GFR Random Glucose (60-115) mg/dL Calcium (8.4-10.2) mg/dL Troponin I High Sens < 3.5 (<3.5-17.0) ng/L Imaging Data Chest x-ray: Attestation: I personally reviewed and interpreted this imaging study as follows: Radiologist's impression: No acute pulmonary finding ECG Data ECG #1: Attestation: I personally reviewed and interpreted this ECG as follows: Interpretation: normal sinus rhythm at 75 beats per minute, normal intervals, normal axis deviation, no ST-T changes. Discharge Plan Discharge Clinical Impression: Atypical chest pain Patient Disposition: Home, Self-Care Instructions: Noncardiac Chest Pain (ED) Prescriptions: No Action potassium chloride 10 mEq capsule, extended release 10 meq PO DAILY Qty: 3 0RF Referrals: Physician,Unknown J [Primary Care Provider] -
[2021-10-12 03:29] LABS: D Dimer High Sensitivity 226 NG/ML
[2021-10-12 03:40] LABS: Anion Gap 16 (12-20); Blood Urea Nitrogen 7 mg/dL (9-16); Calcium 8.9 mg/dL (8.4-10.2); Carbon Dioxide 24 mmol/L (22-29); Chloride 102 mmol/L (96-108); Creatinine Clr Calc Pharmacy 87.7; Estimated Glomerular Filt Rate > 60; Glucose Random 114 mg/dL (60-115); Potassium 3.5 mmol/L (3.3-5.1); Sodium 138 mmol/L (135-145)
[2021-10-12 03:42] LABS: Troponin-I High Sensitivity < 3.5 ng/L (<3.5-17.0)
[2021-10-12 04:48] VITALS: BP 145/95; PULSE 71; RESP 16; O2SAT 97
[2021-10-12 05:46] LABS: Troponin-I High Sensitivity < 3.5 ng/L (<3.5-17.0)
[2021-10-12 06:15] VITALS: BP 150/85; PULSE 85; RESP 17; TEMP 36.5; O2SAT 95
== END 2021-10-12 06:15 | disposition home or self-care (01) ==
PROVIDERS: Emergency Provider Emergency Medicine
DX: R07.89 Other chest pain (principal); M25.512 Pain in left shoulder; Z79.899 Other long term (current) drug therapy
CPT/HCPCS: 36415; 71045; 80048; 84484; 85025; 85379; 93005; 99284

== ENCOUNTER 2021-11-16 00:49 | Emergency (ER) | payer MEDICARE, MEDICAID, SELFPAY ==
[2021-11-16 00:56] VITALS: BP 210/121; PULSE 101; RESP 22; TEMP 36.6; O2SAT 98; BMI 33.2
--- NOTE | 2021-11-16 01:00 | ECG_ITS ---
Test Reason : CHEST PAIN Blood Pressure : / mmHG Vent. Rate : 084 BPM Atrial Rate : 084 BPM P-R Int : 128 ms QRS Dur : 076 ms QT Int : 370 ms P-R-T Axes : 029 028 052 degrees QTc Int : 437 ms Poor data quality, interpretation may be adversely affected Normal sinus rhythm with sinus arrhythmia Normal ECG When compared with ECG of 12-OCT-2021 03:01, No significant change was found Referred By: Generic ED Physician Electronically Signed By:LAUREEN WILDE
[2021-11-16 01:17] VITALS: BP 197/116; PULSE 94; RESP 19; TEMP 36.6; O2SAT 95
--- NOTE | 2021-11-16 01:19 | ED_ITS ---
HPI - Chest Pain General Chief Complaint: Chest Pain Stated Complaint: Cp Time Seen by Provider: 11/16/21 01:19 History of Present Illness HPI narrative: Patient 51 years old with history of coronary disease and [place] status post 2 stent placement active smoker , hypertension with history of cerebral aneurysm with bifrontal craniotomy for aneurysmal clipping came here for mid chest pain just prior to arrival patient was seen here on 10/12 with similar symptoms with workup negative. Patient feels heaviness in the mid chest no radiation of the pain feels slightly nauseated no diaphoresis feels very anxious also Related Data Previous Rx's Medication Instructions Recorded potassium chloride 10 mEq 10 meq PO DAILY #3 caps 02/04/21 capsule,extended release lorazepam 1 mg tablet (Ativan) 1 mg PO BEDTIME PRN anxiety #20 11/16/21 tabs Allergies Allergy/AdvReac Type Severity Reaction Status Date / Time Iodinated Contrast Media Allergy Mild RASH Verified 10/12/21 03:04 [CONTRAST, IV] DECONGESTIONS Allergy Unknown INCREASED Uncoded 10/12/21 03:04 HEART RATE Review of Systems Review of Systems: Yes all other systems are reviewed and are negative [facility] Past Medical History Medical History Cerebral aneurysm HTN (hypertension) Myocardial infarct Surgical History H/O craniotomy H/O heart artery stent Social History Social History Household Members: Significant Other Housing: Apartment Alcohol intake: unknown Patient Tobacco Use Status: Tobacco use Unknown Substance Use Type: Marijuana Advance Directives: No Advance Directives Information Provided: No service: No Current occupational status: unemployed Physical Exam Vital Signs: Vital Signs: Last Vital Signs Temp 97.9 F 11/16/21 01:17 Pulse 72 11/16/21 03:52 Resp 18 11/16/21 03:52 BP 165/100 H 11/16/21 03:52 Pulse Ox 95 11/16/21 03:52 O2 Del Method 11/16/21 03:52 BMI result Body Mass Index 33.2 Appearance: Alert. Oriented X3. Very anxious Eyes: PERRLA, No Nystagmus ENT: Pharynx normal. Oral Mucosa moist Neck: Normal inspection. Neck supple. CVS: Normal heart rate and rhythm. Pulses normal. Respiratory: No respiratory distress. Equal air entry bilateral, no wheezing/rales/rhonchi Abdomen: Soft and nontender. Bowel sounds are present, no mass palpable, no CVA tenderness Skin: Skin warm and dry. Normal skin color. Normal skin turgor. Extremities: No lower extremity edema. No calf tenderness Neuro: Oriented X 3. No motor deficit. No sensory deficit.No cerebellar signs , cranial nerves II-XII intact MDM - Chest Pain MDM Narrative Medical decision making narrative: Patient with mid chest pain with increased anxiety and 2 sets of troponin negative no acute ischemic changes in the EKG will discharge patient home advised to follow up with PCP Differential Diagnosis Differential diagnosis: Likely stable angina, unstable angina pectoris and atypical chest pain Medical Records Data Attestation: I reviewed the patient's medical records. Lab Data Result diagrams: 11/16/21 01:44 11/16/21 01:44 Labs: Lab Results 11/16/21 11/16/21 11/16/21 Range/Units 01:11 01:44 01:44 WBC 10.6 (4.8-10.8) X10*3/uL RBC 4.73 (4.20-5.50) X10*6/uL Hgb 16.6 H (12.0-16.0) g/dl Hct 47.2 H (37.0-47.0) % MCV 99.8 H (80.0-98.0) fL MCH 35.1 H (27.0-33.0) pg MCHC 35.2 H (31.0-35.0) g/dl RDW 13.8 (11.0-16.0) % Plt Count 265 (160-400) X10*3/uL MPV 9.6 (9.4-12.3) fL Immature Gran % (Auto) 0.8 H (0.0-0.4) % Neut % (Auto) 76.2 H (45-73) % Lymph % (Auto) 16.4 L (20-40) % [place] % (Auto) 5.0 (2-11) % Eos % (Auto) 1.2 (0-4) % Baso % (Auto) 0.4 (0-2) % Lymph # (Auto) 1.7 (1.2-4.9) X10*3/uL [place] # (Auto) 0.5 (0.1-1.2) X10*3/uL Eos # (Auto) 0.1 (0.0-0.4) X10*3/uL Baso # (Auto) 0.0 (0.0-0.2) X10*3/uL Abs Immat Gran (auto) 0.08 H (0.00-0.03) X10*3/uL Absolute Neuts (auto) 8.1 (2.0-8.3) x10*3/uL Absolute Nucleated RBC 0.000 (0.0-0.012) X10*3/uL Nucleated RBC % (auto) 0.0 (0.0-0.2) /100WBC PT (10.0-13.1) SEC INR (0.9-1.1) APTT (26.0-36.4) SEC D-Dimer High Sensitivty NG/ML Sodium 138 (135-145) mmol/L Potassium 3.6 (3.3-5.1) mmol/L Chloride 100 (96-108) mmol/L Carbon Dioxide 24 (22-29) mmol/L Anion Gap 18 (12-20) BUN 4 L (9-16) mg/dL Creatinine 0.64 (0.5-1.4) mg/dL Estim Creat Clear Calc 95.5 Estimated GFR > 60 Random Glucose 120 H (60-115) mg/dL Calcium 9.2 (8.4-10.2) mg/dL Total Bilirubin 0.8 (0.0-1.0) mg/dL AST 29 (5-31) U/L ALT 14 (0-31) U/L Alkaline Phosphatase 119 H (39-117) U/L Troponin I High Sens < 3.5 (<3.5-17.0) ng/L Total Protein 7.1 (6.5-8.0) g/dL Albumin 3.8 (3.5-5.0) g/dL 11/16/21 11/16/21 Range/Units 01:44 04:01 WBC (4.8-10.8) X10*3/uL RBC (4.20-5.50) X10*6/uL Hgb (12.0-16.0) g/dl Hct (37.0-47.0) % MCV (80.0-98.0) fL MCH (27.0-33.0) pg MCHC (31.0-35.0) g/dl RDW (11.0-16.0) % Plt Count (160-400) X10*3/uL MPV (9.4-12.3) fL Immature Gran % (Auto) (0.0-0.4) % Neut % (Auto) (45-73) % Lymph % (Auto) (20-40) % [place] % (Auto) (2-11) % Eos % (Auto) (0-4) % Baso % (Auto) (0-2) % Lymph # (Auto) (1.2-4.9) X10*3/uL [place] # (Auto) (0.1-1.2) X10*3/uL Eos # (Auto) (0.0-0.4) X10*3/uL Baso # (Auto) (0.0-0.2) X10*3/uL Abs Immat Gran (auto) (0.00-0.03) X10*3/uL Absolute Neuts (auto) (2.0-8.3) x10*3/uL Absolute Nucleated RBC (0.0-0.012) X10*3/uL Nucleated RBC % (auto) (0.0-0.2) /100WBC PT 10.8 (10.0-13.1) SEC INR 0.9 (0.9-1.1) APTT 27.4 (26.0-36.4) SEC D-Dimer High Sensitivty < 150 NG/ML Sodium (135-145) mmol/L Potassium (3.3-5.1) mmol/L Chloride (96-108) mmol/L Carbon Dioxide (22-29) mmol/L Anion Gap (12-20) BUN (9-16) mg/dL Creatinine (0.5-1.4) mg/dL Estim Creat Clear Calc Estimated GFR Random Glucose (60-115) mg/dL Calcium (8.4-10.2) mg/dL Total Bilirubin (0.0-1.0) mg/dL AST (5-31) U/L ALT (0-31) U/L Alkaline Phosphatase (39-117) U/L Troponin I High Sens < 3.5 (<3.5-17.0) ng/L Total Protein (6.5-8.0) g/dL Albumin (3.5-5.0) g/dL ECG Data ECG #1: Attestation: I personally reviewed and interpreted this ECG as follows: Interpretation: Normal sinus rhythm with sinus arrhythmia nonspecific ST T wave changes heart rate 84 beats per minute nursing will change from the previous EKG no acute ischemia Discharge Plan Discharge Clinical Impression: Chest pain, HTN (hypertension) Patient Disposition: Home, Self-Care Additional Instructions: take medication for your blood pressure as prescribed At this time there is no evidence of acute heart injury please follow-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
[2021-11-16 01:41] LABS: Troponin-I High Sensitivity < 3.5 ng/L (<3.5-17.0)
[2021-11-16] MEDS: Nitroglycerin 2 % Oint 1 GM Packet 1 INCH TRANSDERMA (01:48)
[2021-11-16] MEDS: Aspirin 81 MG TAB.CHEW 162 MG PO (01:48)
[2021-11-16] MEDS: Midazolam HCl/PF 2 MG/2 ML VIAL 1 MG IVPUSH (01:49)
[2021-11-16 02:16] LABS: Basophils Percent Auto 0.4 % (0-2); Eosinophils Absolute Auto 0.1 X10*3/uL (0.0-0.4); Eosinophils Percent Auto 1.2 % (0-4); Hematocrit 47.2 % (37.0-47.0); Hemoglobin 16.6 g/dl (12.0-16.0); Imm Gran Abs Auto 0.08 X10*3/uL (0.00-0.03); Imm Gran Pct Auto 0.8 % (0.0-0.4); Lymphocytes Absolute Auto 1.7 X10*3/uL (1.2-4.9); Lymphocytes Percent Auto 16.4 % (20-40); Mean Corpuscular HGB Conc 35.2 g/dl (31.0-35.0); Mean Corpuscular Hemoglobin 35.1 pg (27.0-33.0); Mean Corpuscular Volume 99.8 fL (80.0-98.0); Mean Platelet Volume 9.6 fL (9.4-12.3); Monocytes Absolute Auto 0.5 X10*3/uL (0.1-1.2); Neutrophils Absolute Auto 8.1 x10*3/uL (2.0-8.3); Neutrophils Percent Auto 76.2 % (45-73); Platelet Count 265 X10*3/uL (160-400); Red Blood Count 4.73 X10*6/uL (4.20-5.50); Red Cell Distribution Width 13.8 % (11.0-16.0); White Blood Count 10.6 X10*3/uL (4.8-10.8)
[2021-11-16 02:44] LABS: Alanine Aminotransferase 14 U/L (0-31); Albumin Level 3.8 g/dL (3.5-5.0); Alkaline Phosphatase 119 U/L (39-117); Anion Gap 18 (12-20); Aspartate Amino Transferase 29 U/L (5-31); Bilirubin Total 0.8 mg/dL (0.0-1.0); Blood Urea Nitrogen 4 mg/dL (9-16); Calcium 9.2 mg/dL (8.4-10.2); Carbon Dioxide 24 mmol/L (22-29); Chloride 100 mmol/L (96-108); Creatinine Clr Calc Pharmacy 95.5; Estimated Glomerular Filt Rate > 60; Glucose Random 120 mg/dL (60-115); Potassium 3.6 mmol/L (3.3-5.1); Sodium 138 mmol/L (135-145); Total Protein 7.1 g/dL (6.5-8.0)
[2021-11-16 02:45] VITALS: BP 146/95; PULSE 88; RESP 20
[2021-11-16 02:47] LABS: INTERNATIONAL NORM RATIO 0.9 (0.9-1.1); Prothrombin Time 10.8 SEC (10.0-13.1)
[2021-11-16 02:49] LABS: MANUAL DIFF FLAG NO
[2021-11-16 02:50] LABS: D Dimer High Sensitivity < 150 NG/ML; Partial Thromboplastin Time 27.4 SEC (26.0-36.4)
[2021-11-16 03:41] VITALS: BP 153/83; PULSE 90; RESP 21
[2021-11-16] MEDS: ALPRAZolam 0.5 MG TABLET PO (03:50)
[2021-11-16 03:52] VITALS: BP 165/100; PULSE 72; RESP 18; O2SAT 95
[2021-11-16 04:32] LABS: Troponin-I High Sensitivity < 3.5 ng/L (<3.5-17.0)
== END 2021-11-16 04:45 | disposition home or self-care (01) ==
PROVIDERS: Emergency Provider Internal Medicine
DX: R07.9 Chest pain, unspecified (principal); I10 Essential (primary) hypertension; F41.9 Anxiety disorder, unspecified; I25.2 Old myocardial infarction; F17.200 Nicotine dependence, unspecified, uncomplicated; F12.90 Cannabis use, unspecified, uncomplicated
CPT/HCPCS: 36415; 80053; 84484; 85025; 85379; 85610; 85730; 93005; 96374; 99284; 99285; J2250

== ENCOUNTER 2021-11-28 17:38 | Emergency (ER) | payer MEDICARE, MEDICAID, SELFPAY ==
--- NOTE | 2021-11-28 | ECG_ITS ---
Test Reason : abdominal pain Blood Pressure : / mmHG Vent. Rate : 077 BPM Atrial Rate : 077 BPM P-R Int : 146 ms QRS Dur : 074 ms QT Int : 396 ms P-R-T Axes : 049 039 047 degrees QTc Int : 448 ms Normal sinus rhythm Nonspecific ST abnormality Abnormal ECG When compared with ECG of 16-NOV-2021 01:01, No significant change was found Referred By: Generic ED Physician Electronically Signed By:LAUREEN WILDE
[2021-11-28 17:50] VITALS: BP 189/99; PULSE 97; RESP 18; TEMP 36.1; O2SAT 100; BMI 26.4
[2021-11-28 18:08] LABS: MANUAL DIFF FLAG NO
[2021-11-28 18:10] LABS: Basophils Absolute Auto 0.1 X10*3/uL (0.0-0.2); Basophils Percent Auto 0.3 % (0-2); Hemoglobin 18.5 g/dl (12.0-16.0); Imm Gran Pct Auto 0.6 % (0.0-0.4); Lymphocytes Absolute Auto 1.3 X10*3/uL (1.2-4.9); Lymphocytes Percent Auto 7.5 % (20-40); Mean Corpuscular HGB Conc 35.6 g/dl (31.0-35.0); Mean Corpuscular Hemoglobin 35.1 pg (27.0-33.0); Mean Corpuscular Volume 98.7 fL (80.0-98.0); Mean Platelet Volume 9.7 fL (9.4-12.3); Monocytes Absolute Auto 0.6 X10*3/uL (0.1-1.2); Monocytes Percent Auto 3.3 % (2-11); Neutrophils Absolute Auto 15.8 x10*3/uL (2.0-8.3); Neutrophils Percent Auto 88.3 % (45-73); Platelet Count 299 X10*3/uL (160-400); Red Blood Count 5.27 X10*6/uL (4.20-5.50); White Blood Count 17.8 X10*3/uL (4.8-10.8)
[2021-11-28 18:29] LABS: Troponin-I High Sensitivity 4.2 ng/L (<3.5-17.0)
[2021-11-28 18:30] LABS: Alanine Aminotransferase 29 U/L (0-31); Albumin Level 4.2 g/dL (3.5-5.0); Alkaline Phosphatase 148 U/L (39-117); Anion Gap 23 (12-20); Aspartate Amino Transferase 28 U/L (5-31); Bilirubin Direct 0.4 mg/dL (0.0-0.5); Bilirubin Total 1.2 mg/dL (0.0-1.0); Blood Urea Nitrogen 5 mg/dL (9-16); Calcium 10.2 mg/dL (8.4-10.2); Carbon Dioxide 26 mmol/L (22-29); Chloride 95 mmol/L (96-108); Creatinine Clr Calc Pharmacy 74.5; Estimated Glomerular Filt Rate > 60; Glucose Random 167 mg/dL (60-115); Lipase 14 U/L (8-78); Potassium 3.3 mmol/L (3.3-5.1); Sodium 141 mmol/L (135-145); Total Protein 7.8 g/dL (6.5-8.0)
--- NOTE | 2021-11-28 21:38 | PC.NURSE ---
called x 3 to triage for reassessment. No answer. Presumed LWT
== END 2021-11-28 22:04 | disposition left against medical advice (07) ==
PROVIDERS: Emergency Provider Emergency Medicine
DX: R11.10 Vomiting, unspecified (principal); R07.89 Other chest pain
CPT/HCPCS: 36415; 80053; 82248; 83690; 84484; 85025; 93005; 99283

== ENCOUNTER 2021-11-29 02:53 | Emergency (ER) | payer MEDICARE, MEDICAID, SELFPAY ==
--- NOTE | 2021-11-29 | ECG_ITS ---
Test Reason : back pain /high bp Blood Pressure : / mmHG Vent. Rate : 092 BPM Atrial Rate : 092 BPM P-R Int : 142 ms QRS Dur : 068 ms QT Int : 378 ms P-R-T Axes : 065 050 059 degrees QTc Int : 467 ms Normal sinus rhythm Possible Left atrial enlargement Nonspecific ST and T wave abnormality Abnormal ECG When compared with ECG of 28-NOV-2021 17:59, T wave amplitude has decreased in Anterior leads Referred By: Generic ED Physician Electronically Signed By:LAUREEN WILDE
[2021-11-29 03:17] VITALS: BP 195/116; PULSE 92; RESP 16; TEMP 36.6; O2SAT 99; BMI 26.4
[2021-11-29 03:27] VITALS: BP 191/107; PULSE 91; RESP 21; O2SAT 100
--- NOTE | 2021-11-29 03:53 | ED.GENADULT ---
HPI - General Adult General Chief complaint: General Medical Stated complaint: left and came back. Abd pain, back pain Time Seen by Provider: 11/29/21 03:32 Source: patient Limitations: no limitations History of Present Illness HPI narrative: This is a 51-year-old female who complains of vomiting since yesterday morning. Patient has had similar symptoms in the past few times. She does admit to marijuana use to help her appetite. She denies any diarrhea. She denies abdominal bloating. She denies fever. She denies abdominal pain, complains primarily of nausea. She does have mild left-sided chest pain. She does have history of brain surgery and heart attack. Related Data Previous Rx's Medication Instructions Recorded potassium chloride 10 mEq 10 meq PO DAILY #3 caps 02/04/21 capsule,extended release lorazepam 1 mg tablet (Ativan) 1 mg PO BEDTIME PRN anxiety #20 11/16/21 tabs ondansetron 4 mg disintegrating 4 mg PO Q6H PRN nausea and 11/29/21 tablet vomiting #10 tabs Allergies Allergy/AdvReac Type Severity Reaction Status Date / Time Iodinated Contrast Media Allergy Mild RASH Verified 10/12/21 03:04 [CONTRAST, IV] DECONGESTIONS Allergy Unknown INCREASED Uncoded 10/12/21 03:04 HEART RATE Review of Systems Review of Systems: Yes all other systems are reviewed and are negative Constitutional: Constitutional: Reports as per HPI and Denies fever(s) Eyes: Eyes: Reports as per HPI and Reports no additional eye complaints ENT: Reports system reviewed and no additional complaints, except as documented, Reports as per HPI, Denies nasal congestion, Denies nasal discharge and Denies sore throat Cardiovascular: Cardiovascular: Reports as per HPI, Reports chest pain and Reports dyspnea Respiratory: Respiratory: Reports as per HPI, Denies cough and Reports dyspnea Gastrointestinal: Gastrointestinal: Reports as per HPI, Denies abdominal pain, Denies diarrhea, Reports nausea and Reports vomiting Genitourinary: Genitourinary: Reports as per HPI, Denies hematuria, Denies urinary frequency and Denies dysuria Musculoskeletal: Musculoskeletal: Reports no additional musculoskeletal complaints, Reports back pain and Denies numbness Integumentary/Breasts: Skin/Breast: Reports as per HPI and Denies rash Neurologic: Reports as per HPI, Denies focal weakness and Denies numbness Psychiatric: Psychiatric: Reports no additional psychiatric complaints and Reports as per HPI Endocrine: Endocrine: Reports no additional endocrine complaints and Reports as per HPI Hematologic/Lymphatic: Hematologic/Lymphatic: Reports no additional hematologic/lymphatic complaints, Reports as per HPI and Reports other (No peripheral edema) [facility] Past Medical History Medical History Cerebral aneurysm HTN (hypertension) Myocardial infarct Surgical History H/O craniotomy H/O heart artery stent Social History Social History Household Members: Significant Other Housing: Apartment Alcohol intake: unknown Patient Tobacco Use Status: Tobacco use Unknown Substance Use Type: Marijuana Advance Directives: No Advance Directives Information Provided: Yes service: No Current occupational status: unemployed Physical Exam ED Vital Signs: Vital Signs - 24 hr 11/29/21 03:17 11/29/21 03:27 11/29/21 05:54 Temperature 98 F Pulse Rate 92 91 79 Respiratory Rate 16 21 H 20 Blood Pressure 195/116 H 191/107 H 179/113 H Pulse Oximetry 99 100 95 Oxygen Delivery Method Room Air Room Air Room Air BMI result Body Mass Index 26.4 Const Other: Patient intermittently uncomfortable appearing with severe dry he General: no acute distress Orientation/consciousness: patient oriented x3 HENMT Head: Yes normal to inspection General nose exam: Normal external nose present Mouth: moist mucous membranes Throat: Yes posterior oropharynx normal, Yes tonsils normal and Yes uvula midline Eyes Eyelids: Yes eyelids normal Conjunctivae: conjunctivae normal Pupils: Equal, round and reactive pupils present Neck Neck: Yes supple Resp Effort & Inspection: normal respiratory effort Auscultation: clear to auscultation bilaterally Cardio Rate: regular rate Rhythm: regular rhythm Heart sounds: S1 normal heart sound present, S2 normal heart sound present, no gallops, no murmurs and no rubs GI Inspection: No distended Palpation (GI): Soft to palpation and nontender Percussion: Yes normal to percussion Auscultation: normal bowel sounds Skin General skin exam: other (Warm and dry) Neuro General: patient oriented x3 and CN's II-XI intact bilaterally Cranial nerves: Yes Equal, round and reactive pupils present Extrem General: Yes no pedal edema Psych Affect: normal affect Attitude: cooperative Medical Decision Making MDM Narrative Medical decision making narrative: patient who uses marijuana regularly, has severe vomiting since yesterday morning. Patient has had similar symptoms in the past. The patient likely has cyclical vomiting syndrome. Patient had no abdominal tenderness. She had improvement with Zofran, Haldol, normal saline x2 L IV. She was hypokalemic with a potassium at 2.8 and is being given KCl 20 mEq IV over 2 hours, as well as 20 mg p.o.. She was given a repeat dose of antiemetics, Reglan 10 mg IV. She is being prescribed Zofran. Lab Data Lab results reviewed: Yes I reviewed the patient's lab results. Result diagrams: 11/29/21 03:43 11/29/21 03:43 Labs: Lab Results 11/29/21 11/29/21 11/29/21 Range/Units 03:43 03:43 03:43 WBC 13.5 H (4.8-10.8) X10*3/uL RBC 5.15 (4.20-5.50) X10*6/uL Hgb 18.0 H (12.0-16.0) g/dl Hct 50.3 H (37.0-47.0) % MCV 97.7 (80.0-98.0) fL MCH 35.0 H (27.0-33.0) pg MCHC 35.8 H (31.0-35.0) g/dl RDW 13.9 (11.0-16.0) % Plt Count 306 (160-400) X10*3/uL MPV 10.0 (9.4-12.3) fL Immature Gran % (Auto) 0.6 H (0.0-0.4) % Neut % (Auto) 80.8 H (45-73) % Lymph % (Auto) 13.1 L (20-40) % [place] % (Auto) 5.2 (2-11) % Eos % (Auto) 0.1 (0-4) % Baso % (Auto) 0.2 (0-2) % Lymph # (Auto) 1.8 (1.2-4.9) X10*3/uL [place] # (Auto) 0.7 (0.1-1.2) X10*3/uL Eos # (Auto) 0.0 (0.0-0.4) X10*3/uL Baso # (Auto) 0.0 (0.0-0.2) X10*3/uL Abs Immat Gran (auto) 0.08 H (0.00-0.03) X10*3/uL Absolute Neuts (auto) 10.9 H (2.0-8.3) x10*3/uL Absolute Nucleated RBC 0.000 (0.0-0.012) X10*3/uL Nucleated RBC % (auto) 0.0 (0.0-0.2) /100WBC Sodium 141 (135-145) mmol/L Potassium 2.8 L (3.3-5.1) mmol/L Chloride 95 L (96-108) mmol/L Carbon Dioxide 25 (22-29) mmol/L Anion Gap 24 H (12-20) BUN 6 L (9-16) mg/dL Creatinine 0.67 (0.5-1.4) mg/dL Estim Creat Clear Calc 81.2 Estimated GFR > 60 Random Glucose 142 H (60-115) mg/dL Calcium 10.0 (8.4-10.2) mg/dL Total Bilirubin 1.5 H (0.0-1.0) mg/dL AST 25 (5-31) U/L ALT 26 (0-31) U/L Alkaline Phosphatase 132 H (39-117) U/L Troponin I High Sens 6.2 (<3.5-17.0) ng/L Total Protein 8.0 (6.5-8.0) g/dL Albumin 4.2 (3.5-5.0) g/dL Urine Color Urine Appearance Urine pH (5.0-9.0) Ur Specific [place] (1.005-1.025) Urine Protein (Neg-Trace) mg/dL Urine Glucose (UA) (Negative) mg/dL Urine Ketones (Negative) mg/dL Urine Blood (Negative) Urine Nitrite (Negative) Ur Leukocyte Esterase (Negative) 11/29/21 Range/Units 06:07 WBC (4.8-10.8) X10*3/uL RBC (4.20-5.50) X10*6/uL Hgb (12.0-16.0) g/dl Hct (37.0-47.0) % MCV (80.0-98.0) fL MCH (27.0-33.0) pg MCHC (31.0-35.0) g/dl RDW (11.0-16.0) % Plt Count (160-400) X10*3/uL MPV (9.4-12.3) fL Immature Gran % (Auto) (0.0-0.4) % Neut % (Auto) (45-73) % Lymph % (Auto) (20-40) % [place] % (Auto) (2-11) % Eos % (Auto) (0-4) % Baso % (Auto) (0-2) % Lymph # (Auto) (1.2-4.9) X10*3/uL [place] # (Auto) (0.1-1.2) X10*3/uL Eos # (Auto) (0.0-0.4) X10*3/uL Baso # (Auto) (0.0-0.2) X10*3/uL Abs Immat Gran (auto) (0.00-0.03) X10*3/uL Absolute Neuts (auto) (2.0-8.3) x10*3/uL Absolute Nucleated RBC (0.0-0.012) X10*3/uL Nucleated RBC % (auto) (0.0-0.2) /100WBC Sodium (135-145) mmol/L Potassium (3.3-5.1) mmol/L Chloride (96-108) mmol/L Carbon Dioxide (22-29) mmol/L Anion Gap (12-20) BUN (9-16) mg/dL Creatinine (0.5-1.4) mg/dL Estim Creat Clear Calc Estimated GFR Random Glucose (60-115) mg/dL Calcium (8.4-10.2) mg/dL Total Bilirubin (0.0-1.0) mg/dL AST (5-31) U/L ALT (0-31) U/L Alkaline Phosphatase (39-117) U/L Troponin I High Sens (<3.5-17.0) ng/L Total Protein (6.5-8.0) g/dL Albumin (3.5-5.0) g/dL Urine Color Yellow Urine Appearance Clear Urine pH 8.0 (5.0-9.0) Ur Specific [place] 1.010 (1.005-1.025) Urine Protein Trace (Neg-Trace) mg/dL Urine Glucose (UA) Negative (Negative) mg/dL Urine Ketones 15 (Negative) mg/dL Urine Blood Negative (Negative) Urine Nitrite Negative (Negative) Ur Leukocyte Esterase Negative (Negative) ECG Data Attestation: I personally reviewed and interpreted this ECG as follows: Interpretation: sinus rhythm with a rate of 92. Nonspecific T-wave changes. Baseline artifact. Normal QRS axis. Discharge Plan Discharge Clinical Impression: Cyclical vomiting syndrome, Acute hypokalemia Patient Disposition: Home, Self-Care Instructions: Gastritis (ED), Hypokalemia (ED), Cyclic Vomiting Syndrome (ED) Additional Instructions: Use ondansetron as prescribed for nausea. Try to drink clear liquids such as Gatorade a few sips at a time throughout the day. Return for any new or worsened symptoms. Refrain from using marijuana, as it can cause severe vomiting such as you have had. Follow-up with your primary care physician Prescriptions: New ondansetron 4 mg tablet,disintegrating 4 mg PO Q6H PRN (Reason: nausea and vomiting) Qty: 10 0RF No Action lorazepam [Ativan] 1 mg tablet 1 mg PO BEDTIME PRN (Reason: anxiety) Qty: 20 0RF potassium chloride 10 mEq capsule, extended release 10 meq PO DAILY Qty: 3 0RF
[2021-11-29 03:55] LABS: MANUAL DIFF FLAG NO
[2021-11-29 03:56] LABS: Basophils Percent Auto 0.2 % (0-2); Eosinophils Percent Auto 0.1 % (0-4); Hematocrit 50.3 % (37.0-47.0); Imm Gran Abs Auto 0.08 X10*3/uL (0.00-0.03); Imm Gran Pct Auto 0.6 % (0.0-0.4); Lymphocytes Absolute Auto 1.8 X10*3/uL (1.2-4.9); Lymphocytes Percent Auto 13.1 % (20-40); Mean Corpuscular HGB Conc 35.8 g/dl (31.0-35.0); Mean Corpuscular Volume 97.7 fL (80.0-98.0); Monocytes Absolute Auto 0.7 X10*3/uL (0.1-1.2); Monocytes Percent Auto 5.2 % (2-11); Neutrophils Absolute Auto 10.9 x10*3/uL (2.0-8.3); Neutrophils Percent Auto 80.8 % (45-73); Platelet Count 306 X10*3/uL (160-400); Red Blood Count 5.15 X10*6/uL (4.20-5.50); Red Cell Distribution Width 13.9 % (11.0-16.0); White Blood Count 13.5 X10*3/uL (4.8-10.8)
[2021-11-29] MEDS: 0.9 % Sodium Chloride 1,000 ML 999 ML IV ×2 (04:02→06:08)
[2021-11-29] MEDS: LORazepam 0.5 MG TABLET PO (04:02)
[2021-11-29] MEDS: ondansetron HCL 4 MG/2 ML VIAL IVPUSH (04:02)
[2021-11-29 04:17] LABS: Alanine Aminotransferase 26 U/L (0-31); Albumin Level 4.2 g/dL (3.5-5.0); Alkaline Phosphatase 132 U/L (39-117); Aspartate Amino Transferase 25 U/L (5-31); Bilirubin Total 1.5 mg/dL (0.0-1.0); Blood Urea Nitrogen 6 mg/dL (9-16); Creatinine Clr Calc Pharmacy 81.2; Estimated Glomerular Filt Rate > 60; Glucose Random 142 mg/dL (60-115)
[2021-11-29 04:19] LABS: Troponin-I High Sensitivity 6.2 ng/L (<3.5-17.0)
[2021-11-29] MEDS: Haloperidol Lactate 5 MG/ML VIAL 1 MG IVPUSH (04:20)
[2021-11-29 04:27] LABS: Anion Gap 24 (12-20); Carbon Dioxide 25 mmol/L (22-29); Chloride 95 mmol/L (96-108); Potassium 2.8 mmol/L (3.3-5.1); Sodium 141 mmol/L (135-145)
[2021-11-29 05:54] VITALS: BP 179/113; PULSE 79; RESP 20; O2SAT 95
[2021-11-29 06:15] LABS: Appearance Urine Clear; Color Urine Yellow; Glucose Urine UA Negative (Negative); Leukocyte Esterase Urine Negative (Negative); Nitrite Urine Negative (Negative); Urine Blood Negative (Negative); Urine Ketones 15 mg/dL (Negative); Urine Protein Trace mg/dL (Neg-Trace)
[2021-11-29] MEDS: Potassium Chloride Packet 20 MEQ PACKET PO (06:15)
[2021-11-29] MEDS: Potassium Chloride/H20 10 MEQ/100 ML PIGGYBACK 100 MEQ IV ×2 (06:15→07:54)
[2021-11-29] MEDS: Metoclopramide HCl 10 MG/2 ML VIAL IVPUSH (06:23)
== END 2021-11-29 09:12 | disposition home or self-care (01) ==
PROVIDERS: Emergency Provider Emergency Medicine
DX: R11.15 Cyclical vomiting syndrome unrelated to migraine (principal); E87.6 Hypokalemia; M54.50 Low back pain, unspecified; I10 Essential (primary) hypertension; Z79.899 Other long term (current) drug therapy
CPT/HCPCS: 36415; 80053; 81003; 84484; 85025; 93005; 96361; 96365; 96375; 99284; J2405; J2765

== ENCOUNTER 2021-12-18 02:50 | Emergency (ER) | payer MEDICARE, MEDICAID, SELFPAY ==
[2021-12-18] VITALS (7 sets, daily range): BP systolic 142–199; BP diastolic 69–114; PULSE 50–102; RESP 14–22; TEMP 36.6; O2SAT 92–99; BMI 25.4
--- NOTE | 2021-12-18 07:35 | ECG_ITS ---
Test Reason : HEART RACING Blood Pressure : / mmHG Vent. Rate : 085 BPM Atrial Rate : 085 BPM P-R Int : 178 ms QRS Dur : 070 ms QT Int : 386 ms P-R-T Axes : 057 036 060 degrees QTc Int : 459 ms Normal sinus rhythm Nonspecific ST abnormality Inferior leads Lateral leads Abnormal ECG When compared with ECG of 29-NOV-2021 03:09, T wave inversion no longer evident in Anterior leads
--- NOTE | 2021-12-18 07:37 | ED.ANXIETY ---
HPI - Anxiety General Chief Complaint: Anxiety Stated Complaint: Anxiety/Heart racing Time Seen by Provider: 12/18/21 07:26 Source: patient Mode of arrival: ambulatory Limitations: no limitations History of Present Illness HPI narrative: 51-year-old female with history of coronary artery disease, ID with 2 stent placed, history of cerebral aneurysm. Patient has been feeling anxious for the past 10 hours usually she comes to the hospital when she feels the way, patient does feel depressed with no SI or HI no hallucination, patient admitted to stress in her life that is probably causing her symptoms, patient was the anxiety feel some chest pressure, no SOB. Patient had many hospital visit for similar symptoms. Related Data Previous Rx's Medication Instructions Recorded potassium chloride 10 mEq 10 meq PO DAILY #3 caps 02/04/21 capsule,extended release lorazepam 1 mg tablet (Ativan) 1 mg PO BEDTIME PRN anxiety #20 11/16/21 tabs ondansetron 4 mg disintegrating 4 mg PO Q6H PRN nausea and 11/29/21 tablet vomiting #10 tabs Allergies Allergy/AdvReac Type Severity Reaction Status Date / Time Iodinated Contrast Media Allergy Mild RASH Verified 10/12/21 03:04 [CONTRAST, IV] DECONGESTIONS Allergy Unknown INCREASED Uncoded 10/12/21 03:04 HEART RATE Review of Systems Review of Systems: All other systems are reviewed and are negative Constitutional: Reports as per HPI and Reports no additional constitutional complaints Eyes: Reports as per HPI and Reports no additional eye complaints Reports system reviewed and no additional complaints, except as documented Cardiovascular: Reports as per HPI and Reports no additional cardiovascular complaints Respiratory: Reports as per HPI and Reports no additional respiratory complaints Gastrointestinal: Reports as per HPI and Reports no additional gastrointestinal complaints Genitourinary: Reports no additional female genitourinary complaints Musculoskeletal: Reports no additional musculoskeletal complaints Skin/Breast: Reports system reviewed and no additional complaints, except as docu Psychiatric: Reports no additional psychiatric complaints Endocrine: Reports no additional endocrine complaints Hematologic/Lymphatic: Reports no additional hematologic/lymphatic complaints Allergic/Immunologic: Reports no additional allergic/immunologic complaints Reports system reviewed and no additional complaints, except as documented and Reports Abnormal speech present [facility] Past Medical History Medical History Cerebral aneurysm HTN (hypertension) Myocardial infarct Surgical History H/O craniotomy H/O heart artery stent Social History Social History Household Members: Significant Other Housing: Apartment Alcohol intake: unknown Patient Tobacco Use Status: Current everyday Tobacco user Use of substances other than those prescribed or required for medical reasons: No Substance Use Type: Marijuana Advance Directives: No Advance Directives Information Provided: Yes service: No Current occupational status: unemployed Physical Exam Vital Signs: Vital Signs: Last Vital Signs Temp 97.9 F 12/18/21 08:00 Pulse 55 12/18/21 13:16 Resp 16 12/18/21 13:16 BP 142/90 H 12/18/21 13:16 Pulse Ox 92 12/18/21 13:16 O2 Del Method 12/18/21 13:16 BMI result Body Mass Index 25.4 Vital signs have been reviewed as appeared to be correct. Blood pressure normal. Heart rate normal. Respiration rate normal. Temperature normal. Oxygen saturation normal. Appearance: Appear anxious, Alert. Oriented X3. No acute distress. Head: Normal external exam. Normocephalic. Atraumatic. No Kimble signs noted. No raccoon eyes noted Eyes: PERRLA. EOMI. Conjunctiva and sclera normal. Eyelids normal. ENT: TM's Normal. Pharynx normal. Uvula midline. Moist mucous membranes. No trismus noted. No drooling noted. No muffled voice noted. Neck: Normal inspection. Neck supple. FROM. No adenopathy. Thyroid Normal. No meningeal signs. No neck mass noted. CVS: Normal heart rate and rhythm. Heart sound normal. No murmurs noted. Pulses normal throughout. Respiratory: No respiratory distress. Painless inspiration. Breath sounds normal. No wheezes/rales/rhonchi noted. Chest nontender. No accessory muscle usage noted or decreased air movement noted. Abdomen: Soft and nontender. Bowel sounds normal in all 4 quadrants. No distention noted. No organomegaly noted. No visible injury noted. Back: No CVA tenderness. Full range of motion noted. Skin: Skin warm and dry. Normal skin color. Normal skin turgor. No rashes/lesions/lacerations noted. Extremities: No lower extremity edema. Extremities exhibit normal range of motion. Extremities nontender. Neuro: Oriented X 3. Cranial nerve exam: II-XII are grossly intact No motor deficit. No sensory deficit. Reflexes normal. Course Course Course Narrative: 51-year-old female came in for evaluation of anxiety, patient presented similar to previous presentation in the past with anxiety, patient was given Ativan and remained in the emergency department for 8 hours patient has been monitored with improvement of patient's symptoms, patient declined any SOB, no chest pain. Patient had a history of coronary artery disease patient has no chest pain, EKG showed no changes, 1st high sensitive troponin was elevated then 2nd troponin was 3 hours apart is decreasing. Patient would like to be discharged home. MDM - Anxiety Lab Data Attestation: I reviewed the patient's lab results. Result diagrams: 12/18/21 08:56 12/18/21 08:56 Labs: Lab Results 12/18/21 12/18/21 12/18/21 Range/Units 07:49 08:56 08:56 WBC 9.2 (4.8-10.8) X10*3/uL RBC 4.72 (4.20-5.50) X10*6/uL Hgb 16.4 H (12.0-16.0) g/dl Hct 46.7 (37.0-47.0) % MCV 98.9 H (80.0-98.0) fL MCH 34.7 H (27.0-33.0) pg MCHC 35.1 H (31.0-35.0) g/dl RDW 13.1 (11.0-16.0) % Plt Count 314 (160-400) X10*3/uL MPV 9.8 (9.4-12.3) fL Immature Gran % (Auto) 0.4 (0.0-0.4) % Neut % (Auto) 71.7 (45-73) % Lymph % (Auto) 20.6 (20-40) % Jenkins % (Auto) 5.5 (2-11) % Eos % (Auto) 1.5 (0-4) % Baso % (Auto) 0.3 (0-2) % Lymph # (Auto) 1.9 (1.2-4.9) X10*3/uL Jenkins # (Auto) 0.5 (0.1-1.2) X10*3/uL Eos # (Auto) 0.1 (0.0-0.4) X10*3/uL Baso # (Auto) 0.0 (0.0-0.2) X10*3/uL Abs Immat Gran (auto) 0.04 H (0.00-0.03) X10*3/uL Absolute Neuts (auto) 6.6 (2.0-8.3) x10*3/uL Absolute Nucleated RBC 0.000 (0.0-0.012) X10*3/uL Nucleated RBC % (auto) 0.0 (0.0-0.2) /100WBC Sodium 139 (135-145) mmol/L Potassium 3.8 D (3.3-5.1) mmol/L Chloride 97 (96-108) mmol/L Carbon Dioxide 30 H (22-29) mmol/L Anion Gap 16 (12-20) BUN 4 L (9-16) mg/dL Creatinine 0.59 (0.5-1.4) mg/dL Estim Creat Clear Calc 90.6 Estimated GFR > 60 Random Glucose 116 H (60-115) mg/dL Calcium 9.4 (8.4-10.2) mg/dL Troponin I High Sens (<3.5-17.0) ng/L Lipase 4 L (8-78) U/L Urine Color Yellow Urine Appearance Clear Urine pH 8.0 (5.0-9.0) Ur Specific [place] <= 1.005 (1.005-1.025) Urine Protein Negative (Neg-Trace) mg/dL Urine Glucose (UA) Negative (Negative) mg/dL Urine Ketones Negative (Negative) mg/dL Urine Blood Negative (Negative) Urine Nitrite Negative (Negative) Ur Leukocyte Esterase Negative (Negative) 12/18/21 12/18/21 Range/Units 09:15 13:01 WBC (4.8-10.8) X10*3/uL RBC (4.20-5.50) X10*6/uL Hgb (12.0-16.0) g/dl Hct (37.0-47.0) % MCV (80.0-98.0) fL MCH (27.0-33.0) pg MCHC (31.0-35.0) g/dl RDW (11.0-16.0) % Plt Count (160-400) X10*3/uL MPV (9.4-12.3) fL Immature Gran % (Auto) (0.0-0.4) % Neut % (Auto) (45-73) % Lymph % (Auto) (20-40) % Jenkins % (Auto) (2-11) % Eos % (Auto) (0-4) % Baso % (Auto) (0-2) % Lymph # (Auto) (1.2-4.9) X10*3/uL Jenkins # (Auto) (0.1-1.2) X10*3/uL Eos # (Auto) (0.0-0.4) X10*3/uL Baso # (Auto) (0.0-0.2) X10*3/uL Abs Immat Gran (auto) (0.00-0.03) X10*3/uL Absolute Neuts (auto) (2.0-8.3) x10*3/uL Absolute Nucleated RBC (0.0-0.012) X10*3/uL Nucleated RBC % (auto) (0.0-0.2) /100WBC Sodium (135-145) mmol/L Potassium (3.3-5.1) mmol/L Chloride (96-108) mmol/L Carbon Dioxide (22-29) mmol/L Anion Gap (12-20) BUN (9-16) mg/dL Creatinine (0.5-1.4) mg/dL Estim Creat Clear Calc Estimated GFR Random Glucose (60-115) mg/dL Calcium (8.4-10.2) mg/dL Troponin I High Sens 117.0 H* D 86.2 H* (<3.5-17.0) ng/L Lipase (8-78) U/L Urine Color Urine Appearance Urine pH (5.0-9.0) Ur Specific [place] (1.005-1.025) Urine Protein (Neg-Trace) mg/dL Urine Glucose (UA) (Negative) mg/dL Urine Ketones (Negative) mg/dL Urine Blood (Negative) Urine Nitrite (Negative) Ur Leukocyte Esterase (Negative) ECG Data Attestation: I personally reviewed and interpreted this ECG as follows: Interpretation: Normal sinus rhythm at 85 beats per minutes, normal axis deviation, normal intervals, no ST-T skin love changes. Discharge Plan Discharge Clinical Impression: Acute anxiety Patient Disposition: Home, Self-Care Instructions: Anxiety (ED) Prescriptions: No Action lorazepam [Ativan] 1 mg tablet 1 mg PO BEDTIME PRN (Reason: anxiety) Qty: 20 0RF ondansetron 4 mg tablet,disintegrating 4 mg PO Q6H PRN (Reason: nausea and vomiting) Qty: 10 0RF potassium chloride 10 mEq capsule, extended release 10 meq PO DAILY Qty: 3 0RF Referrals: Physician,Unknown J [Primary Care Provider] -
[2021-12-18] MEDS: LORazepam 1 MG TABLET 2 MG PO (07:46)
[2021-12-18 07:55] LABS: Appearance Urine Clear; Color Urine Yellow; Glucose Urine UA Negative (Negative); Leukocyte Esterase Urine Negative (Negative); Nitrite Urine Negative (Negative); Specific Gravity - Urine <= 1.005 (1.005-1.025); Urine Blood Negative (Negative); Urine Ketones Negative (Negative); Urine Protein Negative (Neg-Trace)
[2021-12-18 09:02] LABS: MANUAL DIFF FLAG NO
[2021-12-18 09:06] LABS: Basophils Percent Auto 0.3 % (0-2); Eosinophils Absolute Auto 0.1 X10*3/uL (0.0-0.4); Eosinophils Percent Auto 1.5 % (0-4); Hematocrit 46.7 % (37.0-47.0); Hemoglobin 16.4 g/dl (12.0-16.0); Imm Gran Abs Auto 0.04 X10*3/uL (0.00-0.03); Imm Gran Pct Auto 0.4 % (0.0-0.4); Lymphocytes Absolute Auto 1.9 X10*3/uL (1.2-4.9); Lymphocytes Percent Auto 20.6 % (20-40); Mean Corpuscular HGB Conc 35.1 g/dl (31.0-35.0); Mean Corpuscular Hemoglobin 34.7 pg (27.0-33.0); Mean Corpuscular Volume 98.9 fL (80.0-98.0); Mean Platelet Volume 9.8 fL (9.4-12.3); Monocytes Absolute Auto 0.5 X10*3/uL (0.1-1.2); Monocytes Percent Auto 5.5 % (2-11); Neutrophils Absolute Auto 6.6 x10*3/uL (2.0-8.3); Neutrophils Percent Auto 71.7 % (45-73); Platelet Count 314 X10*3/uL (160-400); Red Blood Count 4.72 X10*6/uL (4.20-5.50); Red Cell Distribution Width 13.1 % (11.0-16.0); White Blood Count 9.2 X10*3/uL (4.8-10.8)
[2021-12-18 09:32] LABS: Anion Gap 16 (12-20); Blood Urea Nitrogen 4 mg/dL (9-16); Calcium 9.4 mg/dL (8.4-10.2); Carbon Dioxide 30 mmol/L (22-29); Chloride 97 mmol/L (96-108); Creatinine Clr Calc Pharmacy 90.6; Estimated Glomerular Filt Rate > 60; Glucose Random 116 mg/dL (60-115); Lipase 4 U/L (8-78); Potassium 3.8 mmol/L (3.3-5.1); Sodium 139 mmol/L (135-145)
[2021-12-18 13:32] LABS: Troponin-I High Sensitivity 86.2 ng/L (<3.5-17.0)
== END 2021-12-18 14:59 | disposition home or self-care (01) ==
PROVIDERS: Emergency Provider Emergency Medicine
DX: F41.1 Generalized anxiety disorder (principal); F43.0 Acute stress reaction; R00.2 Palpitations; F17.200 Nicotine dependence, unspecified, uncomplicated; Z79.899 Other long term (current) drug therapy; Z71.6 Tobacco abuse counseling
CPT/HCPCS: 36415; 80048; 81003; 83690; 84484; 85025; 93005; 99284

== ENCOUNTER 2022-01-15 10:14 | Emergency (ER) | payer MEDICARE, MEDICAID, SELFPAY ==
--- NOTE | 2022-01-15 | ECG_ITS ---
Test Reason : CHEST PRESSURE Blood Pressure : / mmHG Vent. Rate : 098 BPM Atrial Rate : 098 BPM P-R Int : 136 ms QRS Dur : 070 ms QT Int : 520 ms P-R-T Axes : 063 039 062 degrees QTc Int : 663 ms Normal sinus rhythm with sinus arrhythmia Nonspecific ST abnormality Abnormal ECG When compared with ECG of 18-DEC-2021 03:00, QT has lengthened Referred By: Generic ED Physician Electronically Signed By:MINERVA VALDES MD
[2022-01-15 10:39] VITALS: BP 165/100; PULSE 76; RESP 24; TEMP 36.6; O2SAT 100; BMI 25.4
[2022-01-15 11:15] LABS: MANUAL DIFF FLAG NO
[2022-01-15 11:21] LABS: Basophils Absolute Auto 0.1 X10*3/uL (0.0-0.2); Basophils Percent Auto 0.4 % (0-2); Eosinophils Percent Auto 0.2 % (0-4); Hematocrit 50.3 % (37.0-47.0); Hemoglobin 17.7 g/dl (12.0-16.0); Imm Gran Abs Auto 0.28 X10*3/uL (0.00-0.03); Imm Gran Pct Auto 1.5 % (0.0-0.4); Lymphocytes Percent Auto 15.8 % (20-40); Mean Corpuscular HGB Conc 35.2 g/dl (31.0-35.0); Mean Corpuscular Hemoglobin 35.2 pg (27.0-33.0); Mean Platelet Volume 9.7 fL (9.4-12.3); Neutrophils Absolute Auto 14.5 x10*3/uL (2.0-8.3); Neutrophils Percent Auto 77.1 % (45-73); Platelet Count 373 X10*3/uL (160-400); Red Blood Count 5.03 X10*6/uL (4.20-5.50); Red Cell Distribution Width 13.8 % (11.0-16.0); White Blood Count 18.9 X10*3/uL (4.8-10.8)
[2022-01-15 11:31] LABS: COVID-19 Test Negative (Negative); IDNOW Serial# 16C4AD1C
[2022-01-15 11:42] LABS: Troponin-I High Sensitivity < 3.5 ng/L (<3.5-17.0)
[2022-01-15 11:49] LABS: Alanine Aminotransferase 43 U/L (0-31); Albumin Level 4.3 g/dL (3.5-5.0); Alkaline Phosphatase 122 U/L (39-117); Anion Gap 24 (12-20); Aspartate Amino Transferase 59 U/L (5-31); Bilirubin Direct 0.4 mg/dL (0.0-0.5); Bilirubin Total 0.9 mg/dL (0.0-1.0); Blood Urea Nitrogen 3 mg/dL (9-16); Calcium 9.9 mg/dL (8.4-10.2); Carbon Dioxide 23 mmol/L (22-29); Chloride 98 mmol/L (96-108); Creatinine Clr Calc Pharmacy 71.2; Estimated Glomerular Filt Rate > 60; Glucose Random 183 mg/dL (60-115); Lipase 22 U/L (8-78); Potassium 3.8 mmol/L (3.3-5.1); Sodium 141 mmol/L (135-145); Total Protein 7.9 g/dL (6.5-8.0)
== END 2022-01-15 11:54 | disposition left against medical advice (07) ==
PROVIDERS: Emergency Provider Emergency Medicine
DX: R07.89 Other chest pain (principal); R11.2 Nausea with vomiting, unspecified; Z20.822 Contact with and (suspected) exposure to COVID-19; Z79.899 Other long term (current) drug therapy
CPT/HCPCS: 36415; 80048; 80076; 83690; 84484; 85025; 87635; 93005; 99281; 99283

== ENCOUNTER 2022-04-11 17:14 | Emergency (ER) | payer OTHER, SELFPAY ==
--- NOTE | ~2022-04-11 | CT_ITS ---
EXAMINATION: CT MAXILLOFACIAL WITHOUT CONTRAST CLINICAL INFORMATION: Lower jaw pain. Abscess of the lower jaw. COMPARISON: CT head from 03/17/2019. TECHNIQUE: Multidetector helical imaging was performed in the axial plane with generation of coronal and sagittal reformatted images. This CT examination was performed using dose optimization techniques as appropriate, variously including the following: *Automated exposure control *Adjustment of mA and/or kV according to patient size (this includes techniques or standardized protocols for targeted exams where dose is matched to indication/reason for exam; i.e. extremities or head) *Use of iterative reconstruction technique DLP: 298 mGy-cm FINDINGS: FRONTAL SINUSES AND DRAINAGE PATHWAYS: The frontal sinuses are mildly hypoplastic. Otherwise, the frontal sinuses are clear. The frontoethmoidal recesses are patent. MAXILLARY SINUSES AND DRAINAGE PATHWAYS: Minimal mucosal thickening of the maxillary sinuses. The maxillary ostia and infundibula are patent. ETHMOID SINUSES: Mild mucosal thickening of the ethmoid air cells. The ethmoid roofs appear symmetric and intact. SPHENOID SINUS AND DRAINAGE PATHWAYS: Minimal mucosal thickening of the sphenoid sinus. The sphenoethmoidal recesses are patent. The carotid canals are normally covered by bone. NASAL PASSAGE: Mild mucosal thickening of the nasal passages. Mild leftward nasal septal deviation. ORBITS: Normal appearance of the osseous orbits. The lamina papyracea are intact. No significant preseptal or retrobulbar edema. Normal appearance of the globes. Normal symmetric appearance of the extraocular musculature. No abnormalities of the intraconal or extraconal adipose tissue. Normal appearance of the optic nerve sheaths. Normal appearance of the lacrimal glands. No orbital fluid collections. No abnormalities of the orbital apices. TEMPOROMANDIBULAR JOINTS: The temporomandibular joints remain well aligned. Mild degenerative arthropathy of the temporomandibular joints. No abnormal collection associated with the temporomandibular joints. ADDITIONAL RELEVANT FINDINGS: No evidence of maxillofacial bone fractures. The zygomatic arches remain intact. No nasal bone fracture. No evidence of mandibular or maxillary fracture. Extensive multifocal odontogenic enamel erosions. Periapical lucencies associated with the maxillary left canine, mandibular bilateral premolars, and mandibular right-sided molars. Moderate soft tissue edema along the left-sided body of the mandible with phlegmonous fat stranding surrounding the deep and superficial adipose tissue edematous left aspect of the platysma muscle. No overtly demonstrated discrete drainable fluid collection on this limited exam without contrast. The parapharyngeal adipose tissue is maintained. No discrete lesion demonstrated within the intrinsic tissues of the tongue. Changes of prior mesh reconstruction of the left orbital wall and temporal fossa. Prior metallic coil embolization of 3 central intracranial aneurysms. Otherwise, limited evaluation of the intracranial structures without significant abnormalities. CT/CT facial bones wo IV con IMPRESSION: Extensive multifocal odontogenic disease. Moderate soft tissue edema along the left-sided body of the mandible with phlegmonous fat stranding surrounding the edematous left aspect of the platysma muscle. No overtly demonstrated discrete drainable fluid collection on this limited exam without contrast.
[2022-04-11 17:43] VITALS: BP 139/68; PULSE 90; RESP 16; TEMP 36.6; O2SAT 96; BMI 23.0
--- NOTE | 2022-04-11 17:47 | ED.GENADULT ---
HPI - General Adult General Chief complaint: Dental/Oral <LALITA Cabrera - Last Filed: 04/17/22 12:35> Stated complaint: Dental pain/Facial Swelling <LALITA Cabrera - Last Filed: 04/17/22 12:35> Time Seen by Provider: 04/11/22 19:12 <LALITA Cabrera - Last Filed: 04/17/22 12:35> Source: patient <LALITA Borja - Last Filed: 04/12/22 00:45> Mode of arrival: ambulatory <LALITA Borja - Last Filed: 04/12/22 00:45> Limitations: no limitations <LALITA Borja Last Filed: 04/12/22 00:45> History of Present Illness HPI narrative: This is a 51-year-old female history of hypertension presenting to the emergency department with teeth pain and lower jaw pain, she tells me this has been going on for 3 days, patient was evaluated by dentist 2 days ago placed her on clindamycin for suspected abscess in mouth, she tells me now her jaw hurts bilaterally to the lower aspect. She reports that her jaw but appears very swollen and it is hurting her. Denies any recent dental work. They told her that before she could get dental work she needed to be on antibiotics. Patient denies fevers, chills, chest pain, shortness of breath, nausea, vomiting, headache, vision changes, dizziness, weakness, difficulty speaking or breathing. <LALITA Borja Last Filed: 04/12/22 00:45> Related Data Home medications: Home Medications Medication Instructions Recorded Confirmed amlodipine 10 mg tablet (Norvasc) 20 mg 04/11/22 aspirin 81 mg tablet,delayed 1 tab PO DAILY 04/11/22 04/11/22 release atorvastatin 40 mg tablet 2 tab PO DAILY 04/11/22 04/11/22 escitalopram oxalate 10 mg tablet mg PO 04/11/22 lisinopril 40 mg tablet 1 tab PO DAILY 04/11/22 04/11/22 metoprolol succinate 50 mg 1 tab PO DAILY 04/11/22 04/11/22 tablet,extended release 24 hr quetiapine 50 mg tablet 1 tab PO BEDTIME 04/11/22 04/11/22 <LALITA Cabrera - Last Filed: 04/17/22 12:35> Allergies/adverse reactions: Allergies Allergy/AdvReac Type Severity Reaction Status Date / Time Iodinated Contrast Media Allergy Mild RASH Verified 10/12/21 03:04 [CONTRAST, IV] DECONGESTIONS Allergy Unknown INCREASED Uncoded 10/12/21 03:04 HEART RATE <LALITA Cabrera - Last Filed: 04/17/22 12:35> Review of Systems Review of Systems: Constitutional : No Weight loss, No Fever, No Chills, No Fatigue, No Malaise ENT/Mouth : No sore throat, No Rhinorrhea Eyes: No Eye Pain, No Swelling, No Redness Cardiovascular : No Chest Pain, No SOB, No Dyspnea on Exertion, No Orthopnea, No Edema, No Palpitations Respiratory : No Cough, No Sputum, No Wheezing Gastrointestinal : No Nausea, No Vomiting, No Diarrhea, No Constipation, No abdominal Pain, No Hematochezia, No Melena Genitourinary : No Dysuria, No Urinary Frequency, No Hematuria, Musculoskeletal : No joint pain, No Myalgias, No Joint Swelling Skin : No Skin Lesions, No rash Neuro : No Weakness, No Numbness, No Dizziness, No Headache Psych : No Anxiety/Panic, No Depression All other systems reviewed and are negative <LALITA Borja - Last Filed: 04/12/22 00:45> Yes all other systems are reviewed and are negative <LALITA Borja - Last Filed: 04/12/22 00:45> [facility] Past Medical History Attestation statement: The following information was validated with the patient. <LALITA Borja - Last Filed: 04/12/22 00:45> Source: old records reviewed and nursing notes reviewed <LALITA Borja - Last Filed: 04/12/22 00:45> Medical History: Medical History Cerebral aneurysm HTN (hypertension) Myocardial infarct <LALITA Cabrera - Last Filed: 04/17/22 12:35> Surgical History: Surgical History H/O craniotomy H/O heart artery stent <LALITA Cabrera - Last Filed: 04/17/22 12:35> Social History Social History: Social History Household Members: Significant Other Housing: Apartment Alcohol intake: unknown Patient Tobacco Use Status: Current everyday Tobacco user Substance Use Type: Marijuana Advance Directives: No Advance Directives Information Provided: No service: No Current occupational status: unemployed <LALITA Cabrera - Last Filed: 04/17/22 12:35> Physical Exam ED Vital Signs: Vital Signs - 24 hr 04/11/22 17:43 04/11/22 19:16 Temperature 97.9 F 98.1 F Pulse Rate 90 80 Respiratory Rate 16 14 Blood Pressure 139/68 168/62 H Pulse Oximetry 96 96 Oxygen Delivery Method Room Air Room Air BMI result Body Mass Index 23.0 <LALITA Cabrera - Last Filed: 04/17/22 12:35> Vital Signs - 24 hr 04/11/22 17:43 04/11/22 19:16 Temperature 97.9 F 98.1 F Pulse Rate 90 80 Respiratory Rate 16 14 Blood Pressure 139/68 168/62 H Pulse Oximetry 96 96 Oxygen Delivery Method Room Air Room Air BMI result Body Mass Index 23.0 vss <LALITA Borja - Last Filed: 04/12/22 00:45> Appearance: Alert.? Oriented X3.? No acute distress.? Speaking in full sentences controlling secretions well. Head: Normocephalic, atraumatic, no step-offs or deformities Eyes: Pupils equal, round and reactive to light.? ENT: Pharynx normal. Patient with poor dentition throughout multiple broken teeth, dental caries, with halitosis. Lower molars appear to be rotting away. Patient is noted to have swelling overlying her entire lower gum/submandibular region. With overlying warmth and erythema. No trismus. Patent airway. No evidence of abscess on my examination. Neck: Normal inspection.? Neck supple.? CVS: Normal heart rate and rhythm.? Pulses normal.? Respiratory: No respiratory distress.? Breath sounds normal.? Abdomen: Soft and nontender.? Skin: Skin warm and dry.? Normal skin color.? Normal skin turgor.? Extremities: No lower extremity edema.? No calf ttp. 5/5 strength to bilateral upper and lower extremities Neuro: Oriented X 3.? No motor deficit.? No sensory deficit. CN 2-12 intact <LALITA Borja - Last Filed: 04/12/22 00:45> Course Course Course Narrative: RME: patient presents to the ED for bilateal jaw pain and swelling that has worsens since yesterday. patient was placed on antibiotics clindamycin yesterday. Patient was seen by the dentist today and referred to the ED for further evaluation. Oral exam shows bilateral lower molars decay tooth with yellow pus collection. on physical exam bilateral submnaidublar swollen/more on the left. WIll oder labs incase imaging is ordered <LALITA Cabrera - Last Filed: 04/17/22 12:35> Reevaluation(s) Reevaluation #1: CBC with elevated white blood cell count 16.2. Chemistry with no acute electrolyte abnormalities requiring intervention. Negative lactic acid. CT of the face with extensive multifocal odontoid disease. Moderate soft tissue edema along the left side body of the mandible with phlegmonous fat stranding surrounding the edematous left aspect of the platysma muscle. No drainable fluid collection. I do not suspect dental abscess at this time, I did have my attending evaluate this patient who agrees that this is likely facial cellulitis localized to the left submandibular region closely however also involves parts of the right submandibular region. Patient does not have compromise of her airway, controlling secretions well, speaking in full sentences saturating 96% on room air without difficulty. Patient was given Zosyn and fluids. She will require IV antibiotics as she is currently taking clindamycin with little to no relief. Discussed this case with hospitalist who will admit for IV antibiotics. Again no abscess therefore I do not think this patient requires a facility with ears nose and throat. There is no compromise of the airway. To mention, patient refused IV contrast she states she is allergic, did not want premedication therefore it was done without contrast. <LALITA Borja - Last Filed: 04/12/22 00:45> Time: 22:56 <LALITA Borja Last Filed: 04/12/22 00:45> Reevaluation #2: To note I did initially try to transfer this case to [facility] however closed ENT transfers <LALITA Borja - Last Filed: 04/12/22 00:45> Time: 22:57 <LALITA Borja - Last Filed: 04/12/22 00:45> Medications Administered Discontinued Medications Generic Name Dose Route Start Last Admin Trade Name Skylar PRN Reason Stop Dose Admin Dexamethasone Sodium Phosphate 6 mg 04/11/22 21:55 04/11/22 22:06 Dexamethasone Sod Phosphate 4 Mg/Ml Vial IVPUSH 04/11/22 21:56 6 mg ONCE ONE Administration Diphenhydramine HCl 25 mg 04/11/22 19:52 04/11/22 20:59 Diphenhydramine Hcl 50 Mg/Ml Vial IVPUSH 04/11/22 19:53 25 mg ONCE ONE Administration Piperacillin Sod/Tazobactam 50 mls @ 100 mls/hr 04/11/22 19:51 04/11/22 21:50 Sod 3.375 gm/ Sodium Chloride IV 04/11/22 20:20 Infused ONCE ONE Infusion Sodium Chloride 1,000 mls @ 999 mls/hr 04/11/22 20:00 04/11/22 22:06 Ns IV 04/11/22 21:00 Infused .Q1H1M JENNY Infusion Sodium Chloride 1,000 mls @ 999 mls/hr 04/11/22 20:00 04/11/22 22:06 Ns IV 04/11/22 21:00 Infused .Q1H1M JENNY Infusion Sodium Chloride 1,000 mls @ 999 mls/hr 04/11/22 20:00 04/11/22 22:18 Ns IV 04/11/22 21:00 Infused .Q1H1M JENNY Infusion Lidocaine HCl 5 ml 04/11/22 22:11 04/11/22 22:54 Lidocaine Hcl 2 % Mpf 5 Ml Vial INFILTRATI 04/11/22 22:12 Not Given ONCE ONE Lidocaine HCl 4 ml 04/11/22 22:53 04/11/22 22:55 Lidocaine Hcl 1 % 20 Ml Vial INFILTRATI 04/11/22 22:54 4 ml ONCE ONE Administration Morphine Sulfate 4 mg 04/11/22 21:54 04/11/22 22:07 Morphine Sulfate 4 Mg/Ml Cartridge IVPUSH 04/11/22 21:55 4 mg ONCE ONE Administration Protocol <LALITA Cabrera - Last Filed: 04/17/22 12:35> Medications Administered Discontinued Medications Generic Name Dose Route Start Last Admin Trade Name Skylar PRN Reason Stop Dose Admin Dexamethasone Sodium Phosphate 6 mg 04/11/22 21:55 04/11/22 22:06 Dexamethasone Sod Phosphate 4 Mg/Ml Vial IVPUSH 04/11/22 21:56 6 mg ONCE ONE Administration Diphenhydramine HCl 25 mg 04/11/22 19:52 04/11/22 20:59 Diphenhydramine Hcl 50 Mg/Ml Vial IVPUSH 04/11/22 19:53 25 mg ONCE ONE Administration Piperacillin Sod/Tazobactam 50 mls @ 100 mls/hr 04/11/22 19:51 04/11/22 21:50 Sod 3.375 gm/ Sodium Chloride IV 04/11/22 20:20 Infused ONCE ONE Infusion Sodium Chloride 1,000 mls @ 999 mls/hr 04/11/22 20:00 04/11/22 22:06 Ns IV 04/11/22 21:00 Infused .Q1H1M JENNY Infusion Sodium Chloride 1,000 mls @ 999 mls/hr 04/11/22 20:00 04/11/22 22:06 Ns IV 04/11/22 21:00 Infused .Q1H1M JENNY Infusion Sodium Chloride 1,000 mls @ 999 mls/hr 04/11/22 20:00 04/11/22 22:18 Ns IV 04/11/22 21:00 Infused .Q1H1M JENNY Infusion Lidocaine HCl 5 ml 04/11/22 22:11 04/11/22 22:54 Lidocaine Hcl 2 % Mpf 5 Ml Vial INFILTRATI 04/11/22 22:12 Not Given ONCE ONE Lidocaine HCl 4 ml 04/11/22 22:53 04/11/22 22:55 Lidocaine Hcl 1 % 20 Ml Vial INFILTRATI 04/11/22 22:54 4 ml ONCE ONE Administration Morphine Sulfate 4 mg 04/11/22 21:54 04/11/22 22:07 Morphine Sulfate 4 Mg/Ml Cartridge IVPUSH 04/11/22 21:55 4 mg ONCE ONE Administration Protocol <LALITA Borja - Last Filed: 04/12/22 00:45> Medical Decision Making Medical Decision Making [facility] Narrative: 1999 51-year-old female presents with dental pain to all or tea and lower jaw pain and swelling. Currently on clindamycin. Physical exam significant for Pharynx normal. Patient with poor dentition throughout multiple broken teeth, dental caries, with halitosis. Lower molars appear to be rotting away. Patient is noted to have swelling overlying her entire lower gum. With overlying warmth and erythema. No trismus. Patent airway. No evidence of abscess on my examination. Concerns for multiple infected teeth to the lower gum causing possible cellulitis to jaw. Unable to identify any abscesses. No signs of airway compromise. Plan at this time basic labs, blood culture, lactic acid, fluids, Zosyn, CT soft tissues. <LALITA Borja - Last Filed: 04/12/22 00:45> Differential Diagnosis Differential Diagnoses: The differential diagnosis associated with the presentation includes <LALITA Borja - Last Filed: 04/12/22 00:45> Concerns for multiple infected teeth to the lower gum causing possible cellulitis to jaw. Unable to identify any abscesses. No signs of airway compromise. <LALITA Borja Last Filed: 04/12/22 00:45> Admission/Observation Consideration of admission/observation: Escalation of care including admission/observation considered <LALITA Borja Last Filed: 04/12/22 00:45> Lab Data [facility] Lab Attestation statement: I reviewed the patient's lab results. <LALITA Borja Last Filed: 04/12/22 00:45> Result Diagrams: 04/11/22 18:05 04/11/22 18:05 <LALITA Cabrera - Last Filed: 04/17/22 12:35> Labs: Lab Results 04/11/22 04/11/22 04/11/22 Range/Units 18:05 18:05 20:55 WBC 16.2 H (4.8-10.8) X10*3/uL RBC 4.09 L (4.20-5.50) X10*6/uL Hgb 14.6 (12.0-16.0) g/dl Hct 42.5 (37.0-47.0) % MCV 103.9 H (80.0-98.0) fL MCH 35.7 H (27.0-33.0) pg MCHC 34.4 (31.0-35.0) g/dl RDW 12.9 (11.0-16.0) % Plt Count 320 (160-400) X10*3/uL MPV 10.1 (9.4-12.3) fL Immature Gran % (Auto) 1.2 H (0.0-0.4) % Neut % (Auto) 64.0 (45-73) % Lymph % (Auto) 22.9 (20-40) % [place] % (Auto) 6.1 (2-11) % Eos % (Auto) 5.4 H (0-4) % Baso % (Auto) 0.4 (0-2) % Lymph # (Auto) 3.7 (1.2-4.9) X10*3/uL [place] # (Auto) 1.0 (0.1-1.2) X10*3/uL Eos # (Auto) 0.9 H (0.0-0.4) X10*3/uL Baso # (Auto) 0.1 (0.0-0.2) X10*3/uL Abs Immat Gran (auto) 0.20 H (0.00-0.03) X10*3/uL Absolute Neuts (auto) 10.4 H (2.0-8.3) x10*3/uL Absolute Nucleated RBC 0.000 (0.0-0.012) X10*3/uL Nucleated RBC % (auto) 0.0 (0.0-0.2) /100WBC Sodium 140 (135-145) mmol/L Potassium 3.8 (3.3-5.1) mmol/L Chloride 102 (96-108) mmol/L Carbon Dioxide 28 (22-29) mmol/L Anion Gap 14 (12-20) BUN 10 (9-16) mg/dL Creatinine 0.72 (0.5-1.4) mg/dL Estim Creat Clear Calc 76.4 Estimated GFR > 60 Random Glucose 96 (60-115) mg/dL Lactic Acid 1.0 (0.5-2.0) mmol/L Calcium 9.3 D (8.4-10.2) mg/dL Total Bilirubin 0.4 (0.0-1.0) mg/dL AST 16 (5-31) U/L ALT 10 (0-31) U/L Alkaline Phosphatase 99 (39-117) U/L Total Protein 6.5 (6.5-8.0) g/dL Albumin 3.8 (3.5-5.0) g/dL COVID-19 (ELIN) (Negative) COVID-19 Clin Com 04/11/22 Range/Units 23:18 WBC (4.8-10.8) X10*3/uL RBC (4.20-5.50) X10*6/uL Hgb (12.0-16.0) g/dl Hct (37.0-47.0) % MCV (80.0-98.0) fL MCH (27.0-33.0) pg MCHC (31.0-35.0) g/dl RDW (11.0-16.0) % Plt Count (160-400) X10*3/uL MPV (9.4-12.3) fL Immature Gran % (Auto) (0.0-0.4) % Neut % (Auto) (45-73) % Lymph % (Auto) (20-40) % [place] % (Auto) (2-11) % Eos % (Auto) (0-4) % Baso % (Auto) (0-2) % Lymph # (Auto) (1.2-4.9) X10*3/uL [place] # (Auto) (0.1-1.2) X10*3/uL Eos # (Auto) (0.0-0.4) X10*3/uL Baso # (Auto) (0.0-0.2) X10*3/uL Abs Immat Gran (auto) (0.00-0.03) X10*3/uL Absolute Neuts (auto) (2.0-8.3) x10*3/uL Absolute Nucleated RBC (0.0-0.012) X10*3/uL Nucleated RBC % (auto) (0.0-0.2) /100WBC Sodium (135-145) mmol/L Potassium (3.3-5.1) mmol/L Chloride (96-108) mmol/L Carbon Dioxide (22-29) mmol/L Anion Gap (12-20) BUN (9-16) mg/dL Creatinine (0.5-1.4) mg/dL Estim Creat Clear Calc Estimated GFR Random Glucose (60-115) mg/dL Lactic Acid (0.5-2.0) mmol/L Calcium (8.4-10.2) mg/dL Total Bilirubin (0.0-1.0) mg/dL AST (5-31) U/L ALT (0-31) U/L Alkaline Phosphatase (39-117) U/L Total Protein (6.5-8.0) g/dL Albumin (3.5-5.0) g/dL COVID-19 (ELIN) Negative (Negative) COVID-19 Clin Com See Note <LALITA Cabrera - Last Filed: 04/17/22 12:35> Lab Results 04/11/22 04/11/22 04/11/22 Range/Units 18:05 18:05 20:55 WBC 16.2 H (4.8-10.8) X10*3/uL RBC 4.09 L (4.20-5.50) X10*6/uL Hgb 14.6 (12.0-16.0) g/dl Hct 42.5 (37.0-47.0) % MCV 103.9 H (80.0-98.0) fL MCH 35.7 H (27.0-33.0) pg MCHC 34.4 (31.0-35.0) g/dl RDW 12.9 (11.0-16.0) % Plt Count 320 (160-400) X10*3/uL MPV 10.1 (9.4-12.3) fL Immature Gran % (Auto) 1.2 H (0.0-0.4) % Neut % (Auto) 64.0 (45-73) % Lymph % (Auto) 22.9 (20-40) % [place] % (Auto) 6.1 (2-11) % Eos % (Auto) 5.4 H (0-4) % Baso % (Auto) 0.4 (0-2) % Lymph # (Auto) 3.7 (1.2-4.9) X10*3/uL [place] # (Auto) 1.0 (0.1-1.2) X10*3/uL Eos # (Auto) 0.9 H (0.0-0.4) X10*3/uL Baso # (Auto) 0.1 (0.0-0.2) X10*3/uL Abs Immat Gran (auto) 0.20 H (0.00-0.03) X10*3/uL Absolute Neuts (auto) 10.4 H (2.0-8.3) x10*3/uL Absolute Nucleated RBC 0.000 (0.0-0.012) X10*3/uL Nucleated RBC % (auto) 0.0 (0.0-0.2) /100WBC Sodium 140 (135-145) mmol/L Potassium 3.8 (3.3-5.1) mmol/L Chloride 102 (96-108) mmol/L Carbon Dioxide 28 (22-29) mmol/L Anion Gap 14 (12-20) BUN 10 (9-16) mg/dL Creatinine 0.72 (0.5-1.4) mg/dL Estim Creat Clear Calc 76.4 Estimated GFR > 60 Random Glucose 96 (60-115) mg/dL Lactic Acid 1.0 (0.5-2.0) mmol/L Calcium 9.3 D (8.4-10.2) mg/dL Total Bilirubin 0.4 (0.0-1.0) mg/dL AST 16 (5-31) U/L ALT 10 (0-31) U/L Alkaline Phosphatase 99 (39-117) U/L Total Protein 6.5 (6.5-8.0) g/dL Albumin 3.8 (3.5-5.0) g/dL COVID-19 (ELIN) (Negative) COVID-19 Clin Com 04/11/22 Range/Units 23:18 WBC (4.8-10.8) X10*3/uL RBC (4.20-5.50) X10*6/uL Hgb (12.0-16.0) g/dl Hct (37.0-47.0) % MCV (80.0-98.0) fL MCH (27.0-33.0) pg MCHC (31.0-35.0) g/dl RDW (11.0-16.0) % Plt Count (160-400) X10*3/uL MPV (9.4-12.3) fL Immature Gran % (Auto) (0.0-0.4) % Neut % (Auto) (45-73) % Lymph % (Auto) (20-40) % [place] % (Auto) (2-11) % Eos % (Auto) (0-4) % Baso % (Auto) (0-2) % Lymph # (Auto) (1.2-4.9) X10*3/uL [place] # (Auto) (0.1-1.2) X10*3/uL Eos # (Auto) (0.0-0.4) X10*3/uL Baso # (Auto) (0.0-0.2) X10*3/uL Abs Immat Gran (auto) (0.00-0.03) X10*3/uL Absolute Neuts (auto) (2.0-8.3) x10*3/uL Absolute Nucleated RBC (0.0-0.012) X10*3/uL Nucleated RBC % (auto) (0.0-0.2) /100WBC Sodium (135-145) mmol/L Potassium (3.3-5.1) mmol/L Chloride (96-108) mmol/L Carbon Dioxide (22-29) mmol/L Anion Gap (12-20) BUN (9-16) mg/dL Creatinine (0.5-1.4) mg/dL Estim Creat Clear Calc Estimated GFR Random Glucose (60-115) mg/dL Lactic Acid (0.5-2.0) mmol/L Calcium (8.4-10.2) mg/dL Total Bilirubin (0.0-1.0) mg/dL AST (5-31) U/L ALT (0-31) U/L Alkaline Phosphatase (39-117) U/L Total Protein (6.5-8.0) g/dL Albumin (3.5-5.0) g/dL COVID-19 (ELIN) Negative (Negative) COVID-19 Clin Com See Note <LALITA Borja - Last Filed: 04/12/22 00:45> Core Measures AMI core measures followed: Yes <LALITA Borja - Last Filed: 04/12/22 00:45> Measure exclusions: not indicated <LALITA Borja - Last Filed: 04/12/22 00:45> Critical Care Time Critical Care Time Critical Care Time: No <LALITA Borja - Last Filed: 04/12/22 00:45> Discharge Plan Discharge Clinical Impression: Cellulitis of face, Poor dentition <LALITA Cabrera - Last Filed: 04/17/22 12:35> Patient Disposition: [facility] <LALITA Cabrera - Last Filed: 04/17/22 12:35> Transfer Details: Transfer to [facility] ED to the service of Dr. Domonique WISE <LALITA Cabrera - Last Filed: 04/17/22 12:35> Transfer to [facility] ED to the service of Dr. Domonique WISE <LALITA Borja - Last Filed: 04/12/22 00:45> Prescriptions: No Action lisinopril 40 mg tablet 1 tab PO DAILY atorvastatin 40 mg tablet 2 tab PO DAILY metoprolol succinate 50 mg tablet extended release 24 hr 1 tab PO DAILY aspirin 81 mg tablet,delayed release (/EC) 1 tab PO DAILY amlodipine [Norvasc] 10 mg Tablet 20 mg escitalopram oxalate 10 mg tablet PO quetiapine 50 mg tablet 1 tab PO BEDTIME <LALITA Cabrera Last Filed: 04/17/22 12:35> Interventions: Acute Care Transfer Worksheet (ED) Last Done: 04/12/22 03:06 <LALITA Cabrera Last Filed: 04/17/22 12:35> Discharge Date/Time: 04/12/22 03:07 <LALITA Cabrera - Last Filed: 04/17/22 12:35>
[2022-04-11 18:08] LABS: MANUAL DIFF FLAG NO
[2022-04-11 18:18] LABS: Basophils Absolute Auto 0.1 X10*3/uL (0.0-0.2); Basophils Percent Auto 0.4 % (0-2); Eosinophils Absolute Auto 0.9 X10*3/uL (0.0-0.4); Eosinophils Percent Auto 5.4 % (0-4); Hematocrit 42.5 % (37.0-47.0); Hemoglobin 14.6 g/dl (12.0-16.0); Imm Gran Pct Auto 1.2 % (0.0-0.4); Lymphocytes Absolute Auto 3.7 X10*3/uL (1.2-4.9); Lymphocytes Percent Auto 22.9 % (20-40); Mean Corpuscular HGB Conc 34.4 g/dl (31.0-35.0); Mean Corpuscular Hemoglobin 35.7 pg (27.0-33.0); Mean Corpuscular Volume 103.9 fL (80.0-98.0); Mean Platelet Volume 10.1 fL (9.4-12.3); Monocytes Percent Auto 6.1 % (2-11); Neutrophils Absolute Auto 10.4 x10*3/uL (2.0-8.3); Platelet Count 320 X10*3/uL (160-400); Red Blood Count 4.09 X10*6/uL (4.20-5.50); Red Cell Distribution Width 12.9 % (11.0-16.0); White Blood Count 16.2 X10*3/uL (4.8-10.8)
[2022-04-11 18:39] LABS: Alanine Aminotransferase 10 U/L (0-31); Albumin Level 3.8 g/dL (3.5-5.0); Alkaline Phosphatase 99 U/L (39-117); Anion Gap 14 (12-20); Aspartate Amino Transferase 16 U/L (5-31); Bilirubin Total 0.4 mg/dL (0.0-1.0); Blood Urea Nitrogen 10 mg/dL (9-16); Calcium 9.3 mg/dL (8.4-10.2); Carbon Dioxide 28 mmol/L (22-29); Chloride 102 mmol/L (96-108); Creatinine Clr Calc Pharmacy 76.4; Estimated Glomerular Filt Rate > 60; Glucose Random 96 mg/dL (60-115); Potassium 3.8 mmol/L (3.3-5.1); Sodium 140 mmol/L (135-145); Total Protein 6.5 g/dL (6.5-8.0)
[2022-04-11 19:16] VITALS: BP 168/62; PULSE 80; RESP 14; TEMP 36.7; O2SAT 96
[2022-04-11] MEDS: 0.9 % Sodium Chloride 1,000 ML 999 ML IV ×3 (20:58→21:12)
[2022-04-11] MEDS: diphenhydrAMINE HCL 50 MG/ML VIAL 25 MG IVPUSH (20:59)
[2022-04-11] MEDS: Piperacillin Sodium/Tazobactam 3.375 GM in 0.9 % Sodium Chloride 50 ML IV (20:59)
--- NOTE | 2022-04-11 22:04 | MHC.EDTECH ---
Call out to [facility] transfer line @[phone] [facility] not accepting any ENT transfers
[2022-04-11] MEDS: dexAMETHasone sod phosphate 4 MG/ML VIAL 6 MG IVPUSH (22:06)
[2022-04-11] MEDS: Morphine Sulfate 4 MG/ML CARTRIDGE IVPUSH (22:07)
[2022-04-11] MEDS: Lidocaine HCl 1 % 20 ML VIAL 4 ML INFILTRATI (22:55)
--- NOTE | 2022-04-11 23:19 | PC.NURSE ---
Med Rec complete. Hospitalist at bedside. Covid swab obtained. Pt aware of plan for admission.2
[2022-04-11 23:45] LABS: COVID-19 Test Negative (Negative); IDNOW Serial# 6674DD1D
--- NOTE | 2022-04-11 23:59 | MHC.EDTECH ---
Call out to [facility] regarding transfer @[phone] [facility]
--- NOTE | 2022-04-12 02:55 | PC.NURSE ---
[facility]
--- NOTE | 2022-04-12 03:05 | PC.NURSE ---
Nurse to nurse report called to [facility] ED RN. ambulance transfer from [facility] @[phone]
== END 2022-04-12 03:07 | disposition short-term general hospital (02) ==
PROVIDERS: Physician Assistant; Emergency Provider Student in an Organized Health Care Education/Training Program
DX: L03.211 Cellulitis of face (principal); K08.89 Other specified disorders of teeth and supporting structures; K02.9 Dental caries, unspecified; R68.84 Jaw pain; Z20.822 Contact with and (suspected) exposure to COVID-19; I10 Essential (primary) hypertension; I25.2 Old myocardial infarction; F17.200 Nicotine dependence, unspecified, uncomplicated; F12.90 Cannabis use, unspecified, uncomplicated; Z79.82 Long term (current) use of aspirin; Z79.02 Long term (current) use of antithrombotics/antiplatelets; Z79.899 Other long term (current) drug therapy
CPT/HCPCS: 36415; 70486; 80053; 83605; 85025; 87040; 87635; 96361; 96374; 96375; 99285; J1100; J1200; J2270; J2543

== ENCOUNTER 2022-05-19 23:19 | Inpatient (IN) | payer OTHER, SELFPAY ==
--- NOTE | 2022-05-19 | ECG_ITS ---
Test Reason : CHEST PAIN Blood Pressure : / mmHG Vent. Rate : 102 BPM Atrial Rate : 102 BPM P-R Int : 152 ms QRS Dur : 070 ms QT Int : 370 ms P-R-T Axes : 066 037 073 degrees QTc Int : 482 ms Artifact in tracing Sinus tachycardia Nonspecific ST abnormality Abnormal ECG When compared with ECG of 15-JAN-2022 10:39, QT has shortened Referred By: Generic ED Physician Electronically Signed By:MORGAN JONES
--- NOTE | ~2022-05-19 | XR_ITS ---
EXAMINATION: XR CHEST CLINICAL INFORMATION: Chest pain COMPARISON: 10/13/2019 TECHNIQUE: Frontal view of the chest was obtained. FINDINGS: Normal symmetric lung volumes. No parenchymal consolidation. No pleural effusion. No pneumothorax. Cardiomediastinal silhouette and pulmonary vascularity are within normal limits. No acute osseous abnormalities. XR/XR chest 1V IMPRESSION: No acute findings.
--- NOTE | ~2022-05-19 | NM_ITS ---
LEXISCAN STRESS AND RESTING SPECT MYOCARDIAL PERFUSION IMAGING STUDY WITH GATED SPECT IMAGES: CLINICAL INDICATION: Chest pain. PROCEDURE: Regional myocardial perfusion was assessed using a 2 day protocol. Stress images were obtained on 05/23/2022 following the intravenous administration of 25 mCi Tc 99m sestamibi. Stress was performed using 0.4 mg Lexiscan intravenous injection. Following the stress sestamibi injection, 75 mg Aminophyllin was injected intravenously. Rest images were obtained 05/22/2022 following the intravenous administration of 25 mCi Technetium 99m Sestamibi. Single photon emission tomographic (SPECT) images were obtained using a hybrid SPECT CT scanner. SPECT images were acquired in a 128 x 128 matrix of 68 projections over 180 degrees. There were reconstructed into standard short axis, horizontal and vertical long axis cardiac projections. The CT images were obtained for attenuation correction. Total CT exam dose-length product 72 mGy-cm * These CT images were obtained using dose optimization techniques as appropriate, variously including the following: Automated exposure control * Adjustment of mA and/or kV according to patient size (this includes techniques or standardized protocols for targeted exams where dose is matched to indication/reason for exam; i.e. extremities or head) * Use of iterative reconstruction technique FINDINGS: The post stress images show the left ventricular chamber to be normal in size. There is a small region of moderately diminished activity involving the apical anterior wall and portions of the adjacent apex and apical septal wall. The activity in the other garcia is normal. The rest images show almost complete resolution of the perfusion abnormality described above on the stress images with only minimally decreased activity present in a small region at the apex. The other garcia are unchanged from the stress images and appear normal. The images were obtained using a gated SPECT technique, which permits visualization of wall motion and calculation of the left ventricular ejection fraction. No wall motion abnormalities are noted on either the stress or the rest acquisition. The calculated left ventricular ejection fraction is 74% on the stress study and 61% on the rest study. No previous study is available for comparison. NM/NM cardiolite stress test IMPRESSION: A small reversible perfusion abnormality is present involving the apical anterior wall and portions of the adjacent wall segments as described above. No other perfusion abnormalities are present. Left ventricular wall motion and ejection fraction are normal on both the stress and rest acquisitions.
--- NOTE | ~2022-05-19 | CT_ITS ---
EXAMINATION: CT HEAD WITHOUT CONTRAST CLINICAL INFORMATION: History of cerebral aneurysm craniotomy. Evaluate for bleed. COMPARISON: 03/17/2019 TECHNIQUE: Contiguous axial imaging was performed from the skull base to vertex without intravenous administration of contrast. This CT examination was performed using dose optimization techniques as appropriate, variously including the following: *Automated exposure control *Adjustment of mA and/or kV according to patient size (this includes techniques or standardized protocols for targeted exams where dose is matched to indication/reason for exam; i.e. extremities or head) *Use of iterative reconstruction technique DLP: 601 mGy-cm FINDINGS: Embolization coils redemonstrated adjacent to the left anterior clinoid, right posterior clinoid and lateral to the right cavernous sinus artifact. No acute intracranial hemorrhage. Focal hypodensity in the left centrum semiovale is new from prior, likely sequela of small vessel ischemic disease. No extra-axial collection. The jugular system normal in size and attenuation Calvarium intact. Paranasal sinuses are clear. CT/CT head/brain wo IV con IMPRESSION: * No acute intracranial hemorrhage. * Focal hypodensity in the left centrum semiovale is new from prior, likely sequela of small vessel ischemic disease.
[2022-05-20] VITALS (17 sets, daily range): BP systolic 119–189; BP diastolic 77–123; PULSE 68–98; RESP 14–20; TEMP 36.6–37.2; O2SAT 94–100; BMI 25.0
--- NOTE | 2022-05-20 00:20 | ED.CHESTPAIN ---
HPI - Chest Pain General Chief Complaint: Chest Pain Stated Complaint: Chest pain/previous heart attack/fever/chills Time Seen by Provider: 05/20/22 00:06 Source: patient Mode of arrival: ambulatory Limitations: no limitations History of Present Illness HPI narrative: Patient comes to the emergency room complaining of chest pain that started 6 hours ago. Patient states it feels like a burning sensation coming from the epigastric area radiating towards both sides of the chest and up the left arm. Patient denies nausea vomiting diarrhea. No headache. Patient states that she is compliant with her blood pressure medications, in triage blood pressure 183/123. Patient states she takes metoprolol 50 mg, lisinopril 40 mg, amlodipine 10 mg. Related Data Home Medications Medication Instructions Recorded Confirmed amlodipine 10 mg tablet (Norvasc) 20 mg PO DAILY 04/11/22 05/20/22 aspirin 81 mg tablet,delayed 1 tab PO DAILY 04/11/22 05/20/22 release atorvastatin 40 mg tablet 2 tab PO DAILY 04/11/22 05/20/22 escitalopram oxalate 10 mg tablet 10 mg PO DAILY 04/11/22 05/20/22 lisinopril 40 mg tablet 1 tab PO DAILY 04/11/22 05/20/22 metoprolol succinate 50 mg 1 tab PO DAILY 04/11/22 05/20/22 tablet,extended release 24 hr quetiapine 50 mg tablet 1 tab PO BEDTIME 04/11/22 05/20/22 Allergies Allergy/AdvReac Type Severity Reaction Status Date / Time Iodinated Contrast Media Allergy Mild RASH Verified 10/12/21 03:04 [CONTRAST, IV] DECONGESTIONS Allergy Unknown INCREASED Uncoded 10/12/21 03:04 HEART RATE Review of Systems Review of Systems: Constitutional : No Weight loss, No Fever, No Chills, No Night Sweats, No Fatigue, No Malaise ENT/Mouth : No Hearing loss, No Ear Pain, No Nasal Congestion, No Sinus Pain, No Hoarseness, No sore throat, No Rhinorrhea, No Swallowing Difficulty Eyes: No Eye Pain, No Swelling, No Redness, No Foreign Body, No Discharge, No Vision Changes Cardiovascular : Complaining of epigastric burning sensation radiating up towards the chest and left arm. Constant for 6 hours. Respiratory : No Cough, No Sputum, No Wheezing, No Smoke Exposure, No Dyspnea Gastrointestinal : No Nausea, No Vomiting, No Diarrhea, No Constipation, No abdominal Pain, No Hematochezia, No Melena Genitourinary : no irregular bleeding, No Dysuria, No Urinary Frequency, No Hematuria, No Urinary Incontinence, No Urgency, No Flank Pain, No Urinary Flow Changes, No Hesitancy Musculoskeletal : No joint pain, No Myalgias, No Joint Swelling Skin : No Skin Lesions, No rash Neuro : No Weakness, No Numbness, No Paresthesias, No Loss of Consciousness, No Dizziness, No Headache Psych : No Anxiety/Panic, No Depression, No SI/HI/AH/VH, No Social Issues, Heme/Lymph: No Bruising, No Bleeding,No Lymphadenopathy Endocrine : No Polyuria, No Polydipsia, No Temperature Intolerance [facility] Past Medical History Medical History Cerebral aneurysm HTN (hypertension) Myocardial infarct Surgical History H/O craniotomy H/O heart artery stent Social History Social History Household Members: Significant Other Housing: Apartment Alcohol intake: current Alcohol intake frequency: a few times a month Alcohol type: hard liquor Patient Tobacco Use Status: Current everyday Tobacco user Smoked in Last 30 Days: Yes Use of substances other than those prescribed or required for medical reasons: No Substance Use Type: Marijuana Advance Directives: No Advance Directives Information Provided: Yes Patient : No service: No Current occupational status: unemployed Physical Exam Vital Signs: Vital Signs: Last Vital Signs Temp 98.4 F 05/20/22 02:41 Pulse 81 05/20/22 05:33 Resp 17 05/20/22 05:33 BP 167/83 H 05/20/22 05:33 Pulse Ox 97 05/20/22 05:33 O2 Del Method 05/20/22 05:33 BMI result Body Mass Index 25.0 Const: Other: Appearance: Alert. Oriented X3. No acute distress. Eyes: Pupils equal, round and reactive to light. ENT: Pharynx normal. Neck: Normal inspection. Neck supple. No lymph nodes noted. No crepitus CVS: Normal heart rate and rhythm. Pulses normal. Normal S1 and S2 Respiratory: No respiratory distress. Breath sounds normal. No Wheezing. No rales Abdomen: Soft and nontender. No rigidity. No distention. Skin: Skin warm and dry. Normal skin color. Normal skin turgor. Extremities: No lower extremity edema. No Lacerations. No Rash Neuro: Oriented X 3. No motor deficit. No sensory deficit. Moving all extremities. No slurred speech. CN 2 through 12 grossly intact Psych: calm, cooperative, seems anxious Course Course Course Narrative: -patient's labs and imaging pending. -due to patient's cardiac history we will obtain a 2nd troponin 3 hours after the 1st troponin -patient received 10 mg IV labetalol, did not help much. Patient states that she feels extremely anxious and would like something for anxiety. Patient given 2 mg IV of Ativan. We will reassess blood pressure after the Ativan is given -it was noted the patient's blood alcohol level is positive. Patient states that she drank a few nebs today to help calm her symptoms. Patient states that she drinks once a month. Patient denies that she is withdrawing from alcohol. Medications Administered Discontinued Medications Generic Name Dose Route Start Last Admin Trade Name Freq PRN Reason Stop Dose Admin Amlodipine Besylate 10 mg 05/20/22 03:55 05/20/22 04:29 Amlodipine Besylate 10 Mg Tablet PO 05/20/22 03:56 10 mg ONCE ONE Administration Protocol Aspirin 325 mg 05/20/22 00:16 05/20/22 00:33 Aspirin Enteric Coated 325 Mg Tablet. PO 05/20/22 00:17 325 mg ONCE ONE Administration Famotidine 20 mg 05/20/22 00:16 05/20/22 00:33 Famotidine/Pf 20 Mg/2 Ml Vial IVPUSH 05/20/22 00:17 20 mg ONCE ONE Administration Labetalol HCl 10 mg 05/20/22 00:16 05/20/22 00:33 Labetalol Hcl 100 Mg/20 Ml Vial IVPUSH 05/20/22 00:17 10 mg ONCE ONE Administration Lorazepam 2 mg 05/20/22 01:13 05/20/22 01:51 Lorazepam 2 Mg/Ml Vial IVPUSH 05/20/22 01:14 2 mg ONCE ONE Administration Nitroglycerin 1 inch 05/20/22 01:47 05/20/22 01:56 Nitroglycerin 2 % Oint 1 Gm Packet TRANSDERMA 05/20/22 01:48 1 inch ONCE ONE Administration Ondansetron HCl 4 mg 05/20/22 00:16 05/20/22 00:33 Ondansetron Hcl 4 Mg/2 Ml Vial IVPUSH 05/20/22 00:17 4 mg ONCE ONE Administration Phenobarbital Sodium 273.6 mg 05/20/22 04:15 05/20/22 04:28 Phenobarbital Sodium 130 Mg/Ml Im Once IM 05/20/22 04:16 273.6 mg ONCE ONE Administration Medical Decision Making Medical Decision Making [facility] Narrative: -patient's troponin 2. Is more elevated on the 1st troponin. Less than delta 50. However, this is likely secondary to hypertension. -patient has an elevated blood pressure that is very difficult to control. Patient states she is compliant with her medications. -patient is still having chest pain. EKG does not show any acute abnormalities or any changes to indicate ACS. -I discussed the patient with Dr. Erickson, we will give her her home dose of amlodipine, see the blood pressure drops. Patient has already had a dose of aspirin, labetalol, Ativan, nitroglycerin paste. If the amlodipine does not work, we will try Lasix or labetalol. -patient does not have a headache but we will get a CT scan due to the elevated blood pressure and history of aneurysm Differential Diagnosis Differential Diagnoses: The differential diagnosis associated with the presentation includes (Hypertension, medication noncompliance, hypertensive emergency) Admission/Observation Consideration of admission/observation: Escalation of care including admission/observation considered Consult Healthcare Provider Management of the patient was discussed with: Hospitalist Lab Data [facility] Lab Attestation statement: I reviewed the patient's lab results. 05/20/22 00:11 05/20/22 00:11 Labs: Lab Results 05/20/22 05/20/22 05/20/22 Range/Units 00:11 00:11 00:11 WBC 12.7 H (4.8-10.8) X10*3/uL RBC 4.37 (4.20-5.50) X10*6/uL Hgb 15.1 (12.0-16.0) g/dl Hct 43.2 (37.0-47.0) % MCV 98.9 H (80.0-98.0) fL MCH 34.6 H (27.0-33.0) pg MCHC 35.0 (31.0-35.0) g/dl RDW 12.9 (11.0-16.0) % Plt Count 309 (160-400) X10*3/uL MPV 9.7 (9.4-12.3) fL Immature Gran % (Auto) 0.4 (0.0-0.4) % Neut % (Auto) 82.5 H (45-73) % Lymph % (Auto) 12.2 L (20-40) % [place] % (Auto) 4.3 (2-11) % Eos % (Auto) 0.2 (0-4) % Baso % (Auto) 0.4 (0-2) % Lymph # (Auto) 1.6 (1.2-4.9) X10*3/uL [place] # (Auto) 0.6 (0.1-1.2) X10*3/uL Eos # (Auto) 0.0 (0.0-0.4) X10*3/uL Baso # (Auto) 0.1 (0.0-0.2) X10*3/uL Abs Immat Gran (auto) 0.05 H (0.00-0.03) X10*3/uL Absolute Neuts (auto) 10.5 H (2.0-8.3) x10*3/uL Absolute Nucleated RBC 0.000 (0.0-0.012) X10*3/uL Nucleated RBC % (auto) 0.0 (0.0-0.2) /100WBC Sodium 140 (135-145) mmol/L Potassium 3.4 (3.3-5.1) mmol/L Chloride 105 (96-108) mmol/L Carbon Dioxide 15 L (22-29) mmol/L Anion Gap 23 H (12-20) BUN 7 L (9-16) mg/dL Creatinine 0.66 (0.5-1.4) mg/dL Estim Creat Clear Calc 90.7 Estimated GFR > 60 Random Glucose 128 H (60-115) mg/dL Calcium 9.5 (8.4-10.2) mg/dL Total Bilirubin 1.0 (0.0-1.0) mg/dL Direct Bilirubin 0.3 (0.0-0.5) mg/dL AST 16 (5-31) U/L ALT 9 (0-31) U/L Alkaline Phosphatase 109 (39-117) U/L Troponin I High Sens 58.8 H* (<3.5-17.0) ng/L Total Protein 7.3 (6.5-8.0) g/dL Albumin 4.3 (3.5-5.0) g/dL Lipase 14 (8-78) U/L Ethyl Alcohol 67 mg/dL COVID-19 (ELIN) (Negative) COVID-19 Clin Com 05/20/22 05/20/22 Range/Units 02:58 05:04 WBC (4.8-10.8) X10*3/uL RBC (4.20-5.50) X10*6/uL Hgb (12.0-16.0) g/dl Hct (37.0-47.0) % MCV (80.0-98.0) fL MCH (27.0-33.0) pg MCHC (31.0-35.0) g/dl RDW (11.0-16.0) % Plt Count (160-400) X10*3/uL MPV (9.4-12.3) fL Immature Gran % (Auto) (0.0-0.4) % Neut % (Auto) (45-73) % Lymph % (Auto) (20-40) % [place] % (Auto) (2-11) % Eos % (Auto) (0-4) % Baso % (Auto) (0-2) % Lymph # (Auto) (1.2-4.9) X10*3/uL [place] # (Auto) (0.1-1.2) X10*3/uL Eos # (Auto) (0.0-0.4) X10*3/uL Baso # (Auto) (0.0-0.2) X10*3/uL Abs Immat Gran (auto) (0.00-0.03) X10*3/uL Absolute Neuts (auto) (2.0-8.3) x10*3/uL Absolute Nucleated RBC (0.0-0.012) X10*3/uL Nucleated RBC % (auto) (0.0-0.2) /100WBC Sodium (135-145) mmol/L Potassium (3.3-5.1) mmol/L Chloride (96-108) mmol/L Carbon Dioxide (22-29) mmol/L Anion Gap (12-20) BUN (9-16) mg/dL Creatinine (0.5-1.4) mg/dL Estim Creat Clear Calc Estimated GFR Random Glucose (60-115) mg/dL Calcium (8.4-10.2) mg/dL Total Bilirubin (0.0-1.0) mg/dL Direct Bilirubin (0.0-0.5) mg/dL AST (5-31) U/L ALT (0-31) U/L Alkaline Phosphatase (39-117) U/L Troponin I High Sens 77.5 H* (<3.5-17.0) ng/L Total Protein (6.5-8.0) g/dL Albumin (3.5-5.0) g/dL Lipase (8-78) U/L Ethyl Alcohol mg/dL COVID-19 (ELIN) Negative (Negative) COVID-19 Clin Com See Note Independent Interpretation I performed an independent interpretation of an: CT Scan (My interpretation of head CT: No intracranial bleed, there is embolization coil on the left) Radiology Impression Discussion of test interpretation with radiology: I have reviewed the radiologist's reading. Radiologist Impression: FINDINGS: Embolization coils redemonstrated adjacent to the left anterior clinoid, right posterior clinoid and lateral to the right cavernous sinus artifact. No acute intracranial hemorrhage. Focal hypodensity in the left centrum semiovale is new from prior, likely sequela of small vessel ischemic disease. No extra-axial collection. The jugular system normal in size and attenuation Calvarium intact. Paranasal sinuses are clear. ? CT/CT head/brain wo IV con IMPRESSION: *? No acute intracranial hemorrhage. *? Focal hypodensity in the left centrum semiovale is new from prior, likely sequela of small vessel ischemic disease. Critical Care Time Critical Care Time Critical Care Time: Yes Total Critical Care Time: 60 Attestation: I have personally provided critical care time. Time includes review of lab data, radiology results, discussion with consultants, and monitoring for potential decompensation. Intervention performed as documented. Discharge Plan Discharge Clinical Impression: HTN (hypertension) Patient Disposition: Home, Self-Care
[2022-05-20 00:22] LABS: MANUAL DIFF FLAG NO
[2022-05-20 00:24] LABS: Basophils Absolute Auto 0.1 X10*3/uL (0.0-0.2); Basophils Percent Auto 0.4 % (0-2); Eosinophils Percent Auto 0.2 % (0-4); Hematocrit 43.2 % (37.0-47.0); Hemoglobin 15.1 g/dl (12.0-16.0); Imm Gran Abs Auto 0.05 X10*3/uL (0.00-0.03); Imm Gran Pct Auto 0.4 % (0.0-0.4); Lymphocytes Absolute Auto 1.6 X10*3/uL (1.2-4.9); Lymphocytes Percent Auto 12.2 % (20-40); Mean Corpuscular Hemoglobin 34.6 pg (27.0-33.0); Mean Corpuscular Volume 98.9 fL (80.0-98.0); Mean Platelet Volume 9.7 fL (9.4-12.3); Monocytes Absolute Auto 0.6 X10*3/uL (0.1-1.2); Monocytes Percent Auto 4.3 % (2-11); Neutrophils Absolute Auto 10.5 x10*3/uL (2.0-8.3); Neutrophils Percent Auto 82.5 % (45-73); Platelet Count 309 X10*3/uL (160-400); Red Blood Count 4.37 X10*6/uL (4.20-5.50); Red Cell Distribution Width 12.9 % (11.0-16.0); White Blood Count 12.7 X10*3/uL (4.8-10.8)
[2022-05-20] MEDS: ondansetron HCL 4 MG/2 ML VIAL IVPUSH (00:33)
[2022-05-20] MEDS: Labetalol HCL 100 MG/20 ML VIAL 10 MG IVPUSH (00:33)
[2022-05-20] MEDS: Aspirin Enteric Coated 325 MG TABLET.DR PO (00:33)
[2022-05-20] MEDS: Famotidine/PF 20 MG/2 ML VIAL IVPUSH (00:33)
[2022-05-20 00:44] LABS: Alanine Aminotransferase 9 U/L (0-31); Albumin Level 4.3 g/dL (3.5-5.0); Alkaline Phosphatase 109 U/L (39-117); Anion Gap 23 (12-20); Aspartate Amino Transferase 16 U/L (5-31); Bilirubin Direct 0.3 mg/dL (0.0-0.5); Blood Urea Nitrogen 7 mg/dL (9-16); Calcium 9.5 mg/dL (8.4-10.2); Carbon Dioxide 15 mmol/L (22-29); Chloride 105 mmol/L (96-108); Creatinine Clr Calc Pharmacy 90.7; Estimated Glomerular Filt Rate > 60; Glucose Random 128 mg/dL (60-115); Lipase 14 U/L (8-78); Potassium 3.4 mmol/L (3.3-5.1); Sodium 140 mmol/L (135-145); Total Protein 7.3 g/dL (6.5-8.0)
[2022-05-20 00:48] LABS: Troponin-I High Sensitivity 58.8 ng/L (<3.5-17.0)
[2022-05-20 01:29] LABS: Ethanol 67 mg/dL
[2022-05-20] MEDS: LORazepam 2 MG/ML VIAL IVPUSH (01:51)
[2022-05-20] MEDS: Nitroglycerin 2 % Oint 1 GM Packet 1 INCH TRANSDERMA (01:56)
[2022-05-20 03:32] LABS: Troponin-I High Sensitivity 77.5 ng/L (<3.5-17.0)
[2022-05-20] MEDS: PHENobarbitaL sodium 130 MG/ML IM ONCE 273.6 MG IM (04:28)
[2022-05-20] MEDS: amLODIPine Besylate 10 MG TABLET PO (04:29)
[2022-05-20 05:23] LABS: COVID-19 Test Negative (Negative); IDNOW Serial# 6674DD1D
--- NOTE | 2022-05-20 05:34 | PM.IMHP ---
History of Present Illness Date of Service: 05/20/22 Chief Complaint: Alcohol use disorder 51-year-old female with a past medical history of hypertension, hyperlipidemia, CAD status post PCI, cerebral aneurysm-times per, history of intracranial bleed status post craniotomy; alcohol use disorder; anxiety, depression presented to the hospital today with a chief complaint of chest pain. Patient mentioned that she had chest pain prior to coming to the hospital, located in the left side of the chest, radiating to the left arm; also complains of abdominal discomfort associated nausea . Mentions that she had units of alcohol prior to coming to the hospital. Denies using alcohol on a daily basis. Patient denies any chest pain at the time of my interview. Denies any shortness of breath, lightheadedness or dizziness. Denies any fever chills cough or sputum production. Denies any urinary symptoms. Review of all other systems is negative except mentioned above ER course: Per ER team, patient on presentation noted to have elevated blood pressure of 23/123; CT head showed small hypodensity/microvascular ischemic changes; patient was given IV labetalol and diarrhea given concerns for alcohol withdrawal received IV Ativan with no significant improvement. Follow patient received 2 more doses of IV labetalol, started on phenobarb protocol; also later on given amlodipine; subsequently her blood pressure slowly gradually started to come down initial to 166 dollar conformed by the latest blood pressure being 138 over 112; exam was nonfocal. Admitted to the hospital for further management [facility] Medical History Cerebral aneurysm HTN (hypertension) Myocardial infarct Surgical History H/O craniotomy H/O heart artery stent Social History Household Members: Significant Other Housing: Apartment Alcohol intake: current Alcohol intake frequency: a few times a month Alcohol type: hard liquor Patient Tobacco Use Status: Current everyday Tobacco user Smoked in Last 30 Days: Yes Use of substances other than those prescribed or required for medical reasons: No Substance Use Type: Marijuana Advance Directives: No Advance Directives Information Provided: Yes Patient : No service: No Current occupational status: unemployed Meds Allergies Allergy/AdvReac Type Severity Reaction Status Date / Time Iodinated Contrast Media Allergy Mild RASH Verified 10/12/21 03:04 [CONTRAST, IV] DECONGESTIONS Allergy Unknown INCREASED Uncoded 10/12/21 03:04 HEART RATE Active Medications: Current Medications Amlodipine Besylate (Amlodipine Besylate 10 Mg Tablet) 10 mg PO DAILY [facility]; Protocol Atorvastatin Calcium (Atorvastatin Calcium 40 Mg Tablet) 40 mg PO BEDTIME [facility] Dextrose/Sodium Chloride (D51/2ns) 1,000 mls @ 100 mls/hr IVCONT .Q10H [facility] Labetalol HCl (Labetalol Hcl 100 Mg/20 Ml Vial) 10 mg IVPUSH Q4H PRN PRN Reason: BP>140/90 Lisinopril (Lisinopril 40 Mg Tablet) 40 mg PO DAILY [facility]; Protocol Metoprolol Succinate (Metoprolol Succinate Er 50 Mg Tab.Er.24h) 50 mg PO DAILY [facility]; Protocol Pharmacy Consult (Consult Rx Etoh Phenob Im/Po) 1 each MISCELLANE ONCE PRN; Protocol PRN Reason: Consult order Phenobarbital Sodium (Phenobarbital Sodium 130 Mg/Ml Vial Im Q3hx2) 205.2 mg IM Q3H [facility] Stop: 05/20/22 10:16 Sodium Chloride (0.9 % Sodium Chloride Flush 3 Ml Syringe) 3 ml IVFLUSH QSHIFT [facility] Home Medications Medication Instructions Recorded Confirmed Last Taken Type amlodipine 10 mg tablet (Norvasc) 20 mg 04/11/22 04/11/22 08:00 History aspirin 81 mg tablet,delayed 1 tab PO DAILY 04/11/22 04/11/22 04/11/22 08:00 History release atorvastatin 40 mg tablet 2 tab PO DAILY 04/11/22 04/11/22 04/11/22 08:00 History escitalopram oxalate 10 mg tablet mg PO 04/11/22 Unknown History lisinopril 40 mg tablet 1 tab PO DAILY 04/11/22 04/11/22 04/11/22 08:00 History metoprolol succinate 50 mg 1 tab PO DAILY 04/11/22 04/11/22 04/11/22 08:00 History tablet,extended release 24 hr quetiapine 50 mg tablet 1 tab PO BEDTIME 04/11/22 04/11/22 04/10/22 21:00 History Physical Exam Vital Signs and Narrative: Vital Signs: Last Vital Signs Temp 98.4 F 05/20/22 02:41 Pulse 81 05/20/22 05:33 Resp 17 05/20/22 05:33 BP 167/83 H 05/20/22 05:33 Pulse Ox 97 05/20/22 05:33 O2 Del Method 05/20/22 05:33 BMI result Body Mass Index 25.0 Gen: Appears be in no acute distress HEENT: NCAT, Moist mucosa. Pulmonary: Vesicular breath sounds, fair air entry CVS: Normal S1-S2 Abdomen: BS+, Soft, Nontender Extremities: Warm well perfused Neuro: Alert and awake. Oriented x3; nonfocal examination Results Labs 05/20/22 00:11 05/20/22 00:11 Labs: Laboratory Results - last 24 hr 05/20/22 05/20/22 05/20/22 00:11 00:11 00:11 MCV 98.9 H MCH 34.6 H MCHC 35.0 RDW 12.9 Plt Count 309 MPV 9.7 Immature Gran % (Auto) 0.4 Neut % (Auto) 82.5 H Lymph % (Auto) 12.2 L [place] % (Auto) 4.3 Eos % (Auto) 0.2 Baso % (Auto) 0.4 Lymph # (Auto) 1.6 [place] # (Auto) 0.6 Eos # (Auto) 0.0 Baso # (Auto) 0.1 Abs Immat Gran (auto) 0.05 H Absolute Neuts (auto) 10.5 H Absolute Nucleated RBC 0.000 Nucleated RBC % (auto) 0.0 Anion Gap 23 H Estim Creat Clear Calc 90.7 Estimated GFR > 60 Random Glucose 128 H Calcium 9.5 Total Bilirubin 1.0 Direct Bilirubin 0.3 AST 16 ALT 9 Alkaline Phosphatase 109 Troponin I High Sens 58.8 H* Total Protein 7.3 Albumin 4.3 Lipase 14 Ethyl Alcohol 67 COVID-19 ([facility]) COVID-19 Clin Com 05/20/22 05/20/22 02:58 05:04 MCV MCH MCHC RDW Plt Count MPV Immature Gran % (Auto) Neut % (Auto) Lymph % (Auto) [place] % (Auto) Eos % (Auto) Baso % (Auto) Lymph # (Auto) [place] # (Auto) Eos # (Auto) Baso # (Auto) Abs Immat Gran (auto) Absolute Neuts (auto) Absolute Nucleated RBC Nucleated RBC % (auto) Anion Gap Estim Creat Clear Calc Estimated GFR Random Glucose Calcium Total Bilirubin Direct Bilirubin AST ALT Alkaline Phosphatase Troponin I High Sens 77.5 H* Total Protein Albumin Lipase Ethyl Alcohol COVID-19 ([facility]) Negative COVID-19 Clin Com See Note Imaging Radiologist's Impressions: Impressions Chest X-Ray 05/20/22 03:40 IMPRESSION: No acute findings. Head CT 05/20/22 04:17 IMPRESSION: * No acute intracranial hemorrhage. * Focal hypodensity in the left centrum semiovale is new from prior, likely sequela of small vessel ischemic disease. Assessment and Plan (1) HTN (hypertension): Status: Acute Plan 51-year-old female with a past medical history of hypertension, hyperlipidemia, CAD status post PCI, cerebral aneurysm-times per, history of intracranial bleed status post craniotomy; alcohol use disorder; anxiety, depression presented to the hospital today with a chief complaint of chest pain. Noted to be in hypertensive urgency. Admitted for further management. Chest pain: EKG nonischemic. Troponin 58-->77. Chest pain currently resolved. Cardiology follow-up. Hypertensive urgency: Patient denies any headaches. CT head negative. Continue home lisinopril, metoprolol, amlodipine. IV labetalol p.r.n.. Goal blood pressure less than 140/90. Gradually improving. Abnormal CT head: Noted to have focal hypodensity/small vessel ischemic disease. Exam was nonfocal. Neurology consult Anion gap metabolic acidosis: No unclear etiology. Lactate levels pending. Urine ketones negative. Initially presumed to be secondary to alcoholic ketosis. Gentle IV fluids. Alcohol use disorder: Patient was started on phenobarb protocol in the ER. Patient denies excessive use of alcohol. Thiamine folate and multivitamins History of CAD: Continue home aspirin, statin, beta-kelsea History of depression: Continue home escitalopram GI prophylaxis: Pepcid DVT prophylaxis: Subcu heparin Code status: Full code Time Spent With Patient Time: Total time managing care of this patient today ____ minutes. Quality Stroke Does the patient have a stroke diagnosis?: No VTE Prior VTE?: No VTE Risk Level:: Medical - moderate - high VTE Device Contraindication: Treatment Not Indicated VTE Drug Contraindication: N/A - Med Ordered
[2022-05-20] MEDS: Dextrose 5 % and 0.45 % NaCl 1,000 ML 100 ML IVCONT ×2 (06:30→16:04)
[2022-05-20 06:35] LABS: Lactic Acid 1.9 mmol/L (0.5-2.0)
--- NOTE | 2022-05-20 06:39 | PC.NURSE ---
This RN informed hospitalist that pt's BP was starting to come down. RN asked hospitalist if he would still like the pt to receive labetalol IV push. Hospitalist ordered this RN to hold the med. Pt is scheduled for morning BP meds.
[2022-05-20] MEDS: PHENobarbitaL sodium 130 MG/ML VIAL IM Q3Hx2 205.2 MG IM ×2 (07:17→09:22)
--- NOTE | 2022-05-20 08:20 | PHA.MEDREC ---
Pharmacy Consult ? Medication Reconciliation Pharmacy has completed the medication reconciliation. Patient states they are on amlodipine daily, however pharmacy claims they haven't filled prescription since 09/05/21.
[2022-05-20] MEDS: Folic Acid 1 MG TABLET PO (09:22)
[2022-05-20] MEDS: lisinopriL 40 MG TABLET PO (09:22)
[2022-05-20] MEDS: Metoprolol Succinate ER 50 MG TAB.ER.24H PO (09:22)
[2022-05-20] MEDS: Famotidine 20 MG TABLET PO ×2 (09:22→20:08)
[2022-05-20] MEDS: Thiamine HCL 100 MG TABLET PO (09:22)
[2022-05-20 10:08] LABS: Blood Urea Nitrogen 7 mg/dL (9-16); Creatinine Clr Calc Pharmacy 90.7; Estimated Glomerular Filt Rate > 60; Glucose Random 150 mg/dL (60-115)
[2022-05-20] MEDS: Multivitamin TABLET 1 TAB PO (10:22)
--- NOTE | 2022-05-20 10:22 | PM.CNCAR ---
History of Present Illness History of Present Illness Date of Service: 05/20/22 Chief complaint: Alcohol use disorder Narrative: This is a cardiology consultation regarding chest pain and elevated troponins. Patient multiple medical comorbidities including hypertension, hyperlipidemia, coronary disease and prior PCI of unknown nature, cerebral aneurysm with history of intracranial bleed/craniotomy, alcohol excess presents with chest pain. She states that she has been having chest pain the left side radiating to the left arm. She has also been having alcohol and had prior to coming in. It seems blood pressure is markedly high upon arrival. It seems she got IV labetalol. Due to concerns for alcohol withdrawal, she also got Ativan. Then put on phenobarb protocol. Then admitted to the hospital for further care. She states she had a heart attack and stent about 5 years ago but does not generally follow with Cardiology. Review of Systems Review of Systems: Yes all other systems are reviewed and are negative Constitutional: Constitutional: Reports as per HPI and Reports no additional constitutional complaints Eyes: Eyes: Reports as per HPI and Denies no additional eye complaints ENT: Denies system reviewed and no additional complaints, except as documented and Reports as per HPI Cardiovascular: Cardiovascular: Reports as per HPI, Reports no additional cardiovascular complaints, Denies acrocyanosis, Denies cool extremities, Reports chest pain, Denies leg edema, Denies lightheadedness, Denies palpitations and Denies dyspnea Respiratory: Respiratory: Reports as per HPI, Denies no additional respiratory complaints and Denies dyspnea Gastrointestinal: Gastrointestinal: Reports as per HPI and Denies no additional gastrointestinal complaints Genitourinary: Genitourinary: Reports as per HPI Musculoskeletal: Musculoskeletal: Reports no additional musculoskeletal complaints and Reports as per HPI Integumentary/Breasts: Skin/Breast: Reports system reviewed and no additional complaints, except as docu Neurologic: Reports system reviewed and no additional complaints, except as documented and Reports as per HPI Psychiatric: Psychiatric: Reports no additional psychiatric complaints and Reports as per HPI Endocrine: Endocrine: Reports no additional endocrine complaints, Reports as per HPI and Denies palpitations Hematologic/Lymphatic: Hematologic/Lymphatic: Reports no additional hematologic/lymphatic complaints and Reports as per HPI Allergic/Immunologic: Allergic/Immunologic: Reports no additional allergic/immunologic complaints and Reports as per HPI [facility] Past Medical History Medical History Cerebral aneurysm HTN (hypertension) Myocardial infarct Family History Family History (Updated 05/20/22 @ 10:25 by Samuel Cheema MD) Father CAD (coronary artery disease) Surgical History Surgical History H/O craniotomy H/O heart artery stent Social History Social History Household Members: Significant Other Housing: Apartment Do you presently have visiting nurse or other home services: No Alcohol intake: current Alcohol intake frequency: a few times a month Alcohol type: hard liquor Patient Tobacco Use Status: Current everyday Tobacco user Tobacco use type: Cigarette Cigarette Packs Per Day: 0.5 Cigarettes Per Day: 10.0 Years Smoked: 6 Smoked in Last 30 Days: Yes e-Cigarette/Vaping Use: Never Used Patient Interested in Nicotine Replacement: No Patient Given Instructions on How to Stop Smoking: No Second Hand Smoke Exposure: Yes Use of substances other than those prescribed or required for medical reasons: Yes Substance Use Type: Marijuana Substance Use Frequency: Weekly Last Used Substance: Days (ago) Last Used Substance Other:: marijuana Currently Displaying Signs/Symptoms of Drug Intoxication Withdrawal: No Any prior treatment program specific to substance use: No Have you been hit, kicked, punched, or otherwise hurt by someone within the past year? If so, by whom?: No Do you feel safe in your current relationship?: Yes Is there a partner from a previous relationship who is making you feel unsafe now?: No Are you made to feel afraid or neglected: No Advance Directives: No Advance Directives Information Provided: Yes Do you have thoughts of harming others: None Do you have a plan to hurt others: No Plan Recently lost weight without trying: No How much weight loss: Not applicable Eating poorly because of decreased appetite: No Nutrition screen score: 0 Nutrition Risks: No Nutritional Risk Patient : No : No Poor oral hygiene: No service: No Current occupational status: unemployed Meds Allergies Allergy/AdvReac Type Severity Reaction Status Date / Time Iodinated Contrast Media Allergy Mild RASH Verified 10/12/21 03:04 [CONTRAST, IV] DECONGESTIONS Allergy Unknown INCREASED Uncoded 10/12/21 03:04 HEART RATE Active Medications: Current Medications Amlodipine Besylate (Amlodipine Besylate 10 Mg Tablet) 10 mg PO DAILY [facility]; Protocol Atorvastatin Calcium (Atorvastatin Calcium 40 Mg Tablet) 40 mg PO BEDTIME [facility] Famotidine (Famotidine 20 Mg Tablet) 20 mg PO BID [facility] Last Admin: 05/20/22 09:22 Dose: 20 mg Folic Acid (Folic Acid 1 Mg Tablet) 1 mg PO DAILY [facility] Last Admin: 05/20/22 09:22 Dose: 1 mg Dextrose/Sodium Chloride (D51/2ns) 1,000 mls @ 100 mls/hr IVCONT .Q10H [facility] Last Admin: 05/20/22 06:30 Dose: 100 mls/hr Labetalol HCl (Labetalol Hcl 100 Mg/20 Ml Vial) 10 mg IVPUSH Q4H PRN PRN Reason: BP>140/90 Lisinopril (Lisinopril 40 Mg Tablet) 40 mg PO DAILY [facility]; Protocol Last Admin: 05/20/22 09:22 Dose: 40 mg Melatonin (Melatonin 3 Mg Tablet) 3 mg PO BEDTIME [facility] Metoprolol Succinate (Metoprolol Succinate Er 50 Mg Tab.Er.24h) 50 mg PO DAILY [facility]; Protocol Last Admin: 05/20/22 09:22 Dose: 50 mg Multivitamins/Vitamin C (Multivitamin Tablet) 1 tab PO DAILY [facility] Last Admin: 05/20/22 10:22 Dose: 1 tab Pharmacy Consult (Consult Rx Etoh Phenob Im/Po) 1 each MISCELLANE ONCE [facility]; Protocol PRN Reason: Consult order Phenobarbital (Phenobarbital 15 Mg Tablet) 45 mg PO BID [facility] Stop: 05/22/22 09:01 Phenobarbital (Phenobarbital 15 Mg Tablet) 15 mg PO BID [facility] Stop: 05/24/22 09:01 Phenobarbital (Phenobarbital 15 Mg Tablet) 15 mg PO DAILY [facility] Stop: 05/26/22 09:01 Quetiapine Fumarate (Quetiapine Fumarate 50 Mg Tablet) 50 mg PO BEDTIME [facility] Sodium Chloride (0.9 % Sodium Chloride Flush 3 Ml Syringe) 3 ml IVFLUSH QSHIFT [facility] Last Admin: 05/20/22 07:17 Dose: Not Given Thiamine HCl (Thiamine Hcl 100 Mg Tablet) 100 mg PO DAILY [facility] Last Admin: 05/20/22 09:22 Dose: 100 mg Home Medications Medication Instructions Recorded Confirmed Last Taken Type amlodipine 10 mg tablet (Norvasc) 10 mg PO DAILY 01/3105/20/22 05/18/22 History aspirin 81 mg tablet,delayed 1 tab PO DAILY 04/11/22 05/20/22 05/18/22 History release atorvastatin 40 mg tablet 2 tab PO DAILY 04/11/22 05/20/22 05/18/22 History lisinopril 40 mg tablet 1 tab PO DAILY 04/11/22 05/20/22 05/18/22 History metoprolol succinate 50 mg 1 tab PO DAILY 04/11/22 05/20/22 05/18/22 History tablet,extended release 24 hr quetiapine 50 mg tablet 1 tab PO BEDTIME 04/11/22 05/20/22 05/18/22 History acetaminophen 325 mg tablet 650 mg PO Q6H PRN Pain 05/20/22 05/20/22 05/18/22 History escitalopram oxalate 20 mg tablet 1 tab PO DAILY 05/20/22 05/20/22 05/18/22 History ibuprofen 200 mg tablet 400 mg PO Q8H PRN Pain 05/20/22 05/20/22 05/18/22 History melatonin 3 mg tablet 1 tab PO BEDTIME 05/20/22 05/20/22 05/18/22 History Physical Exam Vital Signs: Vital Signs: Last Vital Signs Temp 97.8 F 05/20/22 08:00 Pulse 98 05/20/22 08:00 Resp 20 05/20/22 08:00 BP 174/80 H 05/20/22 08:00 Pulse Ox 97 05/20/22 08:00 O2 Del Method 05/20/22 08:00 BMI result Body Mass Index 25.0 Const: General: comfortable and no acute distress Orientation/consciousness: patient oriented x3 HEENT: Other: Unremarkable Head: Yes normal to inspection Neck: Neck: Yes normal visual inspection Chest: Chest palpation & inspection: normal inspection of the chest Resp: Auscultation: clear to auscultation bilaterally Cardio: Palpation: normal PMI Heart sounds: S1 normal heart sound present, S2 normal heart sound present, no gallops, no murmurs and no rubs GI: Palpation (GI): Soft to palpation Back/Spine/Pelvis: Other: unremarkable Skin: General skin exam: no rashes or lesions noted Neuro: General: patient oriented x3 Extrem: General: Yes normal to inspection Psych: Mental Status: mental status grossly normal Objective Labs and Meds 05/20/22 00:11 05/20/22 08:57 Lab results: Laboratory Results - last 24 hr 05/20/22 05/20/22 05/20/22 00:11 00:11 00:11 WBC 12.7 H RBC 4.37 Hgb 15.1 Hct 43.2 MCV 98.9 H MCH 34.6 H MCHC 35.0 RDW 12.9 Plt Count 309 MPV 9.7 Immature Gran % (Auto) 0.4 Neut % (Auto) 82.5 H Lymph % (Auto) 12.2 L [place] % (Auto) 4.3 Eos % (Auto) 0.2 Baso % (Auto) 0.4 Lymph # (Auto) 1.6 [place] # (Auto) 0.6 Eos # (Auto) 0.0 Baso # (Auto) 0.1 Abs Immat Gran (auto) 0.05 H Absolute Neuts (auto) 10.5 H Absolute Nucleated RBC 0.000 Nucleated RBC % (auto) 0.0 Sodium 140 Potassium 3.4 Chloride 105 Carbon Dioxide 15 L Anion Gap 23 H BUN 7 L Creatinine 0.66 Estim Creat Clear Calc 90.7 Estimated GFR > 60 Random Glucose 128 H Lactic Acid Calcium 9.5 Total Bilirubin 1.0 Direct Bilirubin 0.3 AST 16 ALT 9 Alkaline Phosphatase 109 Troponin I High Sens 58.8 H* Total Protein 7.3 Albumin 4.3 Lipase 14 Ethyl Alcohol 67 COVID-19 ([facility]) COVID-[place] [facility] 05/20/22 05/20/22 05/20/22 02:58 05:04 06:15 WBC RBC Hgb Hct MCV MCH MCHC RDW Plt Count MPV Immature Gran % (Auto) Neut % (Auto) Lymph % (Auto) [place] % (Auto) Eos % (Auto) Baso % (Auto) Lymph # (Auto) [place] # (Auto) Eos # (Auto) Baso # (Auto) Abs Immat Gran (auto) Absolute Neuts (auto) Absolute Nucleated RBC Nucleated RBC % (auto) Sodium Potassium Chloride Carbon Dioxide Anion Gap BUN Creatinine Estim Creat Clear Calc Estimated GFR Random Glucose Lactic Acid 1.9 Calcium Total Bilirubin Direct Bilirubin AST ALT Alkaline Phosphatase Troponin I High Sens 77.5 H* Total Protein Albumin Lipase Ethyl Alcohol COVID-19 ([facility]) Negative COVID-19 [employer] Com See Note 05/20/22 08:57 WBC RBC Hgb Hct MCV MCH MCHC RDW Plt Count MPV Immature Gran % (Auto) Neut % (Auto) Lymph % (Auto) [place] % (Auto) Eos % (Auto) Baso % (Auto) Lymph # (Auto) [place] # (Auto) Eos # (Auto) Baso # (Auto) Abs Immat Gran (auto) Absolute Neuts (auto) Absolute Nucleated RBC Nucleated RBC % (auto) Sodium Potassium Chloride Carbon Dioxide Anion Gap BUN 7 L Creatinine 0.66 Estim Creat Clear Calc 90.7 Estimated GFR > 60 Random Glucose 150 H Lactic Acid Calcium 9.0 Total Bilirubin Direct Bilirubin AST ALT Alkaline Phosphatase Troponin I High Sens Total Protein Albumin Lipase Ethyl Alcohol COVID-19 ([facility]) COVID-19 Clin Com ECG Interpretation: EKG with sinus tachycardia, 102/Min; nonspecific ST-T changes; cannot exclude old anterior infarct but could be from body habitus and lead placement; normal ID and corrected QT. Imaging Radiologist's impression: Impressions Chest X-Ray 05/20/22 03:40 IMPRESSION: No acute findings. Head CT 05/20/22 04:17 IMPRESSION: * No acute intracranial hemorrhage. * Focal hypodensity in the left centrum semiovale is new from prior, likely sequela of small vessel ischemic disease. Assessment and Plan (1) Hypertensive emergency: Status: Acute (2) NSTEMI (non-ST elevated myocardial infarction): Status: Acute (3) Alcohol use disorder: Status: Acute (4) Coronary artery disease: Status: Acute Plan High sensitivity troponins are 58.8 and 77.5. Number, it was less than 3.5. She did have elevated levels prior to that. It alcohol level 67 upon arrival. Blood pressures have been running quite high. Overall, could be hypertensive emergency leading to chest pain and elevated troponins. Background history of coronary artery disease/PCI per patient. Home meds listed as metoprolol, lisinopril and amlodipine. Questionable compliance. We can continue the amlodipine lisinopril though changes. Switch metoprolol to carvedilol for blood pressure management. If this does not help, then probably hydralazine, spironolactone/hydrochlorothiazide other options. Echocardiogram Sunday. No need for heparin drip. Will follow up with you. Discussed with Dr. De La Rosa. Time Spent With Patient Time: Total time managing care of this patient today 75 minutes. Procedures Date of Service Date of Service: 05/20/22
[2022-05-20 10:24] LABS: Anion Gap 21 (12-20); Carbon Dioxide 19 mmol/L (22-29); Chloride 103 mmol/L (96-108); Potassium 3.8 mmol/L (3.3-5.1); Sodium 139 mmol/L (135-145)
--- NOTE | 2022-05-20 12:25 | P.PNIM_ITS ---
Subjective Subjective Date of Service: 05/20/22 Interval History: htn uncontrolled, elevated troponin, chest tightness, alcohol use. Review of Systems Patient does not have any tremors or shakiness currently. Chest tightness seems to be resolved, denies any shortness of breath or abdominal pain or nausea vomiting. Physical Exam Vital Signs: Vital Signs: Last Vital Signs Temp 98.8 F 05/20/22 11:31 Pulse 89 05/20/22 11:31 Resp 20 05/20/22 11:31 BP 150/83 H 05/20/22 11:31 Pulse Ox 96 05/20/22 11:31 O2 Del Method 05/20/22 11:31 BMI result Body Mass Index 25.0 Appearance: Alert.? Oriented X3.? not in distress.?. cvs: rrr, [id number]. res: clear to auscultation ,no rhonchii or wheezing abd: no rebound or guarding ,nt, bs present. ext pulses present , no cyanosis . neuro: axo3 , nonfocal. Objective Data Active Medications Amlodipine Besylate (Amlodipine Besylate 10 Mg Tablet) 10 mg PO DAILY [facility]; Protocol Atorvastatin Calcium (Atorvastatin Calcium 40 Mg Tablet) 40 mg PO BEDTIME [facility] Famotidine (Famotidine 20 Mg Tablet) 20 mg PO BID [facility] Last Admin: 05/20/22 09:22 Dose: 20 mg Documented By: HARMEET Folic Acid (Folic Acid 1 Mg Tablet) 1 mg PO DAILY [facility] Last Admin: 05/20/22 09:22 Dose: 1 mg Documented By: HARMEET Dextrose/Sodium Chloride (D51/2ns) 1,000 mls @ 100 mls/hr IVCONT .Q10H [facility] Last Admin: 05/20/22 06:30 Dose: 100 mls/hr Documented By: JESSICA Labetalol HCl (Labetalol Hcl 100 Mg/20 Ml Vial) 10 mg IVPUSH Q4H PRN PRN Reason: BP>140/90 Lisinopril (Lisinopril 40 Mg Tablet) 40 mg PO DAILY [facility]; Protocol Last Admin: 05/20/22 09:22 Dose: 40 mg Documented By: HARMEET Melatonin (Melatonin 3 Mg Tablet) 3 mg PO BEDTIME [facility] Metoprolol Succinate (Metoprolol Succinate Er 50 Mg Tab.Er.24h) 50 mg PO DAILY [facility]; Protocol Last Admin: 05/20/22 09:22 Dose: 50 mg Documented By: HARMEET Multivitamins/Vitamin C (Multivitamin Tablet) 1 tab PO DAILY [facility] Last Admin: 05/20/22 10:22 Dose: 1 tab Documented By: TIFFANY Pharmacy Consult (Consult Rx Etoh Phenob Im/Po) 1 each MISCELLANE ONCE PRN; Protocol PRN Reason: Consult order Phenobarbital (Phenobarbital 15 Mg Tablet) 45 mg PO BID [facility] Stop: 05/22/22 09:01 Phenobarbital (Phenobarbital 15 Mg Tablet) 15 mg PO BID [facility] Stop: 05/24/22 09:01 Phenobarbital (Phenobarbital 15 Mg Tablet) 15 mg PO DAILY [facility] Stop: 05/26/22 09:01 Quetiapine Fumarate (Quetiapine Fumarate 50 Mg Tablet) 50 mg PO BEDTIME [facility] Sodium Chloride (0.9 % Sodium Chloride Flush 3 Ml Syringe) 3 ml IVFLUSH QSHIFT [facility] Last Admin: 05/20/22 07:17 Dose: Not Given Documented By: ALEXANDRU Non-Admin Reason: IV Running Thiamine HCl (Thiamine Hcl 100 Mg Tablet) 100 mg PO DAILY [facility] Last Admin: 05/20/22 09:22 Dose: 100 mg Documented By: HARMEET Labs 05/20/22 00:11 05/20/22 08:57 Labs: Laboratory Results - last 24 hr 05/20/22 05/20/22 05/20/22 00:11 00:11 00:11 MCV 98.9 H MCH 34.6 H MCHC 35.0 RDW 12.9 Plt Count 309 MPV 9.7 Immature Gran % (Auto) 0.4 Neut % (Auto) 82.5 H Lymph % (Auto) 12.2 L [place] % (Auto) 4.3 Eos % (Auto) 0.2 Baso % (Auto) 0.4 Lymph # (Auto) 1.6 [place] # (Auto) 0.6 Eos # (Auto) 0.0 Baso # (Auto) 0.1 Abs Immat Gran (auto) 0.05 H Absolute Neuts (auto) 10.5 H Absolute Nucleated RBC 0.000 Nucleated RBC % (auto) 0.0 Anion Gap 23 H Estim Creat Clear Calc 90.7 Estimated GFR > 60 Random Glucose 128 H Lactic Acid Calcium 9.5 Total Bilirubin 1.0 Direct Bilirubin 0.3 AST 16 ALT 9 Alkaline Phosphatase 109 Troponin I High Sens 58.8 H* Total Protein 7.3 Albumin 4.3 Lipase 14 Ethyl Alcohol 67 COVID-19 ([facility]) COVID-19 Clin Com 05/20/22 05/20/22 05/20/22 02:58 05:04 06:15 MCV MCH MCHC RDW Plt Count MPV Immature Gran % (Auto) Neut % (Auto) Lymph % (Auto) [place] % (Auto) Eos % (Auto) Baso % (Auto) Lymph # (Auto) [place] # (Auto) Eos # (Auto) Baso # (Auto) Abs Immat Gran (auto) Absolute Neuts (auto) Absolute Nucleated RBC Nucleated RBC % (auto) Anion Gap Estim Creat Clear Calc Estimated GFR Random Glucose Lactic Acid 1.9 Calcium Total Bilirubin Direct Bilirubin AST ALT Alkaline Phosphatase Troponin I High Sens 77.5 H* Total Protein Albumin Lipase Ethyl Alcohol COVID-19 ([facility]) Negative COVID-19 Clin Com See Note 05/20/22 08:57 MCV MCH MCHC RDW Plt Count MPV Immature Gran % (Auto) Neut % (Auto) Lymph % (Auto) [place] % (Auto) Eos % (Auto) Baso % (Auto) Lymph # (Auto) [place] # (Auto) Eos # (Auto) Baso # (Auto) Abs Immat Gran (auto) Absolute Neuts (auto) Absolute Nucleated RBC Nucleated RBC % (auto) Anion Gap 21 H Estim Creat Clear Calc 90.7 Estimated GFR > 60 Random Glucose 150 H Lactic Acid Calcium 9.0 Total Bilirubin Direct Bilirubin AST ALT Alkaline Phosphatase Troponin I High Sens Total Protein Albumin Lipase Ethyl Alcohol COVID-19 ([facility]) COVID-19 Clin Com Assessment and Plan (1) NSTEMI (non-ST elevated myocardial infarction): Status: Acute (2) HTN (hypertension): Status: Acute (3) Alcohol use disorder: Status: Acute Plan 51-year-old female with a past medical history of hypertension, hyperlipidemia, CAD status post PCI, cerebral aneurysm-times per, history of intracranial bleed status post craniotomy; alcohol use disorder; anxiety, depression presented to the hospital today with a chief complaint of chest pain.? Noted to be in hypertensive urgency.? Admitted for further management.? chest pain /elevated troponins :nstemi likely demand related due to uncontrolled htn. continue lisinopril, metoprolol changed to Coreg for better blood pressure control,aspirin ,bb, amlodipine, continue atorvastatin.? echo on sunday cardiology eval noted. Hypertensive uncontrolled: Patient denies any headaches. Continue home lisinopril,coreg, amlodipine.? IV labetalol p.r.n..? Goal blood pressure less than 140/90.? Gradually improving. Abnormal CT head:? Noted to have focal hypodensity/small vessel ischemic disease.? Exam was nonfocal.? Neurology consult-appreciated -likely new ct finding due to Hypertensive small vessel disease. ?no specific intervention is required.? Control of blood pressure is recommended.? Alcohol counseling. acute Anion gap metabolic acidosis:? No unclear etiology.? improving Lactate levels normal ,? Initially presumed to be secondary to alcoholic ketosis.? Gentle IV fluids. Alcohol use disorder:? Patient was started on phenobarb protocol in the ER.? Patient denies excessive use of alcohol.? Thiamine folate and multivitamins History of CAD: Continue home aspirin, statin, beta-kelsea History of depression: Continue home escitalopram GI prophylaxis:? Pepcid DVT prophylaxis:? [facility] devices. inpatient need:chest pain,uncontrolled htn -need blood pressure monitering and workup for chest pain pending Time Spent With Patient Time: Total time managing care of this patient today ____ minutes. Quality Stroke Does the patient have a stroke diagnosis?: No VTE Prior VTE?: No VTE Risk Level:: Medical - moderate - high VTE Device Contraindication: Treatment Not Indicated VTE Drug Contraindication: N/A - Med Ordered
--- NOTE | 2022-05-20 12:55 | P.CNNE_ITS ---
History of Present Illness Data of Consult Service Date: 05/20/22 Primary Care Provider: Unknown Physician HPI Reason for consult: Chest pain. Evaluate Brain CT abnormality This is a 51-year-old female with a past medical history of hypertension, hyperlipidemia, CAD status post PCI, ruptured cerebral aneurysm-times intracranial bleed status post craniotomy, bilateral coiling of cerebral aneurysm done 10 yrs ago at [facility]; alcohol use disorder; anxiety, depression presented to the hospital today with a chief complaint of left upper chest pain.? Patient mentioned that she had chest pain prior to coming to the hospital, located in the left side of the chest, radiating to the left arm; also complains of abdominal discomfort associated nausea .? Mentions that she had been drinking prior to coming to the hospital.?No known history of stroke other than the cerebral hemorrhage. She denies any headache dizziness or lateralized weakness or numbness. CT scan of the brain was reviewed. There is an old area of focal encephalopathy which is a lacunar stroke in the left centrum semiovale which is more than 6 months old but new compared to the CT scan of most likely related to small vessel dissease..? Review of Systems Review of Systems: Patient does not have any tremors or shakiness currently. Chest tightness seems to be resolved, denies any shortness of breath or abdominal pain or nausea vomiting. Yes all other systems are reviewed and are negative Constitutional: Constitutional: Reports as per HPI and Reports no additional constitutional complaints Eyes: Eyes: Reports as per HPI and Denies no additional eye complaints ENT: Denies system reviewed and no additional complaints, except as documented and Reports as per HPI Cardiovascular: Cardiovascular: Reports as per HPI, Reports no additional cardiovascular complaints, Denies acrocyanosis, Denies cool extremities, Reports chest pain, Denies leg edema, Denies lightheadedness, Denies palpitations and Denies dyspnea Respiratory: Respiratory: Reports as per HPI, Denies no additional respiratory complaints and Denies dyspnea Gastrointestinal: Gastrointestinal: Reports as per HPI and Denies no additional gastrointestinal complaints Musculoskeletal: Musculoskeletal: Reports no additional musculoskeletal complaints and Reports as per HPI Integumentary/Breasts: Skin/Breast: Reports system reviewed and no additional complaints, except as docu Neurologic: Reports system reviewed and no additional complaints, except as documented and Reports as per HPI Psychiatric: Psychiatric: Reports no additional psychiatric complaints and Reports as per HPI Endocrine: Endocrine: Reports no additional endocrine complaints, Reports as per HPI and Denies palpitations Hematologic/Lymphatic: Hematologic/Lymphatic: Reports no additional hematologic/lymphatic complaints and Reports as per HPI Allergic/Immunologic: Allergic/Immunologic: Reports no additional allergic/immunologic complaints and Reports as per HPI [facility] Past Medical History Medical History Cerebral aneurysm HTN (hypertension) Myocardial infarct Family History Family History (Updated 05/20/22 @ 10:25 by Samuel Cheema MD) Father CAD (coronary artery disease) Surgical History Surgical History H/O craniotomy H/O heart artery stent Social History Social History Household Members: Significant Other Housing: Apartment Do you presently have visiting nurse or other home services: No Alcohol intake: current Alcohol intake frequency: a few times a month Alcohol type: hard liquor Patient Tobacco Use Status: Current everyday Tobacco user Tobacco use type: Cigarette Cigarette Packs Per Day: 0.5 Cigarettes Per Day: 10.0 Years Smoked: 6 Smoked in Last 30 Days: Yes e-Cigarette/Vaping Use: Never Used Patient Interested in Nicotine Replacement: No Patient Given Instructions on How to Stop Smoking: No Second Hand Smoke Exposure: Yes Use of substances other than those prescribed or required for medical reasons: Yes Substance Use Type: Marijuana Substance Use Frequency: Weekly Last Used Substance: Days (ago) Last Used Substance Other:: marijuana Currently Displaying Signs/Symptoms of Drug Intoxication Withdrawal: No Any prior treatment program specific to substance use: No Have you been hit, kicked, punched, or otherwise hurt by someone within the past year? If so, by whom?: No Do you feel safe in your current relationship?: Yes Is there a partner from a previous relationship who is making you feel unsafe now?: No Are you made to feel afraid or neglected: No Advance Directives: No Advance Directives Information Provided: Yes Do you have thoughts of harming others: None Do you have a plan to hurt others: No Plan Recently lost weight without trying: No How much weight loss: Not applicable Eating poorly because of decreased appetite: No Nutrition screen score: 0 Nutrition Risks: No Nutritional Risk Patient : No : No Poor oral hygiene: No service: No Current occupational status: unemployed Meds Allergies Allergy/AdvReac Type Severity Reaction Status Date / Time Iodinated Contrast Media Allergy Mild RASH Verified 10/12/21 03:04 [CONTRAST, IV] DECONGESTIONS Allergy Unknown INCREASED Uncoded 10/12/21 03:04 HEART RATE Active Medications: Current Medications Amlodipine Besylate (Amlodipine Besylate 10 Mg Tablet) 10 mg PO DAILY [facility]; Protocol Atorvastatin Calcium (Atorvastatin Calcium 40 Mg Tablet) 40 mg PO BEDTIME [facility] Carvedilol (Carvedilol 12.5 Mg Tablet) 12.5 mg PO BID [facility]; Protocol Famotidine (Famotidine 20 Mg Tablet) 20 mg PO BID [facility] Last Admin: 05/20/22 09:22 Dose: 20 mg Folic Acid (Folic Acid 1 Mg Tablet) 1 mg PO DAILY [facility] Last Admin: 05/20/22 09:22 Dose: 1 mg Dextrose/Sodium Chloride (D51/2ns) 1,000 mls @ 100 mls/hr IVCONT .Q10H [facility] Last Admin: 05/20/22 06:30 Dose: 100 mls/hr Labetalol HCl (Labetalol Hcl 100 Mg/20 Ml Vial) 10 mg IVPUSH Q4H PRN PRN Reason: BP>140/90 Lisinopril (Lisinopril 40 Mg Tablet) 40 mg PO DAILY [facility]; Protocol Last Admin: 05/20/22 09:22 Dose: 40 mg Melatonin (Melatonin 3 Mg Tablet) 3 mg PO BEDTIME [facility] Multivitamins/Vitamin C (Multivitamin Tablet) 1 tab PO DAILY [facility] Last Admin: 05/20/22 10:22 Dose: 1 tab Pharmacy Consult (Consult Rx Etoh Phenob Im/Po) 1 each MISCELLANE ONCE [facility]N; Protocol PRN Reason: Consult order Phenobarbital (Phenobarbital 15 Mg Tablet) 45 mg PO BID [facility] Stop: 05/22/22 09:01 Phenobarbital (Phenobarbital 15 Mg Tablet) 15 mg PO BID [facility] Stop: 05/24/22 09:01 Phenobarbital (Phenobarbital 15 Mg Tablet) 15 mg PO DAILY [facility] Stop: 05/26/22 09:01 Quetiapine Fumarate (Quetiapine Fumarate 50 Mg Tablet) 50 mg PO BEDTIME [facility] Sodium Chloride (0.9 % Sodium Chloride Flush 3 Ml Syringe) 3 ml IVFLUSH QSHIFT [facility] Last Admin: 05/20/22 07:17 Dose: Not Given Thiamine HCl (Thiamine Hcl 100 Mg Tablet) 100 mg PO DAILY [facility] Last Admin: 05/20/22 09:22 Dose: 100 mg Home Medications Medication Instructions Recorded Confirmed Last Taken Type amlodipine 10 mg tablet (Norvasc) 10 mg PO DAILY 04/11/22 05/20/22 05/18/22 History aspirin 81 mg tablet,delayed 1 tab PO DAILY 04/11/22 05/20/22 05/18/22 History release atorvastatin 40 mg tablet 2 tab PO DAILY 04/11/22 05/20/22 05/18/22 History lisinopril 40 mg tablet 1 tab PO DAILY 04/11/22 05/20/22 05/18/22 History metoprolol succinate 50 mg 1 tab PO DAILY 04/11/22 05/20/22 05/18/22 History tablet,extended release 24 hr quetiapine 50 mg tablet 1 tab PO BEDTIME 04/11/22 05/20/22 05/18/22 History acetaminophen 325 mg tablet 650 mg PO Q6H PRN Pain 05/20/22 05/20/22 05/18/22 History escitalopram oxalate 20 mg tablet 1 tab PO DAILY 05/20/22 05/20/22 05/18/22 His tory ibuprofen 200 mg tablet 400 mg PO Q8H PRN Pain 05/20/22 05/20/22 05/18/22 History melatonin 3 mg tablet 1 tab PO BEDTIME 05/20/22 05/20/22 05/18/22 History Physical Exam Vital Signs: Vital Signs: Last Vital Signs Temp 98.8 F 05/20/22 11:31 Pulse 89 05/20/22 11:31 Resp 20 05/20/22 11:31 BP 150/83 H 05/20/22 11:31 Pulse Ox 96 05/20/22 11:31 O2 Del Method 05/20/22 11:31 BMI result Body Mass Index 25.0 Const: Other: Appearance: Alert. Oriented X3. No acute distress. Eyes: Pupils equal, round and reactive to light. ENT: Pharynx normal. Neck: Normal inspection. Neck supple. No lymph nodes noted. No crepitus CVS: Normal heart rate and rhythm. Pulses normal. Normal S1 and S2 Respiratory: No respiratory distress. Breath sounds normal. No Wheezing. No rales Abdomen: Soft and nontender. No rigidity. No distention. Skin: Skin warm and dry. Normal skin color. Normal skin turgor. Extremities: No lower extremity edema. No Lacerations. No Rash Neuro: Oriented X 3. No motor deficit. No sensory deficit. Moving all extremities. No slurred speech. CN 2 through 12 grossly intact Psych: calm, cooperative, seems anxious General: comfortable and no acute distress Orientation/consciousness: patient oriented x3 HEENT: Other: Unremarkable Head: Yes normal to inspection Neck: Neck: Yes normal visual inspection Chest: Chest palpation & inspection: normal inspection of the chest Resp: Auscultation: clear to auscultation bilaterally Cardio: Palpation: normal PMI Heart sounds: S1 normal heart sound present, S2 normal heart sound present, no gallops, no murmurs and no rubs GI: Palpation (GI): Soft to palpation Back/Spine/Pelvis: Other: unremarkable Skin: General skin exam: no rashes or lesions noted Neuro: Other: Normal nonfocal neurological examination General: patient oriented x3 Extrem: General: Yes normal to inspection Psych: Mental Status: mental status grossly normal Results Labs 05/20/22 00:11 05/20/22 08:57 Labs: Short CBC 05/20/22 Range/Units 00:11 WBC 12.7 H (4.8-10.8) X10*3/uL Hgb 15.1 (12.0-16.0) g/dl Hct 43.2 (37.0-47.0) % Plt Count 309 (160-400) X10*3/uL BMP 05/20/22 05/20/22 00:11 08:57 Sodium 140 139 Potassium 3.4 3.8 Chloride 105 103 Carbon Dioxide 15 L 19 L BUN 7 L 7 L Creatinine 0.66 0.66 Calcium 9.5 9.0 Liver Function 05/20/22 Range/Units 00:11 Total Bilirubin 1.0 (0.0-1.0) mg/dL Direct Bilirubin 0.3 (0.0-0.5) mg/dL AST 16 (5-31) U/L ALT 9 (0-31) U/L Alkaline Phosphatase 109 (39-117) U/L Albumin 4.3 (3.5-5.0) g/dL Assessment and Plan (1) NSTEMI (non-ST elevated myocardial infarction): Status: Acute (2) HTN (hypertension): Status: Acute (3) Alcohol use disorder: Status: Acute (4) Cerebral microvascular disease: Status: Acute CT scan of the brain was reviewed. There is an old area of focal encephalopathy which is a lacunar stroke in the left centrum semiovale which is more than 6 months old but new compared to the CT scan of 2019 most likely related to Hypertensive small vessel disease.Stable coils from previous intervention for aneurysms 10 years ago Recommendation no specific intervention is required. Control of blood pressure is recommended. Alcohol counseling. Plan 51-year-old female with a past medical history of hypertension, hyperlipidemia, CAD status post PCI, cerebral aneurysm-times per, history of intracranial bleed status post craniotomy; alcohol use disorder; anxiety, depression presented to the hospital today with a chief complaint of chest pain.? Noted to be in hypertensive urgency.? Admitted for further management.? chest pain /elevated troponins :nstemi likely demand related due to uncontrolled htn. continue lisinopril, metoprolol changed to Coreg for better blood pressure control, amlodipine, continue atorvastatin.? Hypertensive uncontrolled: Patient denies any headaches. Continue home lisinopril,coreg, amlodipine.? IV labetalol p.r.n..? Goal blood pressure less than 140/90.? Gradually improving. Abnormal CT head:? Noted to have focal hypodensity/small vessel ischemic disease.? Exam was nonfocal.? also need to check with neuro -ok to continue aspirin. Neurology consult acute Anion gap metabolic acidosis:? No unclear etiology.? improving Lactate levels normal ,? Initially presumed to be secondary to alcoholic ketosis.? Gentle IV fluids. Alcohol use disorder:? Patient was started on phenobarb protocol in the ER.? Patient denies excessive use of alcohol.? Thiamine folate and multivitamins History of CAD: Continue home aspirin, statin, beta-kelsea History of depression: Continue home escitalopram GI prophylaxis:? Pepcid DVT prophylaxis:? Subcu heparin Code status:? Full code Time Spent With Patient Time: Total time managing care of this patient today ____ minutes. Procedures Date of Service Date of Service: 05/20/22
[2022-05-20] MEDS: Aspirin Enteric Coated 81 MG TABLET.DR PO (16:03)
[2022-05-20] MEDS: PHENobarbitaL 15 MG TABLET 45 MG PO (20:07)
[2022-05-20] MEDS: carvediloL 12.5 MG TABLET PO (20:09)
[2022-05-20] MEDS: QUEtiapine Fumarate 50 MG TABLET PO (20:09)
[2022-05-20] MEDS: Melatonin 3 MG TABLET PO (20:09)
[2022-05-20] MEDS: Atorvastatin Calcium 40 MG TABLET PO (20:09)
[2022-05-21 03:50] VITALS: BP 132/76; PULSE 67; RESP 18; TEMP 37.1; O2SAT 92
[2022-05-21] MEDS: Dextrose 5 % and 0.45 % NaCl 1,000 ML 100 ML IVCONT (06:18)
[2022-05-21] MEDS: Multivitamin TABLET 1 TAB PO (07:55)
[2022-05-21] MEDS: PHENobarbitaL 15 MG TABLET 45 MG PO ×2 (07:55→21:09)
[2022-05-21] MEDS: lisinopriL 40 MG TABLET PO (07:56)
[2022-05-21] MEDS: Aspirin Enteric Coated 81 MG TABLET.DR PO (07:57)
[2022-05-21] MEDS: amLODIPine Besylate 10 MG TABLET PO (07:57)
[2022-05-21] MEDS: carvediloL 12.5 MG TABLET PO ×2 (07:57→21:09)
[2022-05-21] MEDS: Thiamine HCL 100 MG TABLET PO (07:57)
[2022-05-21] MEDS: Folic Acid 1 MG TABLET PO (07:57)
[2022-05-21] MEDS: Famotidine 20 MG TABLET PO ×2 (07:57→21:09)
[2022-05-21 08:00] VITALS: BP 182/96; PULSE 70; RESP 20; TEMP 36.6; O2SAT 96
[2022-05-21 08:04] LABS: Alanine Aminotransferase 8 U/L (0-31); Albumin Level 3.8 g/dL (3.5-5.0); Alkaline Phosphatase 92 U/L (39-117); Aspartate Amino Transferase 14 U/L (5-31); Bilirubin Total 1.9 mg/dL (0.0-1.0); Blood Urea Nitrogen 4 mg/dL (9-16); Calcium 8.8 mg/dL (8.4-10.2); Creatinine Clr Calc Pharmacy 93.5; Estimated Glomerular Filt Rate > 60; Glucose Random 128 mg/dL (60-115); Total Protein 6.5 g/dL (6.5-8.0)
[2022-05-21 08:21] LABS: Anion Gap 14 (12-20); Carbon Dioxide 23 mmol/L (22-29); Chloride 104 mmol/L (96-108); Potassium 3.5 mmol/L (3.3-5.1); Sodium 137 mmol/L (135-145)
--- NOTE | 2022-05-21 11:05 | MHC.CM.PN ---
IMM DELIVERED PT LIVES WITH FAMILY IN AN APT. INDEPENDENT AT BASELINE + COVID VAX 2 + HCP (PT STATES IS ON FILE HERE AT [facility]) PCP [facility] IN [facility]. DP: HOME, NO SERVICES ANTICIPATED. FAMILY WILL TRANSPORT HOME.
--- NOTE | 2022-05-21 11:08 | PM.PNCARD ---
Subjective Subjective Date of Service: 05/21/22 Interval history: She states she is feeling better. Blood pressure did get better but went up again. Not clear if there is any withdrawal components. Review of Systems Review of Systems Yes all other systems are reviewed and are negative Constitutional: Reports as per HPI and Reports no additional constitutional complaints Eyes: Reports as per HPI and Denies no additional eye complaints Denies system reviewed and no additional complaints, except as documented and Reports as per HPI Cardiovascular: Reports as per HPI, Reports no additional cardiovascular complaints, Denies acrocyanosis, Denies cool extremities, Denies chest pain, Denies leg edema, Denies lightheadedness, Denies palpitations and Denies dyspnea Respiratory: Reports as per HPI, Denies no additional respiratory complaints and Denies dyspnea Gastrointestinal: Reports as per HPI and Denies no additional gastrointestinal complaints Genitourinary: Reports as per HPI Musculoskeletal: Reports no additional musculoskeletal complaints and Reports as per HPI Skin/Breast: Reports system reviewed and no additional complaints, except as docu Reports system reviewed and no additional complaints, except as documented and Reports as per HPI Psychiatric: Reports no additional psychiatric complaints and Reports as per HPI Endocrine: Reports no additional endocrine complaints, Reports as per HPI and Denies palpitations Hematologic/Lymphatic: Reports no additional hematologic/lymphatic complaints and Reports as per HPI Allergic/Immunologic: Reports no additional allergic/immunologic complaints and Reports as per HPI Physical Exam Vital Signs: Last Vital Signs Temp 97.9 F 05/21/22 08:00 Pulse 70 05/21/22 08:00 Resp 20 05/21/22 08:00 BP 182/96 H 05/21/22 08:00 Pulse Ox 96 05/21/22 08:00 O2 Del Method 05/21/22 08:00 BMI result Body Mass Index 25.0 Const General: comfortable and no acute distress Orientation/consciousness: patient oriented x3 HEENT Other: Unremarkable Head: Yes normal to inspection Neck Neck: Yes normal visual inspection Chest Chest palpation & inspection: normal inspection of the chest Resp Auscultation: clear to auscultation bilaterally Cardio Palpation: normal PMI Heart sounds: S1 normal heart sound present, S2 normal heart sound present, no gallops, no murmurs and no rubs GI Palpation (GI): Soft to palpation Back/Spine/Pelvis Other: unremarkable Skin General skin exam: no rashes or lesions noted Neuro General: patient oriented x3 Extrem General: Yes normal to inspection Psych Mental Status: mental status grossly normal Objective Labs and Meds 05/20/22 00:11 05/21/22 07:04 Lab results: Laboratory Results - last 24 hr 05/20/22 05/21/22 08:57 07:04 Sodium 139 137 Potassium 3.8 3.5 Chloride 103 104 Carbon Dioxide 19 L 23 Anion Gap 21 H 14 BUN 7 L 4 L Creatinine 0.66 0.64 Estim Creat Clear Calc 90.7 93.5 Estimated GFR > 60 > 60 Random Glucose 150 H 128 H Calcium 9.0 8.8 Total Bilirubin 1.9 H AST 14 ALT 8 Alkaline Phosphatase 92 Total Protein 6.5 Albumin 3.8 Progress Note: A&P Assessment and plan (1) Hypertensive emergency: Status: Acute (2) NSTEMI (non-ST elevated myocardial infarction): Status: Acute (3) Alcohol use disorder: Status: Acute (4) Coronary artery disease: Status: Acute Plan Blood pressures are quite high upon arrival but improved significantly. Overnight readings were 119/78 mm Hg and 132/76 mm Hg. However, it is going up again at 182/96 mm Hg. Not sure if there is any alcohol withdrawal components but patient denies that. Slight troponin leak is probably from high blood pressure and demand. There is also history of coronary disease/prior PCI but unknown anatomy. For blood pressure management, she was on amlodipine/lisinopril/metoprolol at home but unknown compliance. Currently, metoprolol switch to carvedilol. Additionally, lisinopril and amlodipine. Also on a small dose of hydrochlorothiazide. Further changes based on blood pressure trend. Echocardiogram in the morning. Will follow up with you. Time Spent With Patient Time: Total time managing care of this patient today 45 minutes. Progress Note: Quality Stroke Does the patient have a stroke diagnosis?: No Procedures Date of Service Date of Service: 05/21/22
[2022-05-21 11:36] VITALS: BP 141/76; PULSE 74; RESP 20; TEMP 36.7; O2SAT 97
[2022-05-21] MEDS: hydroCHLOROthiazide 12.5 MG TABLET PO (11:57)
--- NOTE | 2022-05-21 13:37 | HO.PM.IMPN ---
Subjective Subjective Date of Service: 05/21/22 Interval History: htn uncontrolled, elevated troponin, chest tightness, alcohol use. Review of Systems feels anxious ,mild shskiness ? Chest tightness seems to be resolved, denies any shortness of breath or abdominal pain or nausea vomitin Physical Exam Vital Signs: Vital Signs: Last Vital Signs Temp 98.1 F 05/21/22 11:36 Pulse 74 05/21/22 11:36 Resp 20 05/21/22 11:36 BP 141/76 H 05/21/22 11:36 Pulse Ox 97 05/21/22 11:36 O2 Del Method 05/21/22 11:36 BMI result Body Mass Index 25.0 ?Appearance: Alert.? Oriented X3.? not in distress.?. cvs: rrr, [id number]. res: clear to auscultation ,no rhonchii or wheezing abd: no rebound or guarding ,nt, bs present. ext pulses present , no cyanosis . neuro: axo3 , nonfocal. Objective Data Active Medications Amlodipine Besylate (Amlodipine Besylate 10 Mg Tablet) 10 mg PO DAILY [facility]; Protocol Last Admin: 05/21/22 07:57 Dose: 10 mg Documented By: TIFFANY Aspirin (Aspirin Enteric Coated 81 Mg Tablet.) 81 mg PO DAILY [facility] Last Admin: 05/21/22 07:57 Dose: 81 mg Documented By: TIFFANY Atorvastatin Calcium (Atorvastatin Calcium 40 Mg Tablet) 40 mg PO BEDTIME [facility] Last Admin: 05/20/22 20:09 Dose: 40 mg Documented By: STEPHENIE Carvedilol (Carvedilol 12.5 Mg Tablet) 12.5 mg PO BID [facility]; Protocol Last Admin: 05/21/22 07:57 Dose: 12.5 mg Documented By: TIFFANY Famotidine (Famotidine 20 Mg Tablet) 20 mg PO BID [facility] Last Admin: 05/21/22 07:57 Dose: 20 mg Documented By: TIFFANY Folic Acid (Folic Acid 1 Mg Tablet) 1 mg PO DAILY [facility] Last Admin: 05/21/22 07:57 Dose: 1 mg Documented By: TIFFANY Hydrochlorothiazide (Hydrochlorothiazide 12.5 Mg Tablet) 12.5 mg PO DAILY [facility]; Protocol Last Admin: 05/21/22 11:57 Dose: 12.5 mg Documented By: TIFFANY Labetalol HCl (Labetalol Hcl 100 Mg/20 Ml Vial) 10 mg IVPUSH Q4H PRN PRN Reason: BP>140/90 Lisinopril (Lisinopril 40 Mg Tablet) 40 mg PO DAILY [facility]; Protocol Last Admin: 05/21/22 07:56 Dose: 40 mg Documented By: TIFFANY Melatonin (Melatonin 3 Mg Tablet) 3 mg PO BEDTIME [facility] Last Admin: 05/20/22 20:09 Dose: 3 mg Documented By: STEPHENIE Multivitamins/Vitamin C (Multivitamin Tablet) 1 tab PO DAILY [facility] Last Admin: 05/21/22 07:55 Dose: 1 tab Documented By: TIFFANY Pharmacy Consult (Consult Rx Etoh Phenob Im/Po) 1 each MISCELLANE ONCE PRN; Protocol PRN Reason: Consult order Phenobarbital (Phenobarbital 15 Mg Tablet) 45 mg PO BID [facility] Stop: 05/22/22 09:01 Last Admin: 05/21/22 07:55 Dose: 45 mg Documented By: TIFFANY Phenobarbital (Phenobarbital 15 Mg Tablet) 15 mg PO BID [facility] Stop: 05/24/22 09:01 Phenobarbital (Phenobarbital 15 Mg Tablet) 15 mg PO DAILY [facility] Stop: 05/26/22 09:01 Quetiapine Fumarate (Quetiapine Fumarate 50 Mg Tablet) 50 mg PO BEDTIME [facility] Last Admin: 05/20/22 20:09 Dose: 50 mg Documented By: STEPHENIE Sodium Chloride (0.9 % Sodium Chloride Flush 3 Ml Syringe) 3 ml IVFLUSH QSHIFT [facility] Last Admin: 05/21/22 07:55 Dose: Not Given Documented By: TIFFANY Non-Admin Reason: IV Running Thiamine HCl (Thiamine Hcl 100 Mg Tablet) 100 mg PO DAILY [facility] Last Admin: 05/21/22 07:57 Dose: 100 mg Documented By: TIFFANY Labs 05/20/22 00:11 05/21/22 07:04 Labs: Laboratory Results - last 24 hr 05/21/22 07:04 Anion Gap 14 Estim Creat Clear Calc 93.5 Estimated GFR > 60 Random Glucose 128 H Calcium 8.8 Total Bilirubin 1.9 H AST 14 ALT 8 Alkaline Phosphatase 92 Total Protein 6.5 Albumin 3.8 Assessment and Plan (1) NSTEMI (non-ST elevated myocardial infarction): Status: Acute (2) HTN (hypertension): Status: Acute (3) Alcohol use disorder: Status: Acute Plan 51-year-old female with a past medical history of hypertension, hyperlipidemia, CAD status post PCI, cerebral aneurysm-times per, history of intracranial bleed status post craniotomy; alcohol use disorder; anxiety, depression presented to the hospital today with a chief complaint of chest pain.? Noted to be in hypertensive urgency.? Admitted for further management.? chest pain /elevated troponins :nstemi likely demand related due to uncontrolled htn. continue lisinopril, metoprolol changed to Coreg for better blood pressure control,aspirin ,bb, amlodipine, continue atorvastatin.? echo on sunday cardiology eval noted. Hypertensive uncontrolled: Patient denies any headaches. Continue home lisinopril,coreg, amlodipine.? IV labetalol p.r.n..? Goal blood pressure less than 140/90.? Gradually improving. Abnormal CT head:? Noted to have focal hypodensity/small vessel ischemic disease.? Exam was nonfocal.? Neurology consult-appreciated -likely new ct finding due to Hypertensive small vessel disease. ?no specific intervention is required.? Control of blood pressure is recommended.? Alcohol counseling. acute Anion gap metabolic acidosis:? No unclear etiology.? improving Lactate levels normal ,? Initially presumed to be secondary to alcoholic ketosis.? Gentle IV fluids. Alcohol use disorder: moniter julianna ,mild withdrawal. ? Patient was started on phenobarb protocol in the ER.? Patient denies excessive use of alcohol.? Thiamine folate and multivitamins History of CAD: Continue home aspirin, statin, beta-kelsea History of depression: Continue home escitalopram GI prophylaxis:? Pepcid DVT prophylaxis:? [facility] devices. inpatient need:chest pain,uncontrolled htn -need blood pressure monitering and workup for chest pain pending Time Spent With Patient Time: Total time managing care of this patient today ____ minutes. Quality Stroke Does the patient have a stroke diagnosis?: No VTE Prior VTE?: No VTE Risk Level:: Medical - moderate - high VTE Device Contraindication: Treatment Not Indicated VTE Drug Contraindication: N/A - Med Ordered
--- NOTE | 2022-05-21 13:42 | HO.PM.IMPN ---
Subjective Subjective Date of Service: 05/21/22 Interval History: htn uncontrolled, elevated troponin, chest tightness, alcohol use. Review of Systems feels anxious ,mild shskiness ? Chest tightness seems to be resolved, denies any shortness of breath or abdominal pain or nausea vomitin Physical Exam Vital Signs: Vital Signs: Last Vital Signs Temp 98.1 F 05/21/22 11:36 Pulse 74 05/21/22 11:36 Resp 20 05/21/22 11:36 BP 141/76 H 05/21/22 11:36 Pulse Ox 97 05/21/22 11:36 O2 Del Method 05/21/22 11:36 BMI result Body Mass Index 25.0 Appearance: Alert.? Oriented X3.? not in distress.?. cvs: rrr, [id number]. res: clear to auscultation ,no rhonchii or wheezing abd: no rebound or guarding ,nt, bs present. ext pulses present , no cyanosis . neuro: axo3 , nonfocal. Objective Data Active Medications Amlodipine Besylate (Amlodipine Besylate 10 Mg Tablet) 10 mg PO DAILY [facility]; Protocol Last Admin: 05/21/22 07:57 Dose: 10 mg Documented By: TIFFANY Aspirin (Aspirin Enteric Coated 81 Mg Tablet.) 81 mg PO DAILY [facility] Last Admin: 05/21/22 07:57 Dose: 81 mg Documented By: TIFFANY Atorvastatin Calcium (Atorvastatin Calcium 40 Mg Tablet) 40 mg PO BEDTIME [facility] Last Admin: 05/20/22 20:09 Dose: 40 mg Documented By: STEPHENIE Carvedilol (Carvedilol 12.5 Mg Tablet) 12.5 mg PO BID [facility]; Protocol Last Admin: 05/21/22 07:57 Dose: 12.5 mg Documented By: TIFFANY Famotidine (Famotidine 20 Mg Tablet) 20 mg PO BID [facility] Last Admin: 05/21/22 07:57 Dose: 20 mg Documented By: TIFFANY Folic Acid (Folic Acid 1 Mg Tablet) 1 mg PO DAILY [facility] Last Admin: 05/21/22 07:57 Dose: 1 mg Documented By: TIFFANY Hydrochlorothiazide (Hydrochlorothiazide 12.5 Mg Tablet) 12.5 mg PO DAILY [facility]; Protocol Last Admin: 05/21/22 11:57 Dose: 12.5 mg Documented By: TIFFANY Labetalol HCl (Labetalol Hcl 100 Mg/20 Ml Vial) 10 mg IVPUSH Q4H PRN PRN Reason: BP>140/90 Lisinopril (Lisinopril 40 Mg Tablet) 40 mg PO DAILY [facility]; Protocol Last Admin: 05/21/22 07:56 Dose: 40 mg Documented By: TIFFANY Melatonin (Melatonin 3 Mg Tablet) 3 mg PO BEDTIME [facility] Last Admin: 05/20/22 20:09 Dose: 3 mg Documented By: STEPHENIE Multivitamins/Vitamin C (Multivitamin Tablet) 1 tab PO DAILY [facility] Last Admin: 05/21/22 07:55 Dose: 1 tab Documented By: TIFFANY Pharmacy Consult (Consult Rx Etoh Phenob Im/Po) 1 each MISCELLANE ONCE PRN; Protocol PRN Reason: Consult order Phenobarbital (Phenobarbital 15 Mg Tablet) 45 mg PO BID [facility] Stop: 05/22/22 09:01 Last Admin: 05/21/22 07:55 Dose: 45 mg Documented By: TIFFANY Phenobarbital (Phenobarbital 15 Mg Tablet) 15 mg PO BID [facility] Stop: 05/24/22 09:01 Phenobarbital (Phenobarbital 15 Mg Tablet) 15 mg PO DAILY [facility] Stop: 05/26/22 09:01 Quetiapine Fumarate (Quetiapine Fumarate 50 Mg Tablet) 50 mg PO BEDTIME [facility] Last Admin: 05/20/22 20:09 Dose: 50 mg Documented By: STEPHENIE Sodium Chloride (0.9 % Sodium Chloride Flush 3 Ml Syringe) 3 ml IVFLUSH QSHIFT [facility] Last Admin: 05/21/22 07:55 Dose: Not Given Documented By: TIFFANY Non-Admin Reason: IV Running Thiamine HCl (Thiamine Hcl 100 Mg Tablet) 100 mg PO DAILY [facility] Last Admin: 05/21/22 07:57 Dose: 100 mg Documented By: TIFFANY Labs 05/20/22 00:11 05/21/22 07:04 Labs: Laboratory Results - last 24 hr 05/21/22 07:04 Anion Gap 14 Estim Creat Clear Calc 93.5 Estimated GFR > 60 Random Glucose 128 H Calcium 8.8 Total Bilirubin 1.9 H AST 14 ALT 8 Alkaline Phosphatase 92 Total Protein 6.5 Albumin 3.8 Assessment and Plan (1) NSTEMI (non-ST elevated myocardial infarction): Status: Acute (2) HTN (hypertension): Status: Acute (3) Alcohol use disorder: Status: Acute Time Spent With Patient Time: Total time managing care of this patient today ____ minutes. Quality Stroke Does the patient have a stroke diagnosis?: No VTE Prior VTE?: No VTE Risk Level:: Medical - moderate - high VTE Device Contraindication: Treatment Not Indicated VTE Drug Contraindication: N/A - Med Ordered
[2022-05-21 16:00] VITALS: BP 127/78; PULSE 98; RESP 18; TEMP 37; O2SAT 98
[2022-05-21] MEDS: 0.9 % Sodium Chloride Flush 3 ML SYRINGE IVFLUSH ×2 (16:22→21:09)
[2022-05-21] MEDS: PHENobarbitaL sodium 130 MG/ML VIAL IM (18:42)
[2022-05-21 19:48] VITALS: BP 115/70; PULSE 62; RESP 18; TEMP 37; O2SAT 98
[2022-05-21] MEDS: Melatonin 3 MG TABLET PO (21:09)
[2022-05-21] MEDS: QUEtiapine Fumarate 50 MG TABLET PO (21:09)
[2022-05-21] MEDS: Atorvastatin Calcium 40 MG TABLET PO (21:09)
[2022-05-21 23:45] VITALS: BP 95/55; PULSE 52; RESP 20; TEMP 36.2; O2SAT 96
[2022-05-22] VITALS (8 sets, daily range): BP systolic 103–190; BP diastolic 59–101; PULSE 54–74; RESP 15–20; TEMP 36.2–36.8; O2SAT 92–98
--- NOTE | 2022-05-22 07:00 | CA_ITS ---
Transthoracic Echocardiogram Patient (Last, First, Middle): Rekha Chaudhary, Gender: Female Date of : 1970 Age: 51 Procedure Date: 05/22/2022 Procedure Type: Transthoracic Echocardiogram Location: [facility] [place] Height: 165.1 cm Weight: 68.04 kg BSA: 1.75 m2 Heart Rate: 57 bpm BP: 104 / 59 mmHg Head Of Research [employer] Insights: SB Referring MD: Samuel Cheema MD Symptoms: NSTEMI Study Quality: Adequate ECG Rhythm: Bradycardia Conclusions: - Normal left ventricular size and systolic function. There is mildly increased left ventricular wall thickness. The visually estimated ejection fraction is between 60-65%. - Normal right ventricular cavity size. There is mildly decreased right ventricular systolic function. - There is no evidence of pericardial effusion. Findings Left Ventricle Normal left ventricular size and systolic function. There is mildly increased left ventricular wall thickness. The visually estimated ejection fraction is between 60-65%. There is no evidence of regional wall motion abnormalities. Diastolic function is normal for age. There is severe septal asymmetric hypertrophy. Right Ventricle Normal right ventricular cavity size. There is mildly decreased right ventricular systolic function. Atria The left atrium is normal in size. The right atrium is normal in size. Aortic Valve Normal aortic valve structure and function. There is no aortic valve stenosis. There is no aortic valve regurgitation. Mitral Valve The mitral valve appears normal. There is no mitral valve regurgitation. There is no mitral valve stenosis. Pulmonic Valve The pulmonic valve is likely normal. Tricuspid Valve Likely normal tricuspid valve structure and function. Normal right atrial pressure. There is no evidence of pulmonary hypertension. Great Vessels All visible segments of the aorta are normal in size. The visualized portions of the pulmonary artery and branches are normal. Venous The inferior vena cava is normal in size and collapses greater than 50% with inspiration. Pericardium/Pleural There is no evidence of pericardial effusion. Prior Study Comparison No prior study available for comparison. Measurements 2D Linear Measurements IVSd: 1.44 0.6-0.9/0.6-1.0 cm LVIDd: 3.62 3.9-5.3/4.2-5.9 cm LVIDd Index: 2.07 2.4-3.2/2.2-3.1 cm/m2 LVIDs: 2.22 2.0-3.6 cm LVPWd: 1.17 0.7-1.1 cm LA Diam: 3.30 2.7-3.8/3.0-4.0 cm LAIDs Index: 1.89 1.5-2.3 cm/m2 LV Mass: 202.14 67-162/88-224 g LV Mass Index: 115.51 43-95/49-115 g/m2 LVOT Diam: 1.90 3.0+(-)1.3 cm 2D Systolic Function EF 4C: 58.10 >55% Mitral Valve MV Pk E: 0.52 MV PK A: 0.73 MV Decel Time: 273.00 E/A: 0.70 E'Lateral: 5.77 E'Medial: 6.53 E/E' Med: 7.90 E/E' Lat: 9.00 PHT: 80.00 MVA PHT: 2.75 Decel Newton: 1.90 Aortic Valve AoV Pk Eric: 1.30 AoV Pk Grad: 7.00 KEVIN: 2.08 LVOT LVOT Pk Eric: 0.95 LVOT Mn Eric: 0.63 LVOT VTI: 0.19 LVOT Pk Grad: 4.00 LVOT Mn Grad: 2.00 LVOT Diam: 1.90 LVOT Area: 2.84 Diastolic Function MV Pk E: 0.52 MV Pk A: 0.73 E/A: 0.70 E'Medial: 6.53 E/E' Med: 7.90 E' Laterial: 5.77 E/E' Lat: 9.00 Right Ventricle TAPSE (mm): 15.90 TVS' Eric: 7.07 Tricuspid Valve TR Pk Eric: 1.77 TR Pk Grad: 13.00 RA Press: 3.00 RVSP: 16.00 Great Vessels Aorta Sinus of Valsalva: 2.80 2.0-3.5 cm Ao Asc: 2.60 2.1-3.4 cm Pulmonary Veins Pulm Vein S/D 1.50 Pulmonary Valve PV Pk Eric: 0.85 Peak PV Grad: 3.00 Updated in Other Vendor System with Status of Final Chaim Savage MD electronically signed on 05/22/2022 1:59:56 PM with status of Final
[2022-05-22] MEDS: amLODIPine Besylate 10 MG TABLET PO (08:51)
[2022-05-22] MEDS: Famotidine 20 MG TABLET PO ×2 (08:51→20:48)
[2022-05-22] MEDS: PHENobarbitaL 15 MG TABLET 45 MG PO (08:51)
[2022-05-22] MEDS: carvediloL 12.5 MG TABLET PO (08:51)
[2022-05-22] MEDS: Thiamine HCL 100 MG TABLET PO (08:52)
[2022-05-22] MEDS: 0.9 % Sodium Chloride Flush 3 ML SYRINGE IVFLUSH ×2 (08:52→16:51)
[2022-05-22] MEDS: Folic Acid 1 MG TABLET PO (08:52)
[2022-05-22] MEDS: lisinopriL 40 MG TABLET PO (08:52)
[2022-05-22] MEDS: hydroCHLOROthiazide 12.5 MG TABLET PO (08:52)
[2022-05-22] MEDS: Multivitamin TABLET 1 TAB PO (08:52)
[2022-05-22] MEDS: Aspirin Enteric Coated 81 MG TABLET.DR PO (08:53)
--- NOTE | 2022-05-22 13:47 | MHC.CM.PN ---
EMR REVIEWED, PT W/ETOH WITHDRAWAL IMPROVING, PER HOSPITALIST PT WILL NEED ECCHO TODAY PT HAD C/O CHEST PAIN/TIIGHTNESS, NO PLAN FOR D/C AT THIS TIME, CM WILL CONT TO FOLLOW.
--- NOTE | 2022-05-22 14:01 | PM.PNCARD ---
Subjective Subjective Date of Service: 05/22/22 Interval history: Seen examined at bedside. She is saying she is feeling okay. Of the last few weeks she has been experiencing shortness of breath and chest pressure with activity. Mildly abnormal troponin levels. No wall motion abnormality on echocardiogram. Blood pressure was significantly elevated but improving with medications at this stage. Physical Exam Vital Signs: Last Vital Signs Temp 97.9 F 05/22/22 11:02 Pulse 62 05/22/22 11:02 Resp 18 05/22/22 11:02 BP 115/76 05/22/22 11:02 Pulse Ox 96 05/22/22 11:02 O2 Del Method 05/22/22 11:02 BMI result Body Mass Index 25.0 GENERAL APPEARANCE: in no acute distress, pleasant. NECK: no carotid bruit, no jugular venous distention. SKIN: no suspicious lesions, warm and dry. HEART: no murmurs, regular rate and rhythm. LUNGS: clear to auscultation bilaterally. ABDOMEN: soft, nontender. EXTREMITIES: no edema. PERIPHERAL PULSES: equal. NEUROLOGIC: No gross deficits, AAO X 3 Objective Labs and Meds 05/20/22 00:11 05/21/22 07:04 Progress Note: A&P Assessment and plan (1) Coronary artery disease: Status: Acute (2) HTN (hypertension): Status: Acute (3) Chest pain: Status: Acute Plan 51-year-old female with background history of coronary artery disease with previous LAD PCI in 2013 with bare metal stent who is presenting with shortness of breath and chest discomfort ongoing for few weeks. She was noticed to be significantly hypertensive and her medications have been adjusted. She is very mildly abnormal troponin levels and echocardiography has shown no regional wall motion abnormalities. Difficult to say whether chest discomfort was due to elevated blood pressures versus true underlying progression of coronary disease or lung disease as she has been a heavy smoker. I will arrange stress Mibi for her. If that is abnormal then we will proceed with diagnostic angiography. Smoking cessation and alcohol abstinence. Thank you for allowing me to participate in the care of your patient. Please feel free to contact me if you have any questions. Time Spent With Patient Time: Total time managing care of this patient today ____ minutes. Progress Note: Quality Stroke Does the patient have a stroke diagnosis?: No Procedures Date of Service Date of Service: 05/22/22
[2022-05-22] MEDS: hydrOXYzine HCL 25 MG TABLET PO (16:45)
[2022-05-22] MEDS: ondansetron HCL 4 MG/2 ML VIAL IVPUSH (16:45)
--- NOTE | 2022-05-22 17:01 | P.PNIM_ITS ---
Subjective Subjective Date of Service: 05/22/22 Interval History: htn uncontrolled, elevated troponin, chest tightness, alcohol use. Review of Systems feels anxious Chest tightness seems to be resolved, denies any shortness of breath or abd ominal pain or nausea vomitin Physical Exam Vital Signs: Vital Signs: Last Vital Signs Temp 98.2 F 05/22/22 15:17 Pulse 63 05/22/22 15:17 Resp 18 05/22/22 15:17 BP 180/91 H 05/22/22 15:17 Pulse Ox 96 05/22/22 15:17 O2 Del Method 05/22/22 15:17 BMI result Body Mass Index 25.0 ?Appearance: Alert.? Oriented X3.? not in distress.?. cvs: rrr, [id number]. res: clear to auscultation ,no rhonchii or wheezing abd: no rebound or guarding ,nt, bs present. ext pulses present , no cyanosis . neuro: axo3 , nonfocal. Objective Data Active Medications Amlodipine Besylate (Amlodipine Besylate 10 Mg Tablet) 10 mg PO DAILY [facility]; Protocol Last Admin: 05/22/22 08:51 Dose: 10 mg Documented By: VALDO Aspirin (Aspirin Enteric Coated 81 Mg Tablet.) 81 mg PO DAILY [facility] Last Admin: 05/22/22 08:53 Dose: 81 mg Documented By: VALDO Atorvastatin Calcium (Atorvastatin Calcium 40 Mg Tablet) 40 mg PO BEDTIME [facility] Last Admin: 05/21/22 21:09 Dose: 40 mg Documented By: ESTHER Carvedilol (Carvedilol 12.5 Mg Tablet) 12.5 mg PO BID [facility]; Protocol Last Admin: 05/22/22 08:51 Dose: 12.5 mg Documented By: VALDO Famotidine (Famotidine 20 Mg Tablet) 20 mg PO BID [facility] Last Admin: 05/22/22 08:51 Dose: 20 mg Documented By: VALDO Folic Acid (Folic Acid 1 Mg Tablet) 1 mg PO DAILY [facility] Last Admin: 05/22/22 08:52 Dose: 1 mg Documented By: VALDO Hydrochlorothiazide (Hydrochlorothiazide 12.5 Mg Tablet) 12.5 mg PO DAILY [facility]; Protocol Last Admin: 05/22/22 08:52 Dose: 12.5 mg Documented By: VALDO Hydroxyzine HCl (Hydroxyzine Hcl 25 Mg Tablet) 25 mg PO Q8H PRN PRN Reason: Anxiety Last Admin: 05/22/22 16:45 Dose: 25 mg Documented By: VALDO Labetalol HCl (Labetalol Hcl 100 Mg/20 Ml Vial) 10 mg IVPUSH Q4H PRN PRN Reason: BP>140/90 Lisinopril (Lisinopril 40 Mg Tablet) 40 mg PO DAILY [facility]; Protocol Last Admin: 05/22/22 08:52 Dose: 40 mg Documented By: VALDO Melatonin (Melatonin 3 Mg Tablet) 3 mg PO BEDTIME [facility] Last Admin: 05/21/22 21:09 Dose: 3 mg Documented By: ESTHER Multivitamins/Vitamin C (Multivitamin Tablet) 1 tab PO DAILY [facility] Last Admin: 05/22/22 08:52 Dose: 1 tab Documented By: VALDO Ondansetron HCl (Ondansetron Hcl 4 Mg/2 Ml Vial) 4 mg IVPUSH Q6H PRN PRN Reason: nause a Last Admin: 05/22/22 16:45 Dose: 4 mg Documented By: VALDO Pharmacy Consult (Consult Rx Etoh Phenob Im/Po) 1 each MISCELLANE ONCE PRN; Protocol PRN Reason: Consult order Phenobarbital (Phenobarbital 15 Mg Tablet) 15 mg PO BID [facility] Stop: 05/24/22 09:01 Phenobarbital (Phenobarbital 15 Mg Tablet) 15 mg PO DAILY [facility] Stop: 05/26/22 09:01 Quetiapine Fumarate (Quetiapine Fumarate 50 Mg Tablet) 50 mg PO BEDTIME [facility] Last Admin: 05/21/22 21:09 Dose: 50 mg Documented By: ESTHER Sodium Chloride (0.9 % Sodium Chloride Flush 3 Ml Syringe) 3 ml IVFLUSH QSHIFT [facility] Last Admin: 05/22/22 16:51 Dose: 3 ml Documented By: VALDO Thiamine HCl (Thiamine Hcl 100 Mg Tablet) 100 mg PO DAILY [facility] Last Admin: 05/22/22 08:52 Dose: 100 mg Documented By: VALDO Labs 05/20/22 00:11 05/21/22 07:04 Assessment and Plan (1) NSTEMI (non-ST elevated myocardial infarction): Status: Acute (2) HTN (hypertension): Status: Acute (3) Alcohol use disorder: Status: Acute Plan 51-year-old female with a past medical history of hypertension, hyperlipidemia, CAD status post PCI, cerebral aneurysm-times per, history of intracranial bleed status post craniotomy; alcohol use disorder; anxiety, depression presented to the hospital today with a chief complaint of chest pain.? Noted to be in hyperte nsive urgency.? Admitted for further management.? chest pain /elevated troponins :nstemi likely demand related due to uncontrolled htn. continue lisinopril, metoprolol changed to Coreg for better blood pressure control,aspirin ,bb, amlodipine, continue atorvastatin.? echo today cardiology eval noted-may need stress test depending on echo. Hypertensive uncontrolled: Patient denies any headaches. Continue home lisinopril,adjusted coreg, amlodipine.? IV labetalol p.r.n..? Goal blood pressure less than 140/90.? Gradually improving. Abnormal CT head:? Noted to have focal hypodensity/small vessel ischemic disease.? Exam was nonfocal.? Neurology consult-appreciated -likely new ct finding due to Hypertensive small vessel disease. ?no specific intervention is required.? Control of blood pressure is recommended.? Alcohol counseling. acute Anion gap metabolic acidosis:? No unclear etiology.? improving Lactate levels normal ,? Initially presumed to be secondary to alcoholic ketosis.? Gentle IV fluids. Alcohol use disorder: monitana levine ,mild withdrawal. ? Patient was started on phenobarb protocol in the ER.? Patient denies excessive use of alcohol.? Thiamine folate and multivitamins History of CAD: Continue home aspirin, statin, beta-kelsea History of depression: Continue home escitalopram GI prophylaxis:? Pepcid DVT prophylaxis:? [facility] devices. inpatient need:chest pain,uncontrolled htn -need blood pressure monitering and workup for chest pain pending Time Spent With Patient Time: Total time managing care of this patient today ____ minutes. Quality Stroke Does the patient have a stroke diagnosis?: No VTE Prior VTE?: No VTE Risk Level:: Medical - moderate - high VTE Device Contraindication: Treatment Not Indicated VTE Drug Contraindication: N/A - Med Ordered
[2022-05-22] MEDS: Labetalol HCL 100 MG/20 ML VIAL 10 MG IVPUSH (18:09)
[2022-05-22] MEDS: Metoclopramide HCl 10 MG/2 ML VIAL 5 MG IVPUSH (18:41)
[2022-05-22] MEDS: carvediloL 6.25 MG TABLET 18.75 MG PO (20:47)
[2022-05-22] MEDS: Atorvastatin Calcium 40 MG TABLET PO (20:48)
[2022-05-22] MEDS: QUEtiapine Fumarate 50 MG TABLET PO (20:48)
[2022-05-22] MEDS: Melatonin 3 MG TABLET PO (20:48)
[2022-05-22] MEDS: PHENobarbitaL 15 MG TABLET PO (20:48)
--- NOTE | 2022-05-23 | ECG_ITS ---
Test Reason : cp Blood Pressure : / mmHG Vent. Rate : 069 BPM Atrial Rate : 069 BPM P-R Int : 144 ms QRS Dur : 070 ms QT Int : 408 ms P-R-T Axes : 030 021 053 degrees QTc Int : 437 ms Normal sinus rhythm Normal ECG When compared with ECG of 19-MAY-2022 23:27, No significant change was found Referred By: Chaim Savage Electronically Signed By:Chaim Savage
--- NOTE | 2022-05-23 | CA_ITS ---
Acquisition Time: 2022-05-23 08:46:38 Total Exercise Time: 00:01:02 Test Indications: Dyspnea CP Medications: SEE EMAR Protocol: RACHEL Max HR: 100 BPM 59% of Pred: 169 BPM Max BP: 134/088 mmHG Max Work Load: 2.8 METS Exercise stress test with exercise 1 min 2 sec of Rachel protocol with moderate SOB and request to stop. Pt assisted to sitting position and testing changed to pharmacologic stress test once breathing normalized. Pharmacological test with Lexiscan injection while sitting and kicking her legs with mild SOB no chest discomfort, without arrythmias, With normotesive response to injection with non-diagnostic EKG for ischemia. In recovery treated with Aminophylline 75mg IVP to reverse Lexiscan. Nuclear images pending. Test reviewed with Dr. Savage. Referred By: Janie Ye Overread By: JANIE YE
[2022-05-23] MEDS: 0.9 % Sodium Chloride Flush 3 ML SYRINGE IVFLUSH ×2 (02:48→08:12)
[2022-05-23 03:31] VITALS: BP 106/61; PULSE 61; RESP 15; TEMP 36.7; O2SAT 98
[2022-05-23 08:00] VITALS: BP 154/70; PULSE 67; RESP 18; TEMP 36.4; O2SAT 96
[2022-05-23] MEDS: Multivitamin TABLET 1 TAB PO (08:11)
[2022-05-23] MEDS: Thiamine HCL 100 MG TABLET PO (08:11)
[2022-05-23] MEDS: Folic Acid 1 MG TABLET PO (08:11)
[2022-05-23] MEDS: Aspirin Enteric Coated 81 MG TABLET.DR PO (08:11)
[2022-05-23] MEDS: hydrOXYzine HCL 25 MG TABLET PO (08:11)
[2022-05-23] MEDS: lisinopriL 40 MG TABLET PO (08:11)
[2022-05-23] MEDS: hydroCHLOROthiazide 12.5 MG TABLET PO (08:11)
[2022-05-23] MEDS: amLODIPine Besylate 10 MG TABLET PO (08:11)
[2022-05-23] MEDS: Famotidine 20 MG TABLET PO (08:11)
[2022-05-23] MEDS: PHENobarbitaL 15 MG TABLET PO (08:11)
--- NOTE | 2022-05-23 10:21 | PM.PNCARD ---
Subjective Subjective Date of Service: 05/23/22 <MADYSON Galarza - Last Filed: 05/23/22 10:35> 05/23/22 <Chaim Savage MD - Last Filed: 05/23/22 16:39> Principal diagnosis: Chest discomfort, HTN Urgency <MADYSON Galarza Last Filed: 05/23/22 10:35> Interval history: Seen at 0915 in stress lab. Today she reports that she is feeling well. Denies chest discomfort, sob, palpitations, dizziness. BP normal range at present time. Hoping to be able to go home today. <MADYSON Galarza - Last Filed: 05/23/22 10:35> Review of Systems Review of Systems as above <MADYSON Galarza Last Filed: 05/23/22 10:35> Yes all other systems are reviewed and are negative <MADYSON Galarza - Last Filed: 05/23/22 10:35> Physical Exam Vital Signs: Last Vital Signs Temp 97.6 F 05/23/22 08:00 Pulse 67 05/23/22 08:00 Resp 18 05/23/22 08:00 BP 154/70 H 05/23/22 08:00 Pulse Ox 96 05/23/22 08:00 O2 Del Method 05/23/22 08:00 BMI result Body Mass Index 25.0 <MADYSON Galarza - Last Filed: 05/23/22 10:35> Const General: cooperative, healthy appearing, comfortable and no acute distress <MADYSON Galarza Last Filed: 05/23/22 10:35> Orientation/consciousness: patient oriented x3 <MADYSON Galarza - Last Filed: 05/23/22 10:35> Neck Neck: Yes normal visual inspection <MADYSON Galarza Last Filed: 05/23/22 10:35> Resp Effort & Inspection: normal respiratory effort <MADYSON Galarza Last Filed: 05/23/22 10:35> Auscultation: clear to auscultation bilaterally, no rales, no rhonchi and no wheezes <MADYSON Galarza Last Filed: 05/23/22 10:35> Cardio Jugular venous distension: no JVD <JACKLYN GalarzaC - Last Filed: 05/23/22 10:35> Rate: regular rate <MADYSON Galarza - Last Filed: 05/23/22 10:35> Rhythm: regular rhythm <MADYSON Galarza - Last Filed: 05/23/22 10:35> Heart sounds: S1 normal heart sound present, S2 normal heart sound present, no gallops, no murmurs and no rubs <JACKLYN GalarzaC - Last Filed: 05/23/22 10:35> GI Inspection: Yes normal to inspection <MADYSON Galarza - Last Filed: 05/23/22 10:35> Neuro General: patient oriented x3 <MADYSON Galarza - Last Filed: 05/23/22 10:35> Extrem General: Yes normal to inspection and No no pedal edema <MADYSON Galarza - Last Filed: 05/23/22 10:35> Psych Appearance: grossly normal <MADYSON Galarza - Last Filed: 05/23/22 10:35> Mental Status: mental status grossly normal <MADYSON Galarza - Last Filed: 05/23/22 10:35> Speech and movement: Normal speech and movement present <MADYSON Galarza - Last Filed: 05/23/22 10:35> Objective Labs and Meds Result diagrams: 05/20/22 00:11 05/21/22 07:04 <MADYSON Galarza - Last Filed: 05/23/22 10:35> Progress Note: A&P Assessment and plan (1) Chest pain: Status: Acute <MADYSON Galarza - Last Filed: 05/23/22 10:35> Assessment and Plan: Reports of chest discomfort and sob with activity. Inpt eval shows Troponins mildly elevated. EKG initially ST no acute ST/ T wave abn, rate 102. Echo shows EF 60-65%, mild decreased in RVSF, no regional WMA, severe septal assymetric hypertrophy without mention of of outflow obstuction. BP very elevated on admit and Metoprolol was changed to Carvedilol. BPs have been variable this admit, currently in normal range. Has known hx of HTN, alcohol use, CAD with LAD stent placed 2013. Other cardiac risks include HLD, smoking. Her chest discomfort and mildly elevated troponin could be related to HTN urgency/ uncontrolled BPs. With her know hx of CAD, she is undergoing further evaluation with nuclear stress test, which will be completed today. If stress test is normal, she can be discharged from a cardiology perspective. If stress test is abnormal, then further tx plan to be determined. May need cardiac cath. Continue current meds including aspirin, atorvastatin, Amlodipine, Lisinopril and Carvedilol. <MADYSON Galarza - Last Filed: 05/23/22 10:35> (2) Coronary artery disease: Status: Acute <MADYSON Galarza Last Filed: 05/23/22 10:35> (3) H/O heart artery stent: Status: Acute <MADYSON Galarza - Last Filed: 05/23/22 10:35> (4) HTN (hypertension): Status: Acute <MADYSON Galarza Last Filed: 05/23/22 10:35> Assessment and Plan: As above. Currently normal range. No med changes made <MADYSON Galarza - Last Filed: 05/23/22 10:35> Assessment and Plan: Seen and examined at bedside. Nuclear stress test results reviewed. Patient presented with significantly elevated blood pressures and was experiencing shortness of breath and chest discomfort. She cannot exercise on treadmill due to leg cramping and pain. She did not have significant biomarker rise no wall motion abnormality on the echocardiogram. EKG is normal. I think she can be discharged home and can have a diagnostic angiogram as outpatient which we will arrange. Thank you for allowing me to participate in the care of your patient. Please feel free to contact me if you have any questions. <Chaim Savage MD - Last Filed: 05/23/22 16:39> Time Spent With Patient Time: Total time managing care of this patient today 22____ minutes. <MADYSON Galarza - Last Filed: 05/23/22 10:35> Progress Note: Quality Stroke Does the patient have a stroke diagnosis?: No <MADYSON Galarza - Last Filed: 05/23/22 10:35> Procedures Date of Service Date of Service: 05/23/22 <MADYSON Galarza - Last Filed: 05/23/22 10:35>
--- NOTE | 2022-05-23 11:18 | MHC.RECOVRN ---
Met with pt in 475 after consult placed to Addiction Medicine for alcohol use. Pt sitting in bed, awake, alert, easily engages in conversation. Pt reports current alcohol use, 5 nips daily, beginning at 10AM. Pt reports she began reducing the amount approx 6 months ago. At that time, pt reports drinking 10+ nips. Pt reports alcohol use began at age 30 after divorce. Pt was not allowed to see her children so she began drinking. Pt also reports using alcohol to help cope with anxiety. Pt reports alcohol has interfered with life a little. Pt denies hx ATS admissions or inpatient PATIENCE tx. Pt reports going to [facility] in [place] over a year ago to initiate SOLO. Pt unable to recall which medication was initiated, however, pt states 'It didn't make me not want to drink, it made me sick. Pt has attempted to reduce/abstain a couple times in the past, unsuccessfully. Pt identifies sister as supportive, sister does not consume alcohol. Pt reports sister has been concerned in the past about patient's alcohol use but is not currently concerned due to pt hiding it. Pt reports using marijuana, denies other substances. Pts goal is abstinence. Discussed recovery resources and supports, pt interested in [facility] [place] as well as reattempting SOLO. Pt provided with written information as well as t/w contact information if needed. Appointment made at the [facility] for 05/26/22 at 1:15PM. Discussed with Carissa Martins APRN.
[2022-05-23 11:52] VITALS: BP 149/69; PULSE 69; RESP 18; TEMP 36.8
--- NOTE | 2022-05-23 13:47 | PM.DS ---
DS: Providers Provider Date of Service: 05/23/22 Date of admission: 05/20/22 05:29 Primary care physician: Donavon Reagan Consults: 05/20/22 05:49 Consult to Cardiology Routine Consulting Provider: [facility] Cardiovascular Services Reason for consultation: chest pain 05/20/22 05:50 Consult to Neurology Routine Consulting Provider: [facility] Reason for consultation: abnormnal CT head 05/22/22 09:53 Addiction Medicine Routine Consulting Provider: [facility] Reason for consultation: alcohol use Has provider been notified: No DS: Diagnosis Discharge Diagnosis (1) Chest pain: Status: Acute (2) Coronary artery disease: Status: Acute (3) H/O heart artery stent: Status: Acute (4) HTN (hypertension): Status: Acute DS: Summary Hospital Course Hospital Course: Chief Complaint: Alcohol use disorder 51-year-old female with a past medical history of hypertension, hyperlipidemia, CAD status post PCI, cerebral aneurysm-times per, history of intracranial bleed status post craniotomy; alcohol use disorder; anxiety, depression presented to the hospital today with a chief complaint of chest pain.? Patient mentioned that she had chest pain prior to coming to the hospital, located in the left side of the chest, radiating to the left arm; also complains of abdominal discomfort associated nausea .? Mentions that she had units of alcohol prior to coming to the hospital.? Denies using alcohol on a daily basis.? Patient denies any chest pain at the time of my interview.? Denies any shortness of breath, lightheadedness or dizziness.? Denies any fever chills cough or sputum production.? Denies any urinary symptoms.? Review of all other systems is negative except mentioned above ER course: Per ER team, patient on presentation noted to have elevated blood pressure of 23/123; CT head showed small hypodensity/microvascular ischemic changes; patient was given IV labetalol and diarrhea given concerns for alcohol withdrawal received IV Ativan with no significant improvement.? Follow patient received 2 more doses of IV labetalol, started on phenobarb protocol; also later on given amlodipine; subsequently her blood pressure slowly gradually started to come down initial to 166 dollar conformed by the latest blood pressure being 138 over 112; exam was nonfocal.? Admitted to the hospital for further management. Hospital course: She presented with chest discomfort and sob with activity. Her Troponins was mildly elevated. EKG initially no acute ST/ T wave abn, . Echo shows EF 60-65%, mild decreased in RVSF, no regional WMA, severe septal assymetric hypertrophy without mention of of outflow obstuction. Initial BP was 210/121 and treated with IV meds and Metoprolol has been changed to to Carvedilol with overall improved blood pressures, currently in normal range. Has known hx of HTN, alcohol use, CAD with LAD stent placed 2013. Other cardiac risks include HLD, smoking.? Her chest discomfort and mildly elevated troponin could be related to HTN urgency/ uncontrolled BPs. With her know hx of CAD, she is underwent stress test which showed A small reversible perfusion abnormality is present involving the apical anterior wall and portions of the adjacent wall segments as described above. No other perfusion abnormalities are present. Left ventricular wall motion and ejection fraction are normal on both the stress and rest acquisitions. She will be discharged with current meds of aspirin, atorvastatin, Amlodipine, Lisinopril and Carvedilol and follow up with cardiology on outpatient basis Time Spent with Patient Time attestation: Total time managing care of this patient today ____ minutes. Discharge coordination time: Greater than 30 minutes Quality: Safe Use of Opioids Does Pt have an Active Cancer Diagnosis on the Problem List?: No Quality: Stroke Does the patient have a stroke diagnosis?: No Physical Exam Vital Signs: Vital Signs: Last Vital Signs Temp 98.2 F 05/23/22 11:52 Pulse 69 05/23/22 11:52 Resp 18 05/23/22 11:52 BP 149/69 H 05/23/22 11:52 Pulse Ox 96 05/23/22 08:00 O2 Del Method 05/23/22 08:00 BMI result Body Mass Index 25.0 Const: Other: General: AO X 3, no acute distress Resp: CTA bilateral CVS: S1,S2,RRR GI: +BS, NT, no distention Skin: No rash Neuro: motor grossly intact Psych: appropriate affect DS: Data Data Completed and Pending Completed studies during hospitalization [Text1]: Procedures Detoxification Services for Substance Abuse Treatment (02/25/20) Discharge Plan Discharge Anticipated Discharge Date/Time: 05/23/22 13:52 Patient Disposition: Home, Self-Care Discharge Diagnosis: Chest pain, elevated troponin and elevated blood pressure Referrals: Donavon Reagan [Other] - 1 Week Discharge Medications: New carvedilol 6.25 mg Tablet 18.75 mg PO BID Qty: 180 0RF Protocol: Hold for SBP/HR < HOLD for SBP < : 90 HOLD for HR < : 60 Rx Instructions: or any combination for 18.75 mg Continued lisinopril 40 mg tablet 1 tab PO DAILY atorvastatin 40 mg tablet 2 tab PO DAILY aspirin 81 mg tablet,delayed release (DR/EC) 1 tab PO DAILY amlodipine [Norvasc] 10 mg Tablet 10 mg PO DAILY Rx Instructions: CALLED PHARMACY - LAST TIME THEY PICKED UP WAS 09/05/21; PT CLAIMS TO STILL BE ON quetiapine 50 mg tablet 1 tab PO BEDTIME acetaminophen 325 mg Tablet 650 mg PO Q6H PRN (Reason: Pain) melatonin 3 mg tablet 1 tab PO BEDTIME escitalopram oxalate 20 mg tablet 1 tab PO DAILY Discontinued metoprolol succinate 50 mg tablet extended release 24 hr 1 tab PO DAILY ibuprofen 200 mg Tablet 400 mg PO Q8H PRN (Reason: Pain) Diet: Advance to usual diet Activity on Discharge: As tolerated Stand Alone Forms: Patient Portal Discharge page Care Plan Goals: full recovery from chest pain, uncontrolled blood pressure Health Concerns: Uncontrolled blood pressure, chest pain Plan of Treatment: Take all your medications as directed and follow up with your Doctor in a wee Follow up with digital press operator Dr. Savage in a week Assessment: as above
[2022-05-23 16:00] VITALS: BP 117/86; PULSE 86; RESP 18; TEMP 36.6; O2SAT 99
== END 2022-05-23 18:16 | disposition home or self-care (01) | DRG 305 ==
LOC: HO.ED 05-20 04:04 → HO.EDOVER 05-20 05:48 → HO.IMC 05-20 07:13
PROVIDERS: Internal Medicine; Admitting Provider Hospitalist; Emergency Provider Emergency Medicine; Visit Provider Internal Medicine
DX: I16.1 Hypertensive emergency (principal); E87.20 Acidosis, unspecified; F10.139 Alcohol abuse with withdrawal, unspecified; I24.8 Other forms of acute ischemic heart disease; F17.210 Nicotine dependence, cigarettes, uncomplicated; I25.10 Atherosclerotic heart disease of native coronary artery without angina pectoris; E78.5 Hyperlipidemia, unspecified; I10 Essential (primary) hypertension; F32.A Depression, unspecified; Y90.3 Blood alcohol level of 60-79 mg/100 ml; Z20.822 Contact with and (suspected) exposure to COVID-19; Z71.6 Tobacco abuse counseling; Z95.5 Presence of coronary angioplasty implant and graft; Z91.041 Radiographic dye allergy status; Z79.82 Long term (current) use of aspirin; Z79.899 Other long term (current) drug therapy
CPT/HCPCS: 36415; 70450; 71045; 78452; 80048; 80053; 80076; 82077; 83605; 83690; 84484; 85025; 87635; 93005; 93017; 93306; 99285; A9500; J0280; J2060; J2405; J2560; J2765; J2785; Q9957

== ENCOUNTER → 2022-08-01 12:46 | Outpatient (BNVA) | payer OTHER, SELFPAY | PROVIDERS: Visit Provider Internal Medicine | DX: I25.10 Atherosclerotic heart disease of native coronary artery without angina pectoris (principal); I10 Essential (primary) hypertension; F10.90 Alcohol use, unspecified, uncomplicated; F17.210 Nicotine dependence, cigarettes, uncomplicated; Z95.1 Presence of aortocoronary bypass graft | CPT/HCPCS: 99212 ==

== ENCOUNTER 2022-08-09 06:27 | Emergency (ER) | payer OTHER, SELFPAY ==
[2022-08-09] VITALS (8 sets, daily range): BP systolic 139–194; BP diastolic 79–122; PULSE 64–80; RESP 14–18; TEMP 36.3–36.6; O2SAT 93–99; BMI 21.6
--- NOTE | 2022-08-09 | ECG_ITS ---
Test Reason : CHES PAIN Blood Pressure : / mmHG Vent. Rate : 068 BPM Atrial Rate : 068 BPM P-R Int : 144 ms QRS Dur : 072 ms QT Int : 392 ms P-R-T Axes : 051 010 074 degrees QTc Int : 416 ms Normal sinus rhythm Possible Left atrial enlargement Borderline ECG When compared with ECG of 23-MAY-2022 15:46, No significant change was found Referred By: Generic ED Physician Electronically Signed By:KASSANDRA SUN MD
--- NOTE | ~2022-08-09 | CT_ITS ---
EXAMINATION: CT ANGIOGRAM CHEST CLINICAL INFORMATION: Neck pain, hypertension COMPARISON: None available. TECHNIQUE: Multiple axial images were obtained through the chest after the administration of 70 mL of Omnipaque 350 intravenous contrast. Extensive vascular post-processing including two-dimensional and three-dimensional reformatted images were created and reviewed on an independent workstation. This CT examination was performed using dose optimization techniques as appropriate, variously including the following: *Automated exposure control *Adjustment of mA and/or kV according to patient size (this includes techniques or standardized protocols for targeted exams where dose is matched to indication/reason for exam; i.e. extremities or head) *Use of iterative reconstruction technique DLP: 172 mGy-cm FINDINGS: Mediastinum: The pulmonary artery and is glands are well opacified without any internal luminal filling defect or narrowing. The thoracic aorta is of normal caliber. No abnormal size mediastinal or hilar lymph nodes seen. The central trachea and the bronchi widely patent. Heart size and the great vessels are normal caliber. There is no pericardial effusion. LUNGS: The lungs are well-expanded and clear of acute process. No pulmonary nodule, mass or consolidation seen. Pleura: There is no pleural effusion, thickening or calcification. Axilla: There are small shotty bilateral axillary lymph nodes seen. The chest wall is unremarkable. Upper abdomen: Visualized liver, spleen, pancreas and bilateral adrenal glands are unremarkable. Osseous structures: No aggressive lytic or sclerotic process seen. There are median sternotomy sutures and mediastinal sanjana from previous CABG. CT/CT angio chest aorta IMPRESSION: No evidence of PE. No evidence of aortic dissection. Fleischner guidelines were followed.
--- NOTE | ~2022-08-09 | NM_ITS ---
PULMONARY PERFUSION ONLY STUDY: CLINICAL INDICATION: Left upper back pain radiating to arm. Recent CABG. PROCEDURE: Following the intravenous administration of 4.0 millicuries technetium 99m MAA, images of the chest were obtained in multiple projections using a gamma scintiphotographic camera. COMPARISON: Chest radiograph done on the same day. FINDINGS: Chest radiograph shows bilateral clear lung tucker. PERFUSION IMAGES: No segmental perfusion defects or other perfusion abnormalities are noted. NM/NM pul perfusion IMPRESSION: Based on perfusion only modified PIOPED 2 criteria, pulmonary thromboembolism is considered absent.
--- NOTE | ~2022-08-09 | XR_ITS ---
EXAMINATION: XR CHEST CLINICAL INFORMATION: Left back pain radiating to arm COMPARISON: May 20, 2022 TECHNIQUE: 2 views of the chest were obtained. FINDINGS: No significant abnormality is noted involving the heart, lungs, mediastinum, bony thorax or soft tissues. Status post median sternotomy. XR/XR chest 2V IMPRESSION: No acute disease.
--- NOTE | 2022-08-09 06:41 | ED.GENADULT ---
HPI - General Adult General Chief complaint: Back Pain/Injury Stated complaint: midback, left shoulder pain Time Seen by Provider: 08/09/22 06:36 Source: patient Mode of arrival: ambulatory Limitations: no limitations History of Present Illness HPI narrative: Patient is a 51-year-old female with history of HTN, CAD, and aorto-CABG in June of 2022 presenting with complaint of left upper back pain radiating to her left arm since this morning as well as nausea and one episode of nonbilious, nonbloody vomiting. She rates the pain at 8/10 currently. She reports that the pain is constant and denies any exacerbating or relieving factors. She also complains of mild shortness of breath. She denies any abdominal pain, diarrhea, or constipation. Denies recent fevers. She states that she felt fine when she went to bed yesterday. She reports that she took all her medications prior to arrival this morning. MD complaint: left upper back and left arm pain Onset (ago): hour(s) Location: back Radiation: extremity Severity scale (1-10): 8 Quality: stabbing Pain Consistency: constant Relieving factors: none Exacerbating factors: none Associated symptoms: nausea/vomiting and shortness of breath Treatments prior to arrival: none Related Data Home Medications Medication Instructions Recorded Confirmed acetaminophen 325 mg tablet 650 mg PO Q6H PRN Pain 05/20/22 08/01/22 carvedilol 6.25 mg tablet 18.75 mg PO BID 08/01/22 08/01/22 escitalopram oxalate 20 mg tablet 20 mg PO DAILY 08/01/22 08/01/22 melatonin 3 mg tablet 3 mg PO BEDTIME 08/01/22 08/01/22 nicotine (polacrilex) 4 mg buccal 4 mg PO Q2H 08/01/22 08/01/22 lozenge quetiapine 50 mg tablet 50 mg PO BEDTIME 08/01/22 08/01/22 Previous Rx's Medication Instructions Recorded amlodipine 10 mg tablet (Norvasc) 10 mg PO DAILY #90 tabs 08/02/22 aspirin 81 mg tablet,delayed 81 mg PO DAILY #90 tabs 08/02/22 release atorvastatin 40 mg tablet 80 mg PO DAILY 90 days #180 tabs 08/02/22 clopidogrel 75 mg tablet 75 mg PO DAILY #90 tabs 08/02/22 metoprolol succinate 25 mg 25 mg PO DAILY 90 days #90 tabs 08/02/22 tablet,extended release 24 hr metoprolol succinate 50 mg 50 mg PO DAILY 90 days #90 tabs 08/02/22 tablet,extended release 24 hr metoclopramide HCl 10 mg tablet 10 mg PO Q6H PRN nausea and 08/09/22 vomiting #7 tabs Allergies Allergy/AdvReac Type Severity Reaction Status Date / Time Iodinated Contrast Media Allergy Mild RASH Verified 08/01/22 12:52 [CONTRAST, IV] DECONGESTIONS Allergy Unknown INCREASED Uncoded 08/01/22 12:52 HEART RATE Review of Systems Review of Systems: As per HPI Yes all other systems are reviewed and are negative Constitutional: Constitutional: Reports no additional constitutional complaints Eyes: Eyes: Reports no additional eye complaints ENT: Reports system reviewed and no additional complaints, except as documented Cardiovascular: Cardiovascular: Reports as per HPI and Reports no additional cardiovascular complaints Respiratory: Respiratory: Reports as per HPI and Reports no additional respiratory complaints Gastrointestinal: Gastrointestinal: Reports as per HPI and Reports no additional gastrointestinal complaints Genitourinary: Genitourinary: Reports no additional female genitourinary complaints Musculoskeletal: Musculoskeletal: Reports no additional musculoskeletal complaints and Reports as per HPI Integumentary/Breasts: Skin/Breast: Reports system reviewed and no additional complaints, except as docu Neurologic: Reports system reviewed and no additional complaints, except as documented Psychiatric: Psychiatric: Reports no additional psychiatric complaints Endocrine: Endocrine: Reports no additional endocrine complaints Hematologic/Lymphatic: Hematologic/Lymphatic: Reports no additional hematologic/lymphatic complaints Allergic/Immunologic: Allergic/Immunologic: Reports no additional allergic/immunologic complaints [facility] Past Medical History Medical History (Updated 08/09/22 @ 15:13 by Suha Walker NP) Cerebral aneurysm Cerebral microvascular disease Coronary artery disease HTN (hypertension) HTN (hypertension) Myocardial infarct Surgical History (Updated 08/01/22 @ 13:02 by Samuel Cheema MD) H/O craniotomy H/O heart artery stent Family History Family History Father CAD (coronary artery disease) Social History Social History Household Members: Significant Other Housing: Apartment Do you presently have visiting nurse or other home services: No Alcohol intake: current Alcohol intake frequency: does not drink Alcohol type: hard liquor Patient Tobacco Use Status: Current everyday Tobacco user Tobacco use type: Cigarette Cigarette Packs Per Day: 0.5 Cigarettes Per Day: 10.0 Years Smoked: 6 Smoked in Last 30 Days: Yes e-Cigarette/Vaping Use: Never Used Second Hand Smoke Exposure: Yes Use of substances other than those prescribed or required for medical reasons: No Substance Use Type: Marijuana Advance Directives: No Advance Directives Information Provided: No service: No Current occupational status: unemployed Physical Exam ED Vital Signs: Vital Signs - 24 hr 08/09/22 06:30 08/09/22 06:38 08/09/22 07:47 Temperature 97.3 F 97.8 F 97.8 F Pulse Rate 80 75 64 Respiratory Rate 18 16 16 Blood Pressure 194/121 H 166/100 H 185/95 H Pulse Oximetry 99 98 95 Oxygen Delivery Method Room Air Room Air Room Air 08/09/22 08:50 08/09/22 10:19 08/09/22 12:33 Temperature 97.7 F 97.7 F 97.7 F Pulse Rate 67 68 68 Respiratory Rate 14 18 18 Blood Pressure 190/94 H 174/79 H 139/122 H Pulse Oximetry 95 93 98 Oxygen Delivery Method Room Air Room Air Room Air 08/09/22 14:46 Temperature 97.7 F Pulse Rate 68 Respiratory Rate 14 Blood Pressure 188/89 H Pulse Oximetry 99 Oxygen Delivery Method Room Air BMI result Body Mass Index 21.6 Vital signs have been reviewed and appear to be correct. Blood pressure elevated. Heart rate normal. Respiratory rate normal. Temperature normal. Oxygen saturation normal. Const General: cooperative, healthy appearing and no acute distress Orientation/consciousness: oriented to person, oriented to place, oriented to time and patient oriented x3 Limitations: no limitations [facility] Head: Yes normocephalic and Yes atraumatic Ears: external ears normal General nose exam: Normal external nose present Face and sinus: Yes face symmetric Mouth: oropharynx normal and moist mucous membranes Throat: Yes uvula midline Eyes Pupils: Equal, round and reactive pupils present Neck Neck: Yes normal visual inspection and Yes supple Chest Other: Surgical incision well healed, no erythema or calor Chest palpation & inspection: normal inspection of the chest Resp Effort & Inspection: normal respiratory effort and able to speak in complete sentences Auscultation: clear to auscultation bilaterally Cardio Rate: regular rate Rhythm: regular rhythm Heart sounds: S1 normal heart sound present and S2 normal heart sound present GI Palpation (GI): Soft to palpation and nontender Auscultation: normoactive bowel sounds General: Yes no CVA tenderness Back/Spine/Pelvis Other: no increased pain with palpation Back: no CVA tenderness Back/spine/pelvis image: 1. Skin General skin exam: elasticity normal and turgor normal Neuro General: oriented to person, oriented to place, oriented to time, patient oriented x3, moves all extremities, no focal motor deficits and CN's II-XI intact bilaterally Cranial nerves: Yes Equal, round and reactive pupils present Cognition (Neuro): normal cognition Extrem General: Yes full ROM, Yes no pedal edema and Yes no calf tenderness Psych Mental Status: mental status grossly normal Affect: normal affect Thought process: Normal thought process present Course Reevaluation(s) Reevaluation #1: Labs unremarkable other than elevated D-dimer. VQ scan negative for PE. Normal CXR. Reports continued pain and nausea despite 2 doses of morphine and ondansetron. Remains hypertensive despite taking her medications at home this am. Kennedy text to Dr. Pablo for recommendations. 10:08 Dr. Pablo recommends CTA to rule out aortic dissection. Discussed case with Dr. Durbin. Will premedicate patient with solumedrol, benadryl and famotidine. 13:10 Patient complains of continued nausea and had another episode of vomiting. Will add LFTs and lipase. 14:03 No evidence of aortic dissection or PE on CTA. Per Dr. Pablo patient ok to go home with outpatient follow up. 15:07 Patient reports good relief of nausea after lorazepam and is able to tolerate allen talia. Patient stable for discharge home, prescribed metoclopramide as needed, instructed patient to follow up with her PCP, return precautions discussed at bedside. Time: 10:03 Medications Administered Discontinued Medications Generic Name Dose Route Start Last Admin Trade Name Freq PRN Reason Stop Dose Admin Diphenhydramine HCl 25 mg 08/09/22 10:08/09/22 11:41 Diphenhydramine Hcl 50 Mg/Ml Vial IVPUSH 08/09/22 10:23 25 mg ONCE ONE Administration Famotidine 20 mg 08/09/22 10:08/09/22 11:41 Famotidine/Pf 20 Mg/2 Ml Vial IVPUSH 08/09/22 10:23 20 mg ONCE ONE Administration Iohexol 100 ml 08/09/22 13:10 08/09/22 13:11 Iohexol 350 Mg/Ml 100 Ml Infus..Btl IV 08/09/22 13:11 70 ml ONCE ONE Administration Lorazepam 1 mg 08/09/22 14:24 08/09/22 14:48 Lorazepam 2 Mg/Ml Vial IVPUSH 08/09/22 14:25 1 mg ONCE ONE Administration Methylprednisolone Sodium Succinate 125 mg 08/09/22 10:22 08/09/22 11:41 Methylprednisolone Sod Succ 125 Mg/2 Ml Vial IVPUSH 08/09/22 10:23 125 mg ONCE ONE Administration Morphine Sulfate 4 mg 08/09/22 07:02 08/09/22 07:56 Morphine Sulfate 4 Mg/Ml Cartridge IVPUSH 08/09/22 07:03 4 mg ONCE ONE Administration Protocol Morphine Sulfate 4 mg 08/09/22 08:57 08/09/22 09:13 Morphine Sulfate 4 Mg/Ml Cartridge IVPUSH 08/09/22 08:58 4 mg ONCE ONE Administration Protocol Ondansetron HCl 4 mg 08/09/22 07:02 08/09/22 07:56 Ondansetron Hcl 4 Mg/2 Ml Vial IVPUSH 08/09/22 07:03 4 mg ONCE ONE Administration Ondansetron HCl 4 mg 08/09/22 09:08 08/09/22 09:12 Ondansetron Hcl 4 Mg/2 Ml Vial IVPUSH 08/09/22 09:09 4 mg ONCE ONE Administration Medical Decision Making Medical Decision Making MDM Narrative: Patient is a 51-year-old female with history of HTN, CAD, and aorto-CABG in June of 2022 presenting with complaint of left upper back pain radiating to her left arm since this morning as well as nausea and one episode of nonbilious, nonbloody vomiting. On exam patient is awake, A+Ox3, normal neurological exam without focal deficits, hypertensive but VS otherwise WNL, RRR, LS CTA throughout, ABD SNT, patient states she took her BP medications just prior to arrival, repeat BP slightly improved. Given patient's history concerned for ACS, PE, possible PNA, pneumothorax. Less likely AAA rupture, aortic dissection, esophageal rupture. Unlikely cardiac tamponade, endocarditis, pericarditis. Plan: EKG, labs including troponin, D-dimer, CXR, pain management, reassess Please refer to course for remaining clinical decision making. Differential Diagnosis Differential Diagnoses: The differential diagnosis associated with the presentation includes As above. Admission/Observation Consideration of admission/observation: Escalation of care including admission/observation considered Lab Data MDM Lab Attestation statement: I reviewed the patient's lab results. 08/09/22 06:57 08/09/22 06:57 Labs: Lab Results 08/09/22 08/09/22 08/09/22 Range/Units 06:57 06:57 06:57 WBC 9.0 (4.8-10.8) X10*3/uL RBC 4.71 (4.20-5.50) X10*6/uL Hgb 14.8 (12.0-16.0) g/dl Hct 45.9 (37.0-47.0) % MCV 97.5 (80.0-98.0) fL MCH 31.4 (27.0-33.0) pg MCHC 32.2 (31.0-35.0) g/dl RDW 13.2 (11.0-16.0) % Plt Count 255 (160-400) X10*3/uL MPV 10.6 (9.4-12.3) fL Immature Gran % (Auto) 0.3 (0.0-0.4) % Neut % (Auto) 67.7 (45-73) % Lymph % (Auto) 21.8 (20-40) % Fleming % (Auto) 6.1 (2-11) % Eos % (Auto) 3.8 (0-4) % Baso % (Auto) 0.3 (0-2) % Lymph # (Auto) 2.0 (1.2-4.9) X10*3/uL Fleming # (Auto) 0.6 (0.1-1.2) X10*3/uL Eos # (Auto) 0.3 (0.0-0.4) X10*3/uL Baso # (Auto) 0.0 (0.0-0.2) X10*3/uL Abs Immat Gran (auto) 0.03 (0.00-0.03) X10*3/uL Absolute Neuts (auto) 6.1 (2.0-8.3) x10*3/uL Absolute Nucleated RBC 0.000 (0.0-0.012) X10*3/uL Nucleated RBC % (auto) 0.0 (0.0-0.2) /100WBC PT (10.0-13.1) SEC INR (0.9-1.1) D-Dimer High Sensitivty NG/ML VBG pH (7.32-7.43) VBG pCO2 mmHg VBG pO2 mmHg VBG HCO3 (22-26) mmol/L VBG O2 Saturation % VBG Base Excess mmol/L Sodium 139 (135-145) mmol/L Potassium 4.2 (3.3-5.1) mmol/L Chloride 102 (96-108) mmol/L Carbon Dioxide 28 (22-29) mmol/L Anion Gap 13 (12-20) BUN 8 L (9-16) mg/dL Creatinine 0.79 (0.5-1.4) mg/dL Estim Creat Clear Calc 75.7 Estimated GFR > 60 Random Glucose 105 (60-115) mg/dL Calcium 10.2 D (8.4-10.2) mg/dL Total Bilirubin 0.6 (0.0-1.0) mg/dL Direct Bilirubin 0.2 (0.0-0.5) mg/dL AST 11 (5-31) U/L ALT 9 (0-31) U/L Alkaline Phosphatase 109 (39-117) U/L Troponin I High Sens < 2.7 D (<3.5-17.0) ng/L B-Natriuretic Peptide (<100) pg/mL Total Protein 7.4 (6.5-8.0) g/dL Albumin 4.0 (3.5-5.0) g/dL Lipase 10 (8-78) U/L Urine Color Urine Appearance Urine pH (5.0-9.0) Ur Specific [place] (1.005-1.025) Urine Protein (Neg-Trace) mg/dL Urine Glucose (UA) (Negative) mg/dL Urine Ketones (Negative) mg/dL Urine Blood (Negative) Urine Nitrite (Negative) Ur Leukocyte Esterase (Negative) 05/31/23 05/31/23 05/31/23 Range/Units 06:57 06:57 06:57 WBC (4.8-10.8) X10*3/uL RBC (4.20-5.50) X10*6/uL Hgb (12.0-16.0) g/dl Hct (37.0-47.0) % MCV (80.0-98.0) fL MCH (27.0-33.0) pg MCHC (31.0-35.0) g/dl RDW (11.0-16.0) % Plt Count (160-400) X10*3/uL MPV (9.4-12.3) fL Immature Gran % (Auto) (0.0-0.4) % Neut % (Auto) (45-73) % Lymph % (Auto) (20-40) % Fleming % (Auto) (2-11) % Eos % (Auto) (0-4) % Baso % (Auto) (0-2) % Lymph # (Auto) (1.2-4.9) X10*3/uL Fleming # (Auto) (0.1-1.2) X10*3/uL Eos # (Auto) (0.0-0.4) X10*3/uL Baso # (Auto) (0.0-0.2) X10*3/uL Abs Immat Gran (auto) (0.00-0.03) X10*3/uL Absolute Neuts (auto) (2.0-8.3) x10*3/uL Absolute Nucleated RBC (0.0-0.012) X10*3/uL Nucleated RBC % (auto) (0.0-0.2) /100WBC PT 11.1 Cancelled (10.0-13.1) SEC INR 1.0 Cancelled (0.9-1.1) D-Dimer High Sensitivty 263 NG/ML VBG pH (7.32-7.43) VBG pCO2 mmHg VBG pO2 mmHg VBG HCO3 (22-26) mmol/L VBG O2 Saturation % VBG Base Excess mmol/L Sodium (135-145) mmol/L Potassium (3.3-5.1) mmol/L Chloride (96-108) mmol/L Carbon Dioxide (22-29) mmol/L Anion Gap (12-20) BUN (9-16) mg/dL Creatinine (0.5-1.4) mg/dL Estim Creat Clear Calc Estimated GFR Random Glucose (60-115) mg/dL Calcium (8.4-10.2) mg/dL Total Bilirubin (0.0-1.0) mg/dL Direct Bilirubin (0.0-0.5) mg/dL AST (5-31) U/L ALT (0-31) U/L Alkaline Phosphatase (39-117) U/L Troponin I High Sens (<3.5-17.0) ng/L B-Natriuretic Peptide 66 (<100) pg/mL Total Protein (6.5-8.0) g/dL Albumin (3.5-5.0) g/dL Lipase (8-78) U/L Urine Color Urine Appearance Urine pH (5.0-9.0) Ur Specific [place] (1.005-1.025) Urine Protein (Neg-Trace) mg/dL Urine Glucose (UA) (Negative) mg/dL Urine Ketones (Negative) mg/dL Urine Blood (Negative) Urine Nitrite (Negative) Ur Leukocyte Esterase (Negative) 08/09/22 08/09/22 Range/Units 07:00 11:47 WBC (4.8-10.8) X10*3/uL RBC (4.20-5.50) X10*6/uL Hgb (12.0-16.0) g/dl Hct (37.0-47.0) % MCV (80.0-98.0) fL MCH (27.0-33.0) pg MCHC (31.0-35.0) g/dl RDW (11.0-16.0) % Plt Count (160-400) X10*3/uL MPV (9.4-12.3) fL Immature Gran % (Auto) (0.0-0.4) % Neut % (Auto) (45-73) % Lymph % (Auto) (20-40) % Fleming % (Auto) (2-11) % Eos % (Auto) (0-4) % Baso % (Auto) (0-2) % Lymph # (Auto) (1.2-4.9) X10*3/uL Fleming # (Auto) (0.1-1.2) X10*3/uL Eos # (Auto) (0.0-0.4) X10*3/uL Baso # (Auto) (0.0-0.2) X10*3/uL Abs Immat Gran (auto) (0.00-0.03) X10*3/uL Absolute Neuts (auto) (2.0-8.3) x10*3/uL Absolute Nucleated RBC (0.0-0.012) X10*3/uL Nucleated RBC % (auto) (0.0-0.2) /100WBC PT (10.0-13.1) SEC INR (0.9-1.1) D-Dimer High Sensitivty NG/ML VBG pH 7.44 H (7.32-7.43) VBG pCO2 46 mmHg VBG pO2 27 mmHg VBG HCO3 32 H (22-26) mmol/L VBG O2 Saturation 37.0 % VBG Base Excess 6.9 mmol/L Sodium (135-145) mmol/L Potassium (3.3-5.1) mmol/L Chloride (96-108) mmol/L Carbon Dioxide (22-29) mmol/L Anion Gap (12-20) BUN (9-16) mg/dL Creatinine (0.5-1.4) mg/dL Estim Creat Clear Calc Estimated GFR Random Glucose (60-115) mg/dL Calcium (8.4-10.2) mg/dL Total Bilirubin (0.0-1.0) mg/dL Direct Bilirubin (0.0-0.5) mg/dL AST (5-31) U/L ALT (0-31) U/L Alkaline Phosphatase (39-117) U/L Troponin I High Sens (<3.5-17.0) ng/L B-Natriuretic Peptide (<100) pg/mL Total Protein (6.5-8.0) g/dL Albumin (3.5-5.0) g/dL Lipase (8-78) U/L Urine Color Yellow Urine Appearance Clear Urine pH >= 9.0 (5.0-9.0) Ur Specific [place] 1.015 (1.005-1.025) Urine Protein Negative (Neg-Trace) mg/dL Urine Glucose (UA) Negative (Negative) mg/dL Urine Ketones Negative (Negative) mg/dL Urine Blood Negative (Negative) Urine Nitrite Negative (Negative) Ur Leukocyte Esterase Negative (Negative) Independent Interpretation I performed an independent interpretation of an: EKG and Plain X-Ray Interpretation: EKG: normal sinus rhythm, rate 68 bpm, normal ID and QT intervals, no evidence of STEMI Radiology Impression Discussion of test interpretation with radiology: I have reviewed the radiologist's reading. Radiologist Impression: FINDINGS: Chest radiograph shows bilateral clear lung tucker. PERFUSION IMAGES: No segmental perfusion defects or other perfusion abnormalities are noted. NM/NM pul perfusion IMPRESSION: Based on perfusion only modified PIOPED 2 criteria, pulmonary thromboembolism is considered absent. FINDINGS: No significant abnormality is noted involving the heart, lungs, mediastinum, bony thorax or soft tissues. Status post median sternotomy. XR/XR chest 2V IMPRESSION: No acute disease. External Record Review External record reviewed: Inpatient record, Office record and Outpatient record Prescription Management I considered prescription management with: Pain Medication Chronic Conditions Patient?s care impacted by: Hypertension and Other (CAD) Discharge Plan Discharge Clinical Impression: Acute upper back pain, Nausea & vomiting Patient Disposition: Home, Self-Care Instructions: Acute Nausea and Vomiting (ED) Additional Instructions: You were evaluated in the emergency department today for left upper back/shoulder pain as well as nausea and vomiting. Your evaluation including labs and CT scan did not show evidence of any conditions requiring emergent treatment at this time. You are being prescribed metoclopramide for nausea, please use this as prescribed. Follow up with your primary care provider within 2 days. Return to the emergency department with worsening pain, persistent vomiting, fever 100.F or greater, chest pain, shortness of breath, or any other concerning symptoms. Prescriptions: New metoclopramide HCl 10 mg tablet 10 mg PO Q6H PRN (Reason: nausea and vomiting) Qty: 7 0RF No Action atorvastatin 40 mg tablet 80 mg PO DAILY 90 Days Qty: 180 3RF aspirin 81 mg tablet,delayed release (DR/EC) 81 mg PO DAILY Qty: 90 3RF amlodipine [Norvasc] 10 mg tablet 10 mg PO DAILY Qty: 90 3RF clopidogrel 75 mg tablet 75 mg PO DAILY Qty: 90 3RF metoprolol succinate 25 mg tablet extended release 24 hr 25 mg PO DAILY 90 Days Qty: 90 3RF Rx Instructions: To be taken w the Metoprolol Succinate 50 mg tab to equal 75mg a day metoprolol succinate 50 mg tablet extended release 24 hr 50 mg PO DAILY 90 Days Qty: 90 3RF Rx Instructions: To be taken w the Metoprolol Succinate 25 mg tab to equal 75mg daily quetiapine 50 mg tablet 50 mg PO BEDTIME acetaminophen 325 mg Tablet 650 mg PO Q6H PRN (Reason: Pain) melatonin 3 mg tablet 3 mg PO BEDTIME escitalopram oxalate 20 mg tablet 20 mg PO DAILY carvedilol 6.25 mg tablet 18.75 mg PO BID Protocol: Hold for SBP/HR < HOLD for SBP < : 90 HOLD for HR < : 60 Rx Instructions: or any combination for 18.75 mg nicotine (polacrilex) 4 mg lozenge 4 mg PO Q2H
--- NOTE | 2022-08-09 06:52 | PC.NURSE ---
Pt ca&ox3, no signs of distress. Provider in to assess pt. ekg completed. Pt changed in hospital attire. Will continue to monitor.
[2022-08-09 07:07] LABS: MANUAL DIFF FLAG NO
[2022-08-09 07:10] LABS: VBG Base Excess 6.9 mmol/L; VBG HCO3 32 mmol/L (22-26); VBG pCO2 46 mmHg; VBG pH 7.44 (7.32-7.43); VBG pO2 27 mmHg
[2022-08-09 07:11] LABS: Basophils Percent Auto 0.3 % (0-2); Eosinophils Absolute Auto 0.3 X10*3/uL (0.0-0.4); Eosinophils Percent Auto 3.8 % (0-4); Hematocrit 45.9 % (37.0-47.0); Hemoglobin 14.8 g/dl (12.0-16.0); Imm Gran Abs Auto 0.03 X10*3/uL (0.00-0.03); Imm Gran Pct Auto 0.3 % (0.0-0.4); Lymphocytes Percent Auto 21.8 % (20-40); Mean Corpuscular HGB Conc 32.2 g/dl (31.0-35.0); Mean Corpuscular Hemoglobin 31.4 pg (27.0-33.0); Mean Corpuscular Volume 97.5 fL (80.0-98.0); Mean Platelet Volume 10.6 fL (9.4-12.3); Monocytes Absolute Auto 0.6 X10*3/uL (0.1-1.2); Monocytes Percent Auto 6.1 % (2-11); Neutrophils Absolute Auto 6.1 x10*3/uL (2.0-8.3); Neutrophils Percent Auto 67.7 % (45-73); Platelet Count 255 X10*3/uL (160-400); Red Blood Count 4.71 X10*6/uL (4.20-5.50); Red Cell Distribution Width 13.2 % (11.0-16.0)
[2022-08-09 07:17] LABS: Prothrombin Time 11.1 SEC (10.0-13.1)
[2022-08-09 07:19] LABS: D Dimer High Sensitivity 263 NG/ML
[2022-08-09 07:22] LABS: Venous Blood Gas Refer to POC result
[2022-08-09 07:37] LABS: Troponin-I High Sensitivity < 2.7 ng/L (<3.5-17.0)
[2022-08-09 07:49] LABS: Anion Gap 13 (12-20); Blood Urea Nitrogen 8 mg/dL (9-16); Calcium 10.2 mg/dL (8.4-10.2); Carbon Dioxide 28 mmol/L (22-29); Chloride 102 mmol/L (96-108); Creatinine Clr Calc Pharmacy 75.7; Estimated Glomerular Filt Rate > 60; Glucose Random 105 mg/dL (60-115); Potassium 4.2 mmol/L (3.3-5.1); Sodium 139 mmol/L (135-145)
[2022-08-09] MEDS: ondansetron HCL 4 MG/2 ML VIAL IVPUSH ×2 (07:56→09:12)
[2022-08-09] MEDS: Morphine Sulfate 4 MG/ML CARTRIDGE IVPUSH ×2 (07:56→09:13)
--- NOTE | 2022-08-09 08:08 | PC.NURSE ---
currently in nuc med
[2022-08-09 08:21] LABS: B Type Natriuretic Peptide 66 pg/mL (<100)
[2022-08-09] MEDS: diphenhydrAMINE HCL 50 MG/ML VIAL 25 MG IVPUSH (11:41)
[2022-08-09] MEDS: methylPREDNISolone Sod Succ 125 MG/2 ML VIAL IVPUSH (11:41)
[2022-08-09] MEDS: Famotidine/PF 20 MG/2 ML VIAL IVPUSH (11:41)
[2022-08-09 11:57] LABS: Appearance Urine Clear; Color Urine Yellow; Glucose Urine UA Negative (Negative); Leukocyte Esterase Urine Negative (Negative); Nitrite Urine Negative (Negative); PH >= 9.0 (5.0-9.0); Specific Gravity - Urine 1.015 (1.005-1.025); Urine Blood Negative (Negative); Urine Ketones Negative (Negative); Urine Protein Negative (Neg-Trace)
[2022-08-09] MEDS: iohexoL 350 MG/ML 100 ML INFUS..BTL IV (13:11)
[2022-08-09 13:56] LABS: Alanine Aminotransferase 9 U/L (0-31); Alkaline Phosphatase 109 U/L (39-117); Aspartate Amino Transferase 11 U/L (5-31); Bilirubin Direct 0.2 mg/dL (0.0-0.5); Bilirubin Total 0.6 mg/dL (0.0-1.0); Lipase 10 U/L (8-78); Total Protein 7.4 g/dL (6.5-8.0)
[2022-08-09] MEDS: LORazepam 2 MG/ML VIAL 1 MG IVPUSH (14:48)
== END 2022-08-09 17:24 | disposition home or self-care (01) ==
PROVIDERS: Registered Nurse Emergency; Emergency Provider Internal Medicine
DX: M54.6 Pain in thoracic spine (principal); R11.2 Nausea with vomiting, unspecified; R06.02 Shortness of breath; I10 Essential (primary) hypertension; F17.210 Nicotine dependence, cigarettes, uncomplicated; F12.90 Cannabis use, unspecified, uncomplicated; Z79.02 Long term (current) use of antithrombotics/antiplatelets; Z79.82 Long term (current) use of aspirin; Z79.899 Other long term (current) drug therapy
CPT/HCPCS: 36415; 71046; 71275; 78580; 80048; 80076; 81003; 82803; 83690; 83880; 84484; 85025; 85379; 85610; 93005; 96374; 96375; 96376; 99285; A9540; J1200; J2060; J2270; J2405; J2930; Q9967

== ENCOUNTER 2022-12-21 22:17 | Emergency (ER) | payer OTHER, SELFPAY ==
[2022-12-21 22:35] VITALS: BP 144/67; PULSE 64; RESP 18; TEMP 36.7; O2SAT 97; BMI 23.9
--- NOTE | 2022-12-21 23:45 | ED.GENADULT ---
HPI - General Adult General Chief complaint: Anxiety Stated complaint: Back pain and anxiety Time Seen by Provider: 12/21/22 23:44 Source: patient, EMS, RN notes reviewed and old records reviewed Mode of arrival: EMS History of Present Illness HPI narrative: 52-year-old female with a past medical history of HTN, HLD, CAD s/p LAD stent, cerebral aneurysm, ETOH abuse, presenting to the ED complaining of increasing anxiety / panic since this evening. Reports mild SOB and feeling like she cannot settle herself w/assoc headache. Admits to history of open heart surgery in June, reports compliance w/Rx medications. admits symptoms are typical of anxiety attacks, denies currently taking any anxiolytic as is supposed to establish care with psychiatrist but has not. Denies chest pain, abdominal pain, nausea / vomiting, paresthesias Onset (ago): hour(s) Related Data Home Medications Medication Instructions Recorded Confirmed acetaminophen 325 mg tablet 650 mg PO Q6H PRN Pain 05/20/22 08/01/22 carvedilol 6.25 mg tablet 18.75 mg PO BID 08/01/22 08/01/22 escitalopram oxalate 20 mg tablet 20 mg PO DAILY 08/01/22 08/01/22 melatonin 3 mg tablet 3 mg PO BEDTIME 08/01/22 08/01/22 nicotine (polacrilex) 4 mg buccal 4 mg PO Q2H 08/01/22 08/01/22 lozenge quetiapine 50 mg tablet 50 mg PO BEDTIME 08/01/22 08/01/22 Previous Rx's Medication Instructions Recorded amlodipine 10 mg tablet (Norvasc) 10 mg PO DAILY #90 tabs 08/02/22 aspirin 81 mg tablet,delayed 81 mg PO DAILY #90 tabs 08/02/22 release atorvastatin 40 mg tablet 80 mg (2 x 40 mg) PO DAILY 90 days 08/02/22 #180 tabs clopidogrel 75 mg tablet 75 mg PO DAILY #90 tabs 08/02/22 metoprolol succinate 25 mg 25 mg PO DAILY 90 days #90 tabs 08/02/22 tablet,extended release 24 hr metoprolol succinate 50 mg 50 mg PO DAILY 90 days #90 tabs 08/02/22 tablet,extended release 24 hr metoclopramide HCl 10 mg tablet 10 mg PO Q6H PRN nausea and 05/31/23 vomiting #7 tabs Allergies Allergy/AdvReac Type Severity Reaction Status Date / Time Iodinated Contrast Media Allergy Mild RASH Verified 08/01/22 12:52 [CONTRAST, IV] DECONGESTIONS Allergy Unknown INCREASED Uncoded 08/01/22 12:52 HEART RATE Review of Systems Review of Systems: Constitutional: No Fever, No Chills, No Fatigue, No Malaise ENT/Mouth: No Ear Pain, No Nasal Congestion, No sore throat, No Rhinorrhea, No Swallowing Difficulty Eyes: No Eye Pain, No Swelling, No Redness, No Vision Changes Cardiovascular: No Chest Pain, +SOB, No Dyspnea on Exertion, No Edema, No Palpitations Respiratory: No Cough, No Sputum, No Dyspnea Gastrointestinal: No Nausea, No Vomiting, No Abdominal pain Musculoskeletal: No joint pain, No Myalgias, No Joint Swelling Skin: No Skin Lesions, No rash Neuro: No Weakness, No Numbness, No Paresthesias, No Loss of Consciousness, No Dizziness, + Headache Psych: + Anxiety/Panic, No Depression, No SI/HI/AH/VH, No Social Issues Yes all other systems are reviewed and are negative Constitutional: Constitutional: Reports as per [facility] Past Medical History Attestation statement: The following information was validated with the patient. Source: old records reviewed Medical History Cerebral microvascular disease Coronary artery disease HTN (hypertension) Cerebral aneurysm Myocardial infarct HTN (hypertension) Surgical History H/O heart artery stent H/O craniotomy Family History Family History Father CAD (coronary artery disease) Social History Social History Household Members: Significant Other Housing: Apartment Do you presently have visiting nurse or other home services: No Alcohol intake: current Alcohol intake frequency: does not drink Alcohol type: hard liquor Patient Tobacco Use Status: Current everyday Tobacco user Tobacco use type: Cigarette Cigarette Packs Per Day: 0.5 Cigarettes Per Day: 10.0 Years Smoked: 6 Smoked in Last 30 Days: No e-Cigarette/Vaping Use: Never Used Second Hand Smoke Exposure: Yes Use of substances other than those prescribed or required for medical reasons: No Substance Use Type: Marijuana Advance Directives: No Advance Directives Information Provided: No service: No Current occupational status: unemployed Physical Exam ED Vital Signs: Vital Signs - 24 hr 12/21/22 22:35 12/21/22 23:48 Temperature 98.0 F 98.1 F Pulse Rate 64 60 Respiratory Rate 18 15 Blood Pressure 144/67 H 140/75 H Pulse Oximetry 97 95 Oxygen Delivery Method Room Air Room Air BMI result Body Mass Index 23.9 Const General: cooperative, no acute distress and anxious Orientation/consciousness: patient oriented x3 Limitations: no limitations HENMT Head: Yes normal to inspection and Yes atraumatic Ears: hearing grossly normal bilaterally General nose exam: Normal external nose present Face and sinus: Yes normal facial exam Eyes General: appearance normal, both eyes and all related structures EOM: EOMs intact bilaterally Neck Neck: Yes normal visual inspection and Yes no meningeal signs Resp Effort & Inspection: normal respiratory effort and no respiratory distress Auscultation: clear to auscultation bilaterally, no crackles and no wheezes Cardio Rate: regular rate Heart sounds: S1 normal heart sound present and S2 normal heart sound present GI Inspection: Yes normal to inspection Palpation (GI): Soft to palpation, nontender, no guarding and not rigid Skin Rashes: no rashes Wounds: no wounds Neuro General: patient oriented x3, tone normal, moves all extremities, no meningeal signs and no focal motor deficits Cranial nerves: Yes CN's II-XII intact bilaterally Gait exam (Neuro): Normal gait present Extrem General: Yes normal to inspection Psych Other: restless Affect: Anxious affect present Course Course Course Narrative: -0055-- on re-evaluation patient reports symptomatic improvement. Feels safe for discharge home at this time Results discussed with patient including worrisome signs and symptoms and strict return precautions, and when to return to the emergency department. They verbalized understanding and feel safe for discharge at this time. Medications Administered Discontinued Medications Generic Name Dose Route Start Last Admin Trade Name Freq PRN Reason Stop Dose Admin Lorazepam 1 mg 12/21/22 23:52 12/22/22 00:06 Lorazepam 1 Mg Tablet PO 12/21/22 23:53 1 mg ONCE ONE Administration Medical Decision Making Medical Decision Making MDM Narrative: 52-year-old female with a past medical history of HTN, HLD, CAD s/p LAD stent, cerebral aneurysm, ETOH abuse, presenting to the ED complaining of increasing anxiety / panic since this evening. on exam vital signs stable, NAD, appears anxious, fidgety, lungs CTA. Concern for anxiety/ panic reaction. Lower suspicion for atypical ACS, PE or pneumonia. Unlikely infection or dissection plan: EKG, Ativan, re-evaluate Please refer to course for remaining clinical decision making, interpretation of labs/imaging results, and discussions with consultants and/or family members. Differential Diagnosis Differential Diagnoses: The differential diagnosis associated with the presentation includes As above Lab Data MDM Lab Attestation statement: I reviewed the patient's lab results. Independent Interpretation I performed an independent interpretation of an: EKG ( my interpretation EKG status bradycardia rate of 51. CA interval 142. QTC 460. No significant change when compared to prior. No STEMI) Radiology Impression Discussion of test interpretation with radiology: I have reviewed the radiologist's reading. External Record Review External record reviewed: Inpatient record, Office record, Outpatient record, Prior outpatient labs, Prior outpatient radiology, Primary care record and Outside ED record Tests considered The following testing was considered but not selected: As above Chronic Conditions Patient?s care impacted by: Other ( CAD) Discharge Plan Discharge Clinical Impression: Acute anxiety Patient Disposition: Home, Self-Care Instructions: Anxiety (ED) Additional Instructions: you need to follow-up with a psychiatrist Also follow-up with her PCP If symptoms persist or worsen return to the ED Prescriptions: No Action atorvastatin 40 mg tablet 80 mg PO DAILY 90 Days Qty: 180 3RF aspirin 81 mg tablet,delayed release (DR/EC) 81 mg PO DAILY Qty: 90 3RF amlodipine [Norvasc] 10 mg tablet 10 mg PO DAILY Qty: 90 3RF clopidogrel 75 mg tablet 75 mg PO DAILY Qty: 90 3RF metoprolol succinate 25 mg tablet extended release 24 hr 25 mg PO DAILY 90 Days Qty: 90 3RF Rx Instructions: To be taken w the Metoprolol Succinate 50 mg tab to equal 75mg a day metoprolol succinate 50 mg tablet extended release 24 hr 50 mg PO DAILY 90 Days Qty: 90 3RF Rx Instructions: To be taken w the Metoprolol Succinate 25 mg tab to equal 75mg daily quetiapine 50 mg tablet 50 mg PO BEDTIME acetaminophen 325 mg Tablet 650 mg PO Q6H PRN (Reason: Pain) melatonin 3 mg tablet 3 mg PO BEDTIME escitalopram oxalate 20 mg tablet 20 mg PO DAILY metoclopramide HCl 10 mg tablet 10 mg PO Q6H PRN (Reason: nausea and vomiting) Qty: 7 0RF carvedilol 6.25 mg tablet 18.75 mg PO BID Protocol: Hold for SBP/HR < HOLD for SBP < : 90 HOLD for HR < : 60 Rx Instructions: or any combination for 18.75 mg nicotine (polacrilex) 4 mg lozenge 4 mg PO Q2H Referrals: [facility] [Provider Group] [facility] [Outside]
[2022-12-21 23:48] VITALS: BP 140/75; PULSE 60; RESP 15; TEMP 36.7; O2SAT 95
--- NOTE | 2022-12-21 23:52 | ECG_ITS ---
Test Reason : ANXIETY Blood Pressure : / mmHG Vent. Rate : 051 BPM Atrial Rate : 051 BPM P-R Int : 142 ms QRS Dur : 072 ms QT Int : 452 ms P-R-T Axes : 034 027 081 degrees QTc Int : 416 ms Sinus bradycardia Nonspecific T wave abnormality Borderline ECG When compared with ECG of 09-AUG-2022 06:39, No significant change was found Referred By: Sabine Ruiz Electronically Signed By:MINERVA VALDES MD
[2022-12-22] MEDS: LORazepam 1 MG TABLET PO (00:06)
== END 2022-12-22 01:58 | disposition home or self-care (01) ==
PROVIDERS: Emergency Provider Emergency Medicine
DX: F41.9 Anxiety disorder, unspecified (principal); R06.02 Shortness of breath; R00.1 Bradycardia, unspecified; I10 Essential (primary) hypertension; E78.5 Hyperlipidemia, unspecified; F17.210 Nicotine dependence, cigarettes, uncomplicated; F12.90 Cannabis use, unspecified, uncomplicated; Z79.899 Other long term (current) drug therapy; Z79.82 Long term (current) use of aspirin
CPT/HCPCS: 93005; 99283; 99284

== ENCOUNTER 2024-11-23 08:46 | Emergency (ER) | payer OTHER, SELFPAY ==
--- NOTE | ~2024-11-23 | XR_ITS ---
CLINICAL HISTORY: cat bite to dorsal left hand + swelling 3 view left hand Comparison: None provided Findings: No fracture or malalignment. No radiopaque foreign body. No soft tissue gas. Negative ulnar variance. Impression: No radiopaque foreign body or evidence of abscess. Negative ulnar variance. This document has been electronically signed by: Roland Freedman MD on 11/23/2024 10:22:21
[2024-11-23 08:49] VITALS: BP 198/106; PULSE 104; RESP 16; TEMP 36.1; O2SAT 94; BMI 29.2
--- OUTSIDE RECORDS SUMMARY | 2024-11-23 09:14 | XMS_ITS | Clinical Summary ---
Author Organization [facility] Address [address] [place] [id number] Care Team Providers Care Stone Gluer Name Role Phone Unknown Primary Care Provider [phone] Allergies Active Allergy Reactions Criticality Noted Date Comments Oxymetazoline Other (See Comments) 04/12/2022 Rapid heart rate Iodinated Contrast Media Rash/Dermatitis Low 2022 Medications amoxicillin-cla vulanate (AUGMENTIN) 875-125 MG per tablet Take 1 tablet by mouth 2 (two) times a day. Take as directed or until you run out 10 tablet 04/12/2022 Active Social History Tobacco Use Types Packs/Day Years Used Date Smoking Tobacco: Every Day Cigarettes Smokeless Tobacco: Never Tobacco Cessation:Ready to Q uit: Not Asked; Counseling Given: Not Answered Comments Unknown Sex and Gender Information Value Date Recorded Sex Assigned at Not on file Legal Sex Female 12:10 AM EST Gender Identity Not on file Sexual Orientation Not on file Last Filed Vital Signs Vital Sign Reading Time Taken Comments Blood Pressure 141/89 04/12/2022 8:31 AM EST Pulse 74 04/12/2022 8:31 AM EST Temperature 35.3 C (95.6 F) 04/12/2022 8:31 AM EST Respiratory Rate 18 04/12/2022 8:31 AM EST Oxygen Saturation 95% 04/12/2022 8:31 AM EST Inhaled Oxygen Concentration - - Weight - - Height - - Body Mass Index - - Plan of Treatment Health Maintenance Due Date Last Done Comments Hepatitis C Virus Screening 1970 HIV Screening 09/16/1983 DTaP/Tdap/Td Vaccines (1 - Tdap) 1989 Hepatitis B Vaccines (1 of 3 - 19+ 3-dose series) 1989 Pneumococcal Vaccines 50+ (1 of 2 - PCV) 1989 Pap Smear (Ages 21-65) 09/16/1991 Mammogram 2010 Colonoscopy 09/16/2015 Zoster (Shingles) Vaccine (1 of 2) 2020 Influenza Vaccine 10/10/2024 01/02/2018, , 12/24/2013, Additional history exists COVID-19 Vaccine (2023-2 5 season) 2024 Insurance [facility] MEDICARE OUT OF NETWORK Care Teams Stone Gluer Relationship Specialty Start Date End Date Unknown Unknow Provider Address PCP - General 04/12/22
--- OUTSIDE RECORDS SUMMARY | 2024-11-23 09:14 | XMS_ITS ---
Author Name [facility] Organization Unknown Encounters Encounter Type Encounter Reason Primary Diagnosis Location Date Emergency Other specified disorders of teeth and supporting structures [facility] 04/12/2022 Care Team Organization Name Specialty Phone Email Start Date End [facility] 04/12/2022 04/12/2022 [facility] 04/12/2022
--- OUTSIDE RECORDS SUMMARY | 2024-11-23 09:14 | XMS_ITS | Clinical Summary ---
Author Organization [email or web address] Address [address] [place] [address] Care Team Providers Care Metal Bonding Helper Name Role Phone Unavailable Primary Care Provider Unavailabl e Allergies Active Allergy Reactions Criticality Noted Date Comments Iodinated Contrast Media 04/10/2022 Other reaction(s): hives Penicillins Other 04/25/2022 Pseudoephedrine 04/10/2022 Other reaction(s): tachycardia Medications QUEtiapine (SEROquel) 25 MG tablet Take 1 tablet by mouth. 2 Active prochlorperazin e (Compazine) 10 MG tablet TAKE 1 TABLET BY MOUTH 2 TIMES A DAY,X5 DAYS,PLEASE USE NEEDED FOR HEADACHE 2 Active nicotine polacrilex (Commit) 2 MG lozenge Take 2 mg by mouth. 2 Active mirtazapine (Remeron) 30 MG tablet Take 30 mg by mouth at bedtime. 2 Active metoprolol succinate XL (Toprol-XL) 50 MG 24 hr tablet TAKE 1 TABLET BY MOUTH EVERY DAY FOR 30 DAYS 3 Active melatonin 3 MG tablet Take 3 mg by mouth at bedtime. 3 Active LORazepam (Ativan) 1 MG tablet TAKE 1 TABLET BY MOUTH AT BEDTIME NEEDED FOR ANXIETY 2 Active lisinopril 40 MG tablet Take 40 mg by mouth. 2 Active hydrOXYzine HCl (Atarax) 25 MG tablet TAKE 1 TABLET BY MOUTH 4 TIMES A DAY NEEDED FOR ANXIETY 2 Active gabapentin (Neurontin) 100 MG capsule Take 100 mg by mouth. 2 Active escitalopram (Lexapro) 20 MG tablet Take 20 mg by mouth. 2 Active Diclofenac Sodium 1 % gel APPLY TO AFFECTED AREA 4 TIMES A DAY FOR 30 DAYS 3 Active chlorhexidine (Peridex) 0.12 % solution SWISH AND SPIT 15 ML'S TWICE DAILY AFTER BREAKFAST/BEFO RE BEDTIME FOLLOWING BRUSHING AND FLOSSING 3 Active atorvastatin (Lipitor) 40 MG tablet Take 80 mg by mouth. 2 Active aspirin 81 MG EC tablet Take 81 mg by mouth. 2 Active amLODIPine (Norvasc) 10 MG tablet Take 1 tablet by mouth. 2 Active acetaminophen (Tylenol 8 Hour) 650 MG ER tablet TAKE 2 TABLETS BY MOUTH EVERY 8 HOURS FOR 10 DAYS NEEDED FOR PAIN 3 Active Social History Tobacco Use Types Packs/Day Years Used Date Smoking Tobacco: Every Day Cigarettes Smokeless Tobacco: Current Tobacco Cessation:Ready to Q uit: Not Asked; Counseling Given: Not Answered Alcohol Use Standard Drinks/Week Comments Yes 0 (1 standard drink = 0.6 oz pur e alcohol) Comments Unknown Sex and Gender Information Value Date Recorded Sex Assigned at Female 04/10/2022 1:36 PM EST Legal Sex Female 1:29 PM EST Gender Identity Female 04/10/2022 1:36 PM EST Sexual Orientation Choose not to disclose 2022 1:36 PM EST Last Filed Vital Signs Vital Sign Reading Time Taken Comments Blood Pressure 132/78 04/10/2022 3:46 PM EST Pulse - - Temperature - - Respiratory Rate - - Oxygen Saturation - - Inhaled Oxygen Concentration - - Weight - - Height - - Body Mass Index - - Plan of Treatment Health Maintenance Due Date Last Done Comments CT Colonography 1970 Colonoscopy 1970 Colorectal Cancer Screening 1970 Dental Oral Exam 1970 Dental Prophylaxis 1970 Dental X-Ray: Full Mouth 1970 Depression Screening 1970 FIT DNA/Cologuard 1970 FIT 1970 FOBT 1970 HIV Screening 1970 Lipid Panel 1970 SDOH Screening 1970 Sigmoidoscopy 1970 Disability Screening 1970 Alcohol/Substance Use Screening 1982 Hepatitis C Screening 1988 Hepatitis B Vaccines (1 of 3 - 19+ 3-dose series) 1989 Pap Smear 09/16/1991 Cervical Cancer Screening 2000 HPV/Cotest 2000 Pneumococcal Vaccine: 50+ Years (2 of 2 - PCV) 01/30/2007 01/30/2006 Mammogram 2010 Zoster Vaccines (1 of 2) 2020 Dental X-Ray: Bitewings 04/11/2023 04/10/2022 Tobacco Screening 04/25/2023 04/25/2022 DTaP/Tdap/Td Vaccines (2 - Td or Tdap) 12/25/2023 12/24/2013 COVID-19 Vaccine ( - 2023- season) 2024 Influenza Vaccine (#1) 2024 8, 02/07/2017, 12/24/2013, Additional history exists RSV Patients and Patients Aged 60 years or older (1 - 1-dose 75+ series) 2045 HIB Vaccines Aged Out No longer eligi ble based on patient's age to complete this topic HPV Vaccines Aged Out No longer eligi ble based on patient's age to complete this topic Hepatitis A Vaccines Aged Out No long er eligible based on patient's age to complete this topic IPV Vaccines Aged Out No longer eligi ble based on patient's age to complete this topic Meningococcal B Vaccine Aged Out No l onger eligible based on patient's age to complete this topic Meningococcal Vaccine Aged Out No radha mik eligible based on patient's age to complete this topic RSV under 20 months Aged Out No longe r eligible based on patient's age to complete this topic Rotavirus Vaccines Aged Out No longer eligible based on patient's age to complete this topic Procedures Procedure Name Priority Date/Time Associated Diagnosis Comments BITEWING - SINGLE RADIOGRAPHIC IMAGE Routine 04/10/2022 3:30 PM EST Periapical abscess without sinus Rampant dental caries from Last 3 Months or Most Recently Relevant to Health Maintenance Insurance DENTAL - [facility]
--- NOTE | 2024-11-23 09:18 | PC.NURSE ---
Addendum entered by Fawn Pena RN 11/23/24 09:19: Patient is a 52-year-old female with a past medical history of HTN, HLD, CAD s/p LAD stent, cerebral aneurysm, ETOH abuse, presenting to the ED complaining after being bitten and scratched by the family cat. Left hand swollen and painful. Cat is not currently vaccinated. Respirations even and non-labored. Abdomen soft, non-tender with positive bowel sounds. Original Note: Medical History Cerebral microvascular disease Coronary artery disease HTN (hypertension) Cerebral aneurysm Myocardial infarct HTN (hypertension)
--- NOTE | 2024-11-23 09:20 | ED.ANIMALBIT ---
HPI - Animal Bite General Chief Complaint: Animal Bite Stated Complaint: cat scratch Time Seen by Provider: 11/23/24 09:05 Source: patient Mode of arrival: ambulatory Limitations: no limitations History of Present Illness ED Provider: DAISHA OMER PA-C HPI narrative: 54-year-old right hand dominant female with past medical history significant for HTN, ETOH abuse, CAD presents to the ED today for evaluation s/p cat bite to left hand sustained last night. She reports her own cat bit her left hand last night. The cat is not up-to-date on vaccinations, including rabies. Reports pain and swelling to the left hand. 11/19 at present. No radiation. No fever, chills, numbness/tingling/weakness. Her tetanus is not UTD. Related Data Home Medications ?Medication ?Instructions ?Recorded ?Confirmed acetaminophen 325 mg tablet 650 mg PO Q6H PRN Pain 05/20/22 08/01/22 carvedilol 6.25 mg tablet 18.75 mg PO BID 08/01/22 08/01/22 escitalopram oxalate 20 mg tablet 20 mg PO DAILY 08/01/22 08/01/22 melatonin 3 mg tablet 3 mg PO BEDTIME 08/01/22 08/01/22 nicotine (polacrilex) 4 mg buccal 4 mg PO Q2H 08/01/22 08/01/22 lozenge quetiapine 50 mg tablet 50 mg PO BEDTIME 08/01/22 08/01/22 Previous Rx's ?Medication ?Instructions ?Recorded aspirin 81 mg tablet,delayed 81 mg PO DAILY #90 tabs 08/02/22 release clopidogrel 75 mg tablet 75 mg PO DAILY #90 tabs 08/02/22 metoprolol succinate 25 mg 25 mg PO DAILY 90 days #90 tabs 08/02/22 tablet,extended release 24 hr metoclopramide HCl 10 mg tablet 10 mg PO Q6H PRN nausea and 08/09/22 vomiting #7 tabs metoprolol succinate 50 mg 50 mg PO DAILY #90 tabs 10/10/23 tablet,extended release 24 hr amlodipine 10 mg tablet 10 mg PO DAILY #30 tabs 05/19/24 atorvastatin 40 mg tablet 80 mg (2 x 40 mg) PO DAILY #60 tabs 05/19/24 amoxicillin 875 mg-potassium 1 tab PO BID 10 days #20 tabs 11/23/24 clavulanate 125 mg tablet oxycodone 5 mg tablet 5 mg PO Q8H PRN pain (scale score 11/23/24 7-10) 2 days #6 tabs Allergies Allergy/AdvReac Type Severity Reaction Status Date / Time Iodinated Contrast Media Allergy Mild RASH Verified 11/23/24 08:50 (CONTRAST, IV) DECONGESTIONS Allergy Unknown INCREASED Uncoded 08/01/22 12:52 HEART RATE Review of Systems Review of Systems: Yes all other systems are reviewed and are negative [facility] Past Medical History Attestation statement: The following information was validated with the patient. Source: old records reviewed and nursing notes reviewed Medical History Cerebral microvascular disease Coronary artery disease HTN (hypertension) Cerebral aneurysm Myocardial infarct HTN (hypertension) Surgical History H/O heart artery stent H/O craniotomy Family History Family History Father CAD (coronary artery disease) Social History Social History Household Members: Significant Other Housing: Apartment Do you presently have visiting nurse or other home services: No Alcohol intake: current Alcohol intake frequency: 3 or more drinks per day Alcohol type: hard liquor Patient Tobacco Use Status: Current everyday Tobacco user Tobacco use type: Cigarette Cigarette Packs Per Day: 0.5 Cigarettes Per Day: 10.0 Years Smoked: 6 Smoked in Last 30 Days: Yes e-Cigarette/Vaping Use: Never Used Second Hand Smoke Exposure: Yes Use of substances other than those prescribed or required for medical reasons: No Substance Use Type: Marijuana Advance Directives: No Advance Directives Information Provided: No service: No Current occupational status: unemployed Physical Exam ED Vital Signs: Vital Signs - 24 hr 11/23/24 08:49 11/23/24 11:08 Temperature 96.9 F 97.9 F Pulse Rate 104 H 83 Respiratory Rate 16 18 Blood Pressure 198/106 H 188/90 H Pulse Oximetry 94 98 Oxygen Delivery Method Room Air Room Air BMI result Body Mass Index 29.2 tachycardic, hypertensive General: anxious appearing, tearful Skin: +see photo of left hand below. two puncture wounds noted to dorsal aspect of left hand with minimal swelling/ erythema. no drainage. area is indurated, no fluctuance, crepitus, pointing. no streaking. no expressible discharge. Head: Normocephalic, atraumatic. EENT: Hearing is intact b/l. Conjunctiva clear. PERRLA. EOM intact. Moist mucous membranes.? Cardiac: Chest wall symmetric. RRR Lungs: Normal respiratory effort without accessory muscle use. CTA bilaterally Ext: +FROM intact to L wrist and all digits, pain with making a fist, 2+radial pulse. Neuro: AOx3. Normal speech. Ambulating with steady gait. Psych: Appropriate mood and affect. Responds appropriately to questions. Course Course Course Narrative: Patient has a leukocytosis to 12.4 which appears to be around her baseline when compared to priors. H&H stable. Chemistry without acute electrolyte abnormality requiring intervention. No LUKE. Liver function around baseline. X-ray left hand without evidence of abscess or osseous injury. > patient received a dose of Unasyn in the ED today. Morphine and IV tyelnol for pain control. NSAIDs avoided due to patient's anticoagulation. > her exam is not concerning for abscess, tenosynovitis, or lymphangitis. She is afebrile. She has a cellulitis associated with a cat bite. > her tetanus was updated in the ED. rabies vaccine/immunoglobulin started. She will be following up with the infusion center outpatient. > patient will be discharged home with Augmentin, Tylenol and oxycodone for breakthrough pain. Patient has remained stable throughout ED visit today. Discussed worrisome signs and symptoms and when to return to the ED. All questions answered at this time. Patient is agreeable with disposition and stable for discharge. Medications Administered Discontinued Medications Generic Name Dose Route Start Last Admin Trade Name Freq PRN Reason Stop Dose Admin Diphtheria/Tetanus/Acell Pertussis 0.5 ml 11/23/24 09:17 11/23/24 09:43 Diphth,Pertus(Acell),Tet Adult 0.5 Ml Syringe IM 11/23/24 09:18 0.5 ml .ONCE ONE Administration Ampicillin Sodium/Sulbactam 100 mls @ 200 mls/hr 11/23/24 09:23 11/23/24 09:56 Sodium 3 gm/ Sodium Chloride IV 11/23/24 09:52 200 mls/hr ONCE ONE Administration Acetaminophen 1,000 mg in 100 mls @ 400 mls/hr 11/23/24 09:24 11/23/24 09:56 Ofirmev IV 11/23/24 09:38 400 mls/hr ONCE ONE Administration Morphine Sulfate 4 mg 11/23/24 10:25 11/23/24 11:12 Morphine Sulfate 4 Mg/Ml Cartridge IVPUSH 11/23/24 10:26 4 mg ONCE ONE Administration Protocol Rabies Immune Globulin 1,496.86 unit 11/23/24 09:17 11/23/24 09:44 Rabies Immune Globulin/Pf 300 Unit/Ml Vial 20 unit/kg (1496.86 unit) 11/23/24 09:18 1,496.86 unit IM Administration ONCE ONE Rabies Vaccine 1 ml 11/23/24 09:17 11/23/24 09:41 Rabies Vaccine (Pcec)/Pf 1 Ml Vial IM 11/23/24 09:18 1 ml .ONCE ONE Administration Medical Decision Making Medical Decision Making MDM Narrative: 54-year-old right hand dominant female with past medical history significant for HTN, ETOH abuse, CAD presents to the ED today for evaluation s/p cat bite to left hand sustained last night. hypertensive and tachycardic, afebrile. She is quite anxious appearing, tearful. Please refer to exam portion for findings. Differential diagnosis includes cat bite, cellulitis. Unlikely lymphangitis, tenosynovitis, abscess, fracture, retained foreign body. Plan for screening labs, x-ray, Tdap, rabies vaccine/immunoglobulin, and disposition. Will provide patient with 1 dose of Unasyn in the ED. Differential Diagnosis Differential Diagnoses: The differential diagnosis associated with the presentation includes as above. Admission/Observation not indicated. Lab Data [facility] Lab Attestation statement: I reviewed the patient's lab results. as above. 11/23/24 09:44 11/23/24 09:44 Labs: Lab Results 11/23/24 Range/Units 09:44 WBC 12.4 H (4.8-10.8) X10*3/uL RBC 4.51 (4.20-5.50) X10*6/uL Hgb 15.8 (12.0-16.0) g/dl Hct 44.0 (37.0-47.0) % MCV 97.6 (80.0-98.0) fL MCH 35.0 H (27.0-33.0) pg MCHC 35.9 H (31.0-35.0) g/dl RDW 13.1 (11.0-16.0) % Plt Count 248 (160-400) X10*3/uL MPV 10.3 (9.4-12.3) fL Immature Gran % (Auto) 0.4 (0.0-0.4) % Neut % (Auto) 77.9 H (45-73) % Lymph % (Auto) 14.7 L (20-40) % [place] % (Auto) 6.1 (2-11) % Eos % (Auto) 0.6 (0-4) % Baso % (Auto) 0.3 (0-2) % Lymph # (Auto) 1.8 (1.2-4.9) X10*3/uL [place] # (Auto) 0.8 (0.1-1.2) X10*3/uL Eos # (Auto) 0.1 (0.0-0.4) X10*3/uL Baso # (Auto) 0.0 (0.0-0.2) X10*3/uL Abs Immat Gran (auto) 0.05 H (0.00-0.03) X10*3/uL Absolute Neuts (auto) 9.6 H (2.0-8.3) x10*3/uL Absolute Nucleated RBC 0.000 (0.0-0.012) X10*3/uL Nucleated RBC % (auto) 0.0 (0.0-0.2) /100WBC Sodium 143 (135-145) mmol/L Potassium 3.3 (3.3-5.1) mmol/L Chloride 106 (96-108) mmol/L Carbon Dioxide 24 (22-29) mmol/L Anion Gap 16 (12-20) BUN 7 L (9-16) mg/dL Creatinine 0.63 (0.5-1.4) mg/dL Estim Creat Clear Calc 98.9 Estimated GFR > 60 Random Glucose 97 (60-115) mg/dL Calcium 8.9 D (8.4-10.2) mg/dL Total Bilirubin 0.6 (0.0-1.0) mg/dL AST 18 (5-31) U/L ALT 11 (0-31) U/L Alkaline Phosphatase 123 H (39-117) U/L Total Protein 7.1 (6.5-8.0) g/dL Albumin 4.1 (3.5-5.0) g/dL Independent Interpretation I performed an independent interpretation of an: Plain X-Ray Interpretation: xr left hand without acute osseous abnormality Radiology Impression Discussion of test interpretation with radiology: I have reviewed the radiologist's reading. Radiologist Impression: Procedure(s): XR hand LT min 3V Accession Number(s): [id number] cc: Physician,Unknown ; Daisha Omer~ Reason for Exam: cat bite to dorsal left hand + swelling CLINICAL HISTORY: cat bite to dorsal left hand + swelling 3 view left hand Comparison: None provided Findings: No fracture or malalignment. No radiopaque foreign body. No soft tissue gas. Negative ulnar variance. Impression: No radiopaque foreign body or evidence of abscess. Negative ulnar variance. This document has been electronically signed by: Roland Freedman MD on 11/23/2024 10:22:21 Independent Historian Clinical information obtained from an independent historian. History obtained from or confirmed by: Spouse External Record Review External record reviewed: Inpatient record Prescription Management I considered prescription management with: Pain Medication (oxycodone, tylenol) and Antibiotic (augmentin) Chronic Conditions Patient?s care impacted by: Hypertension Social Determinants Patient?s care significantly limited by Social Determinants of Health including: Other Social Determinant of Health Critical Care Time Critical Care Time Critical Care Time: No Discharge Plan Discharge Clinical Impression: Cat bite Patient Disposition: Home, Self-Care Instructions: Animal Bite (ED), Rabies (ED) Additional Instructions: You have been evaluated in the Emergency Department today for a cat bit to your left hand. Please keep the area surrounding the wounds clean and dry and watch closely for signs of infection. You were given a dose of Unasyn (an antibiotic) in ED today. Augmentin is an antibiotic that has been sent to your pharmacy for treatment. On Augmentin, softer bowel movements are to be expected. Call your provider if you move your bowels more than 4 times a day, your bowel movements are almost all liquid, or you get a rash.? Please take the antibiotics prescribed to you in full, as directed. You were also provided with the first rabies shot in the rabies vaccination treatment series. As discussed, please follow up with the infusion center for subsequent vaccinations over the next week. Instructions provided on separate paper. Your tetanus vaccination was updated today. Please follow up with your primary care provider within two days. Take Tylenol at home for pain/ discomfort. I am sending oxycodone, a controlled pain medication, to your pharmacy for you to take for breakthrough pain control. Please use this with caution as opioid pain medications have addictive properties. I have also provided you with Narcan as accidental overdoses on oxycodone can occur. Opioid pain medications can often cause constipation. I recommend taking this with an over the counter laxative and/or stool softener to help move your bowels. Return to the Emergency Department if you experience worsening or uncontrolled pain, spreading redness, fevers 100.4? or greater, pus from your bite, or for any other concerning symptoms. In the case of an emergency call 911. Rabies follow up with the [facility]: Upon discharge from the ED today, you will be contacted by the Infusion Center to schedule your follow up Rabies vaccines. You will need a total of 3 more injections. If for some reason you do not receive a call, please call the Infusion Center directly at [phone]. Follow up with your primary care provider after completion of the vaccine to have a titer drawn to ensure the vaccines effectiveness. Prescriptions: New amoxicillin-pot clavulanate 875-125 mg tablet 1 tab PO BID 10 Days Qty: 20 0RF oxycodone 5 mg tablet 5 mg PO Q8H PRN (Reason: pain (scale score 7-10)) 2 Days Qty: 6 0RF Rx Instructions: Partial Fill upon patient request. No Action aspirin 81 mg tablet,delayed release (DR/EC) 81 mg PO DAILY Qty: 90 3RF clopidogrel 75 mg tablet 75 mg PO DAILY Qty: 90 3RF metoprolol succinate 25 mg tablet extended release 24 hr 25 mg PO DAILY 90 Days Qty: 90 3RF Rx Instructions: To be taken w the Metoprolol Succinate 50 mg tab to equal 75mg a day metoprolol succinate 50 mg tablet extended release 24 hr 50 mg PO DAILY Qty: 90 3RF atorvastatin 40 mg tablet 80 mg PO DAILY Qty: 60 0RF amlodipine 10 mg tablet 10 mg PO DAILY Qty: 30 0RF quetiapine 50 mg tablet 50 mg PO BEDTIME acetaminophen 325 mg Tablet 650 mg PO Q6H PRN (Reason: Pain) melatonin 3 mg tablet 3 mg PO BEDTIME escitalopram oxalate 20 mg tablet 20 mg PO DAILY metoclopramide HCl 10 mg tablet 10 mg PO Q6H PRN (Reason: nausea and vomiting) Qty: 7 0RF carvedilol 6.25 mg tablet 18.75 mg PO BID Protocol: Hold for SBP/HR < HOLD for SBP < : 90 HOLD for HR < : 60 Rx Instructions: or any combination for 18.75 mg nicotine (polacrilex) 4 mg lozenge 4 mg PO Q2H Referrals: Physician,Unknown J [Primary Care Provider, Medical] Print Language: Kazakh
[2024-11-23] MEDS: Rabies Vaccine (PCEC)/PF 1 ML VIAL IM (09:41)
[2024-11-23] MEDS: Diphth,Pertus(ACell),Tet Adult 0.5 ML SYRINGE IM (09:43)
[2024-11-23 09:49] LABS: MANUAL DIFF FLAG NO
[2024-11-23 09:51] LABS: Hematocrit 44.0 % (37.0-47.0); Hemoglobin 15.8 g/dl (12.0-16.0); Imm Gran Abs Auto 0.05 X10*3/uL (0.00-0.03); Imm Gran Pct Auto 0.4 % (0.0-0.4); Lymphocytes Absolute Auto 1.8 X10*3/uL (1.2-4.9); Mean Corpuscular HGB Conc 35.9 g/dl (31.0-35.0); Mean Corpuscular Hemoglobin 35.0 pg (27.0-33.0); Mean Corpuscular Volume 97.6 fL (80.0-98.0); NRBC Abs Auto 0.000 X10*3/uL (0.0-0.012); NRBC Pct Auto 0.0 /100WBC (0.0-0.2); Platelet Count 248 X10*3/uL (160-400); Red Blood Count 4.51 X10*6/uL (4.20-5.50); White Blood Count 12.4 X10*3/uL (4.8-10.8)
[2024-11-23 10:04] LABS: Alanine Aminotransferase 11 U/L (0-31); Albumin Level 4.1 g/dL (3.5-5.0); Alkaline Phosphatase 123 U/L (39-117); Anion Gap 16 (12-20); Aspartate Amino Transferase 18 U/L (5-31); Blood Urea Nitrogen 7 mg/dL (9-16); Calcium 8.9 mg/dL (8.4-10.2); Carbon Dioxide 24 mmol/L (22-29); Chloride 106 mmol/L (96-108); Creatinine Clr Calc Pharmacy 98.9; Estimated Glomerular Filt Rate > 60; Potassium 3.3 mmol/L (3.3-5.1); Sodium 143 mmol/L (135-145); Total Protein 7.1 g/dL (6.5-8.0)
--- NOTE | 2024-11-23 10:48 | PC.NURSE ---
Abx ordered prior to blood cultures and lactic
--- NOTE | 2024-11-23 11:03 | MHC.EDTECH ---
per charge nurse gladys Rivera to draw blood cultures after nurse hung antibiotics.
[2024-11-23 11:08] VITALS: BP 188/90; PULSE 83; RESP 18; TEMP 36.6; O2SAT 98
[2024-11-23] MEDS: Naloxone HCl Nasal TAKE HOME 4 MG SPRAY 8 MG NOSTRILALT (11:38)
[2024-11-23 11:44] VITALS: BP 188/90; PULSE 83; RESP 18; TEMP 36.6; O2SAT 98
== END 2024-11-23 11:45 | disposition home or self-care (01) ==
PROVIDERS: Physician Assistant Medical; Emergency Provider Emergency Medicine
DX: S61.452A Open bite of left hand, initial encounter (principal); W55.01XA Bitten by cat, initial encounter; Y93.9 Activity, unspecified; Y92.039 Unspecified place in apartment as the place of occurrence of the external cause; Y99.9 Unspecified external cause status; Z23 Encounter for immunization; Z20.3 Contact with and (suspected) exposure to rabies
CPT/HCPCS: 36415; 73130; 80053; 85025; 87040; 90375; 90471; 90675; 90715; 96365; 96372; 96375; 99285; J0131; J0295; J2270

== ENCOUNTER → 2024-11-23 09:17 | Outpatient (BNV) | payer OTHER, SELFPAY | PROVIDERS: Emergency Provider Emergency Medicine; Visit Provider Radiology Vascular & Interventional Radiology | DX: S61.432A Puncture wound without foreign body of left hand, initial encounter (principal); W55.01XA Bitten by cat, initial encounter | CPT/HCPCS: 73130 ==